=== PATIENT | female | born 1950 ===

== ENCOUNTER 2017-11-05 10:44 | Inpatient (IN) | payer MEDICARE, OTHER ==
[2017-11-05 10:57] VITALS: BMI 23.3
[2017-11-06 06:31] LABS: HEMOGLOBIN 8.9 g/dL (12.0-16.0); MEAN CELL VOLUME 91.9 fl (81.0-99.0); MEAN CORPUSCULAR HGB CONC 34.8 g/dL (33.0-37.0); RBC 2.79 Mil/uL (3.80-5.20); RED CELL DISTRIBUTION WIDTH 14.1 % (11.5-14.5); WHITE BLOOD COUNT 8.8 K/uL (4.8-10.8)
[2017-11-06 07:13] LABS: ALBUMIN 2.9 g/dL (3.5-5.0); CALCIUM 9.5 mg/dL (8.4-10.2)
[2017-11-06] MEDS: Lidocaine 5% Patch TD SCH (08:11)
--- NOTE | 2017-11-06 16:56 | PCM.OPOC ---
Physiatry Overall Plan of Care - Overall Plan of Care Estimated Length of Stay in Weeks: 4 Rehab Impairment: Mobility, Gait, Speech, Balance, Coordination Etiologic Diagnosis: Cerebrovascular Accident Rehab/Medical Prognosis: Guarded - Anticipated Interventions Physical Therapy:: Yes Occupational Therapy:: Yes Speech Therapy:: Yes Recreational Therapy:: Yes - Therapy Goals Bed Mobility: Moderate Assistance Ambulation: Moderate Assistance Functional Positional Changes:: Moderate Assistance - Discharge Plan Identification of Barriers to Discharge: Home Situation Discharge Destination: Subacute
--- NOTE | 2017-11-06 17:03 | CP.PCM.CON ---
History of Present Illness - History of Present Illness History of Present Illness: Dr Michelle PMR consultation on Marilyn Givens, born 1950, who has been admitted to [facility] for acute inpatient rehabilitation following a left CVA with dense right HP. There is some UE/LE ROM but 1-2/5 overall. Had been living alone [employer]. tPA had been given in the ER. New severe expressive aphasia Review of Systems - Review of Systems Systems not reviewed;Unavailable: Other (expressive aphasia) Past Patient History - Past Medical History & Family History Past Medical History?: Yes - Past Social History Smoking Status: Never Smoked Alcohol: None Drugs: Denies Home Situation {Lives}: Alone - CARDIAC Hx Hypercholesterolemia: Yes Hx Hypertension: Yes - PULMONARY Hx Respiratory Disorders: No - NEUROLOGICAL HX Cerebrovascular Accident: Yes - HEENT Hx HEENT Problems: No Hx Difficulty Chewing: Yes (loose dentures) - RENAL Hx Chronic Kidney Disease: No - ENDOCRINE/METABOLIC Hx Diabetes Mellitus Type 2: Yes - HEMATOLOGICAL/ONCOLOGICAL Hx AIDS: No Hx Human Immunodeficiency Virus (HIV): No - INTEGUMENTARY Hx Dermatological Problems: No - MUSCULOSKELETAL/RHEUMATOLOGICAL Hx Falls: Yes - GASTROINTESTINAL Hx Gastrointestinal Disorders: No - GENITOURINARY/GYNECOLOGICAL Hx Genitourinary Disorders: No - PSYCHIATRIC Hx Substance Use: No - SURGICAL HISTORY Hx Surgeries: No - ANESTHESIA Hx Anesthesia: No Meds Allergies/Adverse Reactions: Allergies Allergy/AdvReac Type Severity Reaction Status Date / Time No Known Allergies Allergy Verified 10/25/17 11:35 - Medications Medications: Current Medications Amlodipine Besylate (Norvasc) 5 mg PEG DAILY [facility] Aspirin (Aspirin Chewable) 81 mg PEG DAILY [facility] Last Admin: 11/06/17 08:11 Dose: 81 mg Atorvastatin Calcium (Lipitor) 20 mg PEG HS [facility] Last Admin: 11/05/17 21:25 Dose: 20 mg Clopidogrel Bisulfate (Plavix) 75 mg PEG DAILY [facility] Last Admin: 11/06/17 08:11 Dose: 75 mg Clotrimazole (Lotrimin 1% Cream) 1 applic TOP TID [facility] Last Admin: 11/05/17 17:16 Dose: Not Given Heparin Sodium (Porcine) (Heparin) 5,000 units SC Q12 [facility] PRN Reason: Protocol Last Admin: 11/06/17 08:11 Dose: 5,000 units Hydralazine HCl (Apresoline) 25 mg PEG Q8 [facility] Last Admin: 11/06/17 13:03 Dose: 25 mg Labetalol HCl (Trandate) 100 mg PEG Q8 [facility] Last Admin: 11/06/17 13:03 Dose: 100 mg Lidocaine (Lidoderm) 1 ea TD DAILY [facility] Last Admin: 11/06/17 08:11 Dose: 1 ea Lisinopril (Zestril) 20 mg PEG DAILY [facility] Last Admin: 11/06/17 08:11 Dose: 20 mg Metformin HCl (Glucophage) 500 mg PEG BIDWM [facility] Last Admin: 11/06/17 08:10 Dose: 500 mg Physical Exam - Constitutional Appears: Non-toxic - Head Exam Head Exam: ATRAUMATIC, NORMAL INSPECTION, NORMOCEPHALIC - Eye Exam Eye Exam: EOMI - ENT Exam ENT Exam: Mucous Membranes Moist - Respiratory Exam Respiratory Exam: NORMAL BREATHING PATTERN - Cardiovascular Exam Cardiovascular Exam: REGULAR RHYTHM - GI/Abdominal Exam GI & Abdominal Exam: Normal Bowel Sounds - Extremities Exam Extremities exam: Negative for: calf tenderness - Neurological Exam Neurological exam: Alert - Psychiatric Exam Psychiatric exam: Flat Affect - Skin Skin Exam: Warm Results - Vital Signs Recent Vital Signs: Last Vital Signs Temp 97.9 F 11/06/17 08:13 Pulse 60 11/06/17 13:03 Resp 18 11/06/17 10:28 BP 128/60 11/06/17 13:03 Pulse Ox 96 11/06/17 10:28 - Labs Result Diagrams: 11/06/17 05:15 11/06/17 05:15 Labs: Laboratory Results - last 24 hr 11/05/17 11/06/17 11/06/17 21:01 05:15 05:15 WBC 8.8 RBC 2.79 L Hgb 8.9 L Hct 25.6 L MCV 91.9 MCH 32.0 H MCHC 34.8 RDW 14.1 Plt Count 252 Sodium 134 Potassium 4.3 Chloride 101 Carbon Dioxide 27 Anion Gap 10 BUN 39 H Creatinine 1.2 Est GFR ( Amer) 54 Est GFR (Non-Af Amer) 45 POC Glucose (mg/dL) 148 H Random Glucose 176 H Calcium 9.5 Total Bilirubin 0.3 AST 26 ALT 23 Alkaline Phosphatase 66 Total Protein 5.8 L Albumin 2.9 L Globulin 2.9 Albumin/Globulin Ratio 1.0 TSH 3rd Generation 4.63 11/06/17 11/06/17 11/06/17 05:51 11:48 16:09 WBC RBC Hgb Hct MCV MCH MCHC RDW Plt Count Sodium Potassium Chloride Carbon Dioxide Anion Gap BUN Creatinine Est GFR ( Amer) Est GFR (Non-Af Amer) POC Glucose (mg/dL) 178 H 152 H 152 H Random Glucose Calcium Total Bilirubin AST ALT Alkaline Phosphatase Total Protein Albumin Globulin Albumin/Globulin Ratio TSH 3rd Generation Assessment & Plan - Assessment and Plan (Free Text) Assessment: Dense right HP 1-2/5 strength in UE/LE, dense expressive aphasia Will need HOLGER given the presentation + nicole cath now PT/OT to continue to help increase functional independence Team conference for d/c planning Pain: controlled Vascular: no evidence of DVT GI: No evidence of constipation or diarrhea : continue nicole but look to d/c shortly Patient is an excellent acute rehabilitation candidate and will have focused speech, PT, OT and recreational therapy to help facilitate a safe and appropriate d/c plan
[2017-11-06] MEDS ORDERED: Proshield Plus GEL TOP SCH (19:15)
[2017-11-06] MEDS: Proshield Plus GEL TOP SCH (23:31)
[2017-11-07 06:35] LABS: HEMOGLOBIN 9.1 g/dL (12.0-16.0); MEAN CELL VOLUME 92.3 fl (81.0-99.0); MEAN CORPUSCULAR HEMOGLOBIN 31.7 pg (27.0-31.0); MEAN CORPUSCULAR HGB CONC 34.3 g/dL (33.0-37.0); RBC 2.87 Mil/uL (3.80-5.20); RED CELL DISTRIBUTION WIDTH 13.6 % (11.5-14.5); WHITE BLOOD COUNT 10.3 K/uL (4.8-10.8)
[2017-11-07 07:13] LABS: IRON 26 ug/dL (37-170)
[2017-11-07 07:22] LABS: % IRON SATURATION 10 % (20-55); TOTAL IRON BINDING CAPACITY 251 ug/dL (250-450)
[2017-11-07] MEDS: Lidocaine 5% Patch TD SCH (08:50)
[2017-11-07] MEDS: Proshield Plus GEL TOP SCH ×2 (08:59→21:37)
[2017-11-07 09:10] LABS: FERRITIN 81.7 ng/Ml (11.1-264.0)
[2017-11-07] MEDS: Ferrous Sulfate 300 mg/5 mL Liq UD PEG SCH (16:42)
--- NOTE | 2017-11-07 17:34 | CP.PCM.HP ---
History of Present Illness - History of Present Illness History of Present Illness: This is a 66 y/o female admitted to rehab after an 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 She presented more than a week ago to ER with hx of fall and a new onset of rigth hemiparesis which progressed to right hemiplegia. She had previous CVA with mild left hemiparesis. She initially was able to speak and swallow well however noted worsening of speech and swallowing on the 5th day of hospitalization. A repeat Ct scan of the brain showed the infarct to be more conspicuous but not evolved to hemorrhagic state. Patient's neurological condition however worsened. She was apparently non compliant with her meds. She was noted to have elevated BP when she was in the medical floor. Present on Admission - Present on Admission Any Indicators Present on Admission: No History of DVT/PE: No History of Uncontrolled Diabetes: No Urinary Catheter: No Decubitus Ulcer Present: No Review of Systems - Neurological Neurological: Abnormal Gait, Abnormal Speech, Dizziness, Weakness Past Patient History - Past Medical History & Family History Past Medical History?: Yes - Past Social History Smoking Status: Never Smoked Alcohol: None Drugs: Denies Home Situation {Lives}: Alone - CARDIAC Hx Hypercholesterolemia: Yes Hx Hypertension: Yes - PULMONARY Hx Respiratory Disorders: No - NEUROLOGICAL HX Cerebrovascular Accident: Yes - HEENT Hx HEENT Problems: No Hx Difficulty Chewing: Yes (loose dentures) - RENAL Hx Chronic Kidney Disease: No - ENDOCRINE/METABOLIC Hx Diabetes Mellitus Type 2: Yes - HEMATOLOGICAL/ONCOLOGICAL Hx AIDS: No Hx Human Immunodeficiency Virus (HIV): No - INTEGUMENTARY Hx Dermatological Problems: No - MUSCULOSKELETAL/RHEUMATOLOGICAL Hx Falls: Yes - GASTROINTESTINAL Hx Gastrointestinal Disorders: No - GENITOURINARY/GYNECOLOGICAL Hx Genitourinary Disorders: No - PSYCHIATRIC Hx Substance Use: No - SURGICAL HISTORY Hx Surgeries: No - ANESTHESIA Hx Anesthesia: No Meds Allergies/Adverse Reactions: Allergies Allergy/AdvReac Type Severity Reaction Status Date / Time No Known Allergies Allergy Verified 10/25/17 11:35 Physical Exam - Head Exam Head Exam: NORMAL INSPECTION - Eye Exam Eye Exam: Normal appearance - ENT Exam ENT Exam: Mucous Membranes Moist - Respiratory Exam Respiratory Exam: NORMAL BREATHING PATTERN - Cardiovascular Exam Cardiovascular Exam: REGULAR RHYTHM - GI/Abdominal Exam GI & Abdominal Exam: Normal Bowel Sounds - Neurological Exam Neurological exam: Alert Additional comments: right facial palsy and right ext weakness ( hemiplegia) Results - Vital Signs Recent Vital Signs: Last Vital Signs Temp 97.5 F L 11/07/17 07:33 Pulse 62 11/07/17 15:00 Resp 20 11/07/17 15:00 BP 106/67 11/07/17 15:00 Pulse Ox 96 11/07/17 15:00 - Labs Result Diagrams: 11/07/17 05:15 11/06/17 05:15 Labs: Laboratory Results - last 24 hr 11/06/17 11/07/17 11/07/17 20:59 05:15 05:15 WBC 10.3 RBC 2.87 L Hgb 9.1 L Hct 26.5 L MCV 92.3 MCH 31.7 H MCHC 34.3 RDW 13.6 Plt Count 245 POC Glucose (mg/dL) 162 H Iron TIBC % Saturation Ferritin 81.7 Vitamin B12 351 11/07/17 11/07/17 11/07/17 05:46 06:29 11:55 WBC RBC Hgb Hct MCV MCH MCHC RDW Plt Count POC Glucose (mg/dL) 192 H 183 H Iron 26 L TIBC 251 % Saturation 10 L Ferritin Vitamin B12 11/07/17 16:23 WBC RBC Hgb Hct MCV MCH MCHC RDW Plt Count POC Glucose (mg/dL) 151 H Iron TIBC % Saturation Ferritin Vitamin B12 Assessment & Plan (1) Hemiplegia affecting dominant side Status: Acute (2) Dysphagia Status: Acute (3) CVA (cerebral vascular accident) Status: Acute Priority: High (4) Hyperglycemia Status: Acute (5) Hyperlipidemia Status: Acute (6) Hypertension Status: Acute - Assessment and Plan (Free Text) Plan: cont meds check a1c gi prophy check stool occult blood cont meds Plavix start PT. speech therapy
--- NOTE | 2017-11-07 17:47 | CP.PCM.PN ---
Subjective - Date & Time of Evaluation Date of Evaluation: 11/07/17 Time of Evaluation: 12:00 - Subjective Subjective: Noted very low Hgb Noted persistently elevated FBS Last a1c was 6.7 not currently on any hypoglycemics Has no headaches BP is much more stable Noted to be more conversant. Objective - Vital Signs/Intake and Output Vital Signs (last 24 hours): Temp Pulse Resp BP Pulse Ox 97.5 F L 62 20 106/67 96 11/07/17 07:33 11/07/17 15:00 11/07/17 15:00 11/07/17 15:00 11/07/17 15:00 Intake and Output: 11/07/17 11/07/17 06:59 18:59 Intake Total 1270 Output Total 500 Balance 770 - Medications Medications: Current Medications Amlodipine Besylate (Norvasc) 5 mg PEG DAILY [facility] Last Admin: 11/07/17 08:50 Dose: 5 mg Aspirin (Aspirin Chewable) 81 mg PEG DAILY [facility] Last Admin: 11/07/17 08:49 Dose: 81 mg Atorvastatin Calcium (Lipitor) 20 mg PEG HS [facility] Last Admin: 11/06/17 21:26 Dose: 20 mg Clopidogrel Bisulfate (Plavix) 75 mg PEG DAILY [facility] Last Admin: 11/07/17 08:49 Dose: 75 mg Dimethicone (Proshield Plus Skin Protectant) 1 applic TOP Q12@1000,2200 [facility] Last Admin: 11/07/17 08:59 Dose: 1 applic Diphenoxylate HCl/Atropine (Lomotil 0.025-2.5 Mg Tablet) 1 tab PO QID PRN PRN Reason: Diarrhea Famotidine (Pepcid) 40 mg PEG HS [facility] Last Admin: 11/06/17 21:27 Dose: 40 mg Ferrous Sulfate (Feosol Liq) 300 mg PEG BID [facility] Last Admin: 11/07/17 16:42 Dose: 300 mg Hydralazine HCl (Apresoline) 25 mg PEG Q8 [facility] Last Admin: 11/07/17 14:00 Dose: 25 mg Labetalol HCl (Trandate) 100 mg PEG Q8 [facility] Last Admin: 11/07/17 14:10 Dose: 100 mg Lidocaine (Lidoderm) 1 ea TD DAILY [facility] Last Admin: 11/07/17 08:50 Dose: 1 ea Lisinopril (Zestril) 20 mg PEG DAILY [facility] Last Admin: 11/07/17 08:50 Dose: 20 mg Metformin HCl (Glucophage) 500 mg PEG BIDWM [facility] Last Admin: 11/07/17 16:42 Dose: 500 mg - Labs Labs: 11/07/17 05:15 11/06/17 05:15 - Head Exam Head Exam: NORMAL INSPECTION - Eye Exam Eye Exam: Normal appearance - Respiratory Exam Respiratory Exam: NORMAL BREATHING PATTERN - Cardiovascular Exam Cardiovascular Exam: REGULAR RHYTHM - GI/Abdominal Exam GI & Abdominal Exam: Normal Bowel Sounds - Neurological Exam Neurological Exam: Awake, Oriented x3 - Psychiatric Exam Psychiatric exam: Normal Mood Assessment and Plan (1) Hemiplegia affecting dominant side Status: Acute (2) Dysphagia Status: Acute (3) CVA (cerebral vascular accident) Status: Acute (4) Hyperglycemia Status: Acute (5) Hyperlipidemia Status: Acute (6) Hypertension Status: Acute (7) Diabetes mellitus type 2 in nonobese Status: Acute - Assessment and Plan (Free Text) Plan: start Metformin thru peg cont meds Dc colace start januvia thru PEG cont accucheck
[2017-11-08] MEDS: Atropine-Diphenoxylate 0.025-2.5 mg Tab PO PRN ×2 (00:03→21:48)
[2017-11-08] MEDS: Ferrous Sulfate 300 mg/5 mL Liq UD PEG SCH ×2 (09:03→16:41)
[2017-11-08] MEDS: Lidocaine 5% Patch TD SCH (09:03)
[2017-11-08] MEDS: Proshield Plus GEL TOP SCH ×2 (09:05→21:41)
[2017-11-08] MEDS ORDERED: Albuterol 0.042% Inhal Sol (1.25 mg/3 mL) UD INH PRN (12:56)
--- NOTE | 2017-11-08 14:02 | RAD ---
Date of service: 11/08/2017 HISTORY: congestion COMPARISON: 10/25/2017. FINDINGS: LUNGS: No active pulmonary disease. PLEURA: No significant pleural effusion identified, no pneumothorax apparent. CARDIOVASCULAR: No radiographic findings to suggest acute or significant cardiovascular disease. OSSEOUS STRUCTURES: No significant abnormalities. VISUALIZED UPPER ABDOMEN: Normal. OTHER FINDINGS: None. IMPRESSION: No active disease. No significant interval change compared to the prior examination(s).
--- NOTE | 2017-11-08 17:55 | CP.PCM.PN ---
Subjective - Date & Time of Evaluation Date of Evaluation: 11/08/17 Time of Evaluation: 17:54 - Subjective Subjective: Patient seen in the room dense aphasia dense HP very limited function will need HOLGER and likely LTC if there is not significant support Objective - Vital Signs/Intake and Output Vital Signs (last 24 hours): Temp Pulse Resp BP Pulse Ox 98.8 F 80 20 130/70 100 11/07/17 21:32 11/08/17 14:00 11/07/17 21:32 11/08/17 14:00 11/08/17 09:00 Intake and Output: 11/08/17 11/08/17 06:59 18:59 Intake Total 1370 610 Output Total 900 500 Balance 470 110 - Medications Medications: Current Medications Albuterol Sulfate (Albuterol 0.042% Inhal Gabriella (1.25mg/3ml) Ud) 1.25 mg INH RQ6 PRN PRN Reason: Shortness of Breath Amlodipine Besylate (Norvasc) 5 mg PEG DAILY [facility] Last Admin: 11/08/17 09:04 Dose: 5 mg Aspirin (Aspirin Chewable) 81 mg PEG DAILY [facility] Last Admin: 11/08/17 09:03 Dose: 81 mg Atorvastatin Calcium (Lipitor) 20 mg PEG HS [facility] Last Admin: 11/07/17 21:38 Dose: 20 mg Clopidogrel Bisulfate (Plavix) 75 mg PEG DAILY [facility] Last Admin: 11/08/17 09:05 Dose: 75 mg Dimethicone (Proshield Plus Skin Protectant) 1 applic TOP Q12@1000,2200 [facility] Last Admin: 11/08/17 09:05 Dose: 1 applic Diphenoxylate HCl/Atropine (Lomotil 0.025-2.5 Mg Tablet) 1 tab PO QID PRN PRN Reason: Diarrhea Last Admin: 11/08/17 00:03 Dose: 1 tab Famotidine (Pepcid) 40 mg PEG HS [facility] Last Admin: 11/07/17 21:38 Dose: 40 mg Ferrous Sulfate (Feosol Liq) 300 mg PEG BID [facility] Last Admin: 11/08/17 16:41 Dose: 300 mg Hydralazine HCl (Apresoline) 25 mg PEG Q8 [facility] Last Admin: 11/08/17 14:00 Dose: 25 mg Labetalol HCl (Trandate) 100 mg PEG Q8 [facility] Last Admin: 11/08/17 15:00 Dose: 100 mg Lidocaine (Lidoderm) 1 ea TD DAILY [facility] Last Admin: 11/08/17 09:03 Dose: 1 ea Lisinopril (Zestril) 20 mg PEG DAILY [facility] Last Admin: 11/08/17 09:05 Dose: 20 mg Metformin HCl (Glucophage) 500 mg PEG BIDWM [facility] Last Admin: 11/08/17 16:40 Dose: 500 mg - Labs Labs: 11/07/17 05:15 11/06/17 05:15
[2017-11-09] MEDS: Lidocaine 5% Patch TD SCH (08:31)
[2017-11-09] MEDS: Ferrous Sulfate 300 mg/5 mL Liq UD PEG SCH ×2 (08:39→17:00)
[2017-11-09] MEDS: Proshield Plus GEL TOP SCH ×2 (13:33→21:04)
[2017-11-09] MEDS: Albuterol 0.083% Inhal Sol (2.5 mg/3 mL) UD INH SCH (19:23)
[2017-11-09] MEDS ORDERED: Albuterol 0.042% Inhal Sol (1.25 mg/3 mL) UD INH SCH (20:00)
[2017-11-10] MEDS: Albuterol 0.083% Inhal Sol (2.5 mg/3 mL) UD INH SCH ×4 (02:20→19:47)
[2017-11-10] MEDS: Lidocaine 5% Patch TD SCH (08:22)
[2017-11-10] MEDS: Ferrous Sulfate 300 mg/5 mL Liq UD PEG SCH ×2 (08:23→17:32)
[2017-11-10] MEDS: Proshield Plus GEL TOP SCH ×2 (10:18→21:01)
--- NOTE | 2017-11-10 16:54 | CP.PCM.CON ---
History of Present Illness - History of Present Illness History of Present Illness: Neurology Consultation Note: Mrs. Givens is a 66-year-old woman with a past medical history of ischemic stroke about 3 years ago, with some slight left sided residual weakness, who presented to the ED 1.5 hours after the acute onset of right side weakness resulting in a fall, and an NIHSS of 5. Non-contrast CT scan of the head showed chronic bilateral lacunar infarcts, but no acute bleed or evidence of new infarct. She was a good candidate for IV tPA, but her BP was elevated above 185 /105 mm Hg. She was given IV labetelol and it went down appropriately. The patient consented to IV tPA after the risks and benefits were explained. A CTA of the head/neck was ordered and did not show any large vessel occlusion. On 10/26, the patient had an MRI that should left basal ganglia infarct. She was managed in telemetry and started on Aspirin/Plavix and lipitor. She progressed to have more significant aphasia and right side weakness. She was transferred to inpatient acute rehab on 11/06/17 for further care, and neurology was consulted to follow up. Review of Systems - Review of Systems All systems: reviewed and no additional remarkable complaints except Past Patient History - Past Medical History & Family History Past Medical History?: Yes - Past Social History Smoking Status: Never Smoked Alcohol: None Drugs: Denies Home Situation {Lives}: Alone - CARDIAC Hx Hypercholesterolemia: Yes Hx Hypertension: Yes - PULMONARY Hx Respiratory Disorders: No - NEUROLOGICAL HX Cerebrovascular Accident: Yes - HEENT Hx HEENT Problems: No Hx Difficulty Chewing: Yes (loose dentures) - RENAL Hx Chronic Kidney Disease: No - ENDOCRINE/METABOLIC Hx Diabetes Mellitus Type 2: Yes - HEMATOLOGICAL/ONCOLOGICAL Hx AIDS: No Hx Human Immunodeficiency Virus (HIV): No - INTEGUMENTARY Hx Dermatological Problems: No - MUSCULOSKELETAL/RHEUMATOLOGICAL Hx Falls: Yes - GASTROINTESTINAL Hx Gastrointestinal Disorders: No - GENITOURINARY/GYNECOLOGICAL Hx Genitourinary Disorders: No - PSYCHIATRIC Hx Substance Use: No - SURGICAL HISTORY Hx Surgeries: No - ANESTHESIA Hx Anesthesia: No Meds Allergies/Adverse Reactions: Allergies Allergy/AdvReac Type Severity Reaction Status Date / Time No Known Allergies Allergy Verified 10/25/17 11:35 - Medications Medications: Current Medications Albuterol Sulfate (Albuterol 0.083% Inhal Gabriella (2.5 Mg/3 Ml) Ud) 2.5 mg INH RQ6 [facility] Last Admin: 11/10/17 13:40 Dose: 2.5 mg Amlodipine Besylate (Norvasc) 5 mg PEG DAILY [facility] Last Admin: 11/10/17 08:21 Dose: 5 mg Aspirin (Aspirin Chewable) 81 mg PEG DAILY [facility] Last Admin: 11/10/17 08:22 Dose: 81 mg Atorvastatin Calcium (Lipitor) 20 mg PEG HS [facility] Last Admin: 11/09/17 21:03 Dose: 20 mg Clopidogrel Bisulfate (Plavix) 75 mg PEG DAILY [facility] Last Admin: 11/10/17 08:20 Dose: 75 mg Dimethicone (Proshield Plus Skin Protectant) 1 applic TOP Q12@1000,2200 [facility] Last Admin: 11/10/17 10:18 Dose: 1 applic Diphenoxylate HCl/Atropine (Lomotil 0.025-2.5 Mg Tablet) 1 tab PO QID PRN PRN Reason: Diarrhea Last Admin: 11/08/17 21:48 Dose: 1 tab Famotidine (Pepcid) 40 mg PEG HS [facility] Last Admin: 11/09/17 21:03 Dose: 40 mg Ferrous Sulfate (Feosol Liq) 300 mg PEG BID [facility] Last Admin: 11/10/17 08:23 Dose: 300 mg Hydralazine HCl (Apresoline) 25 mg PEG Q8 [facility] Last Admin: 11/10/17 14:10 Dose: 25 mg Labetalol HCl (Trandate) 100 mg PEG Q8 [facility] Last Admin: 11/10/17 14:10 Dose: 100 mg Lidocaine (Lidoderm) 1 ea TD DAILY [facility] Last Admin: 11/10/17 08:22 Dose: 1 ea Lisinopril (Zestril) 20 mg PEG DAILY [facility] Last Admin: 11/10/17 08:20 Dose: 20 mg Metformin HCl (Glucophage) 500 mg PEG BIDWM [facility] Last Admin: 11/10/17 08:24 Dose: 500 mg Physical Exam - Neurological Exam Additional comments: NIHSS = 14 - Expanded Neurological Exam Expanded Neurological exam: Expressive Aphasia, Receptive Aphasia Patient oriented to: person, place Speech: Expressive Aphasia, Garbled Speech Cranial nerves: EOM's Intact: Normal, Facial Palsey w/Forehead Movement: Abnormal Right, Facial Sensation: Abnormal Right Ataxia: No Cerebellar Function: Finger to Nose: Abnormal Right, Heel to Hauser: Abnormal Right Upper motor neuron: Babinski Sign: Abnormal Right Sensory exam: Lower Extremity Light Touch: Abnormal Right, Lower Extremity Pin Prick: Abnormal Right, Upper Extremity Light Touch: Abnormal Right, Upper Extremity Pin Prick: Abnormal Right Neuro motor strength exam: Left Upper Extremity: 4, Right Upper Extremity: 0, Left Lower Extremity: 4, Right Lower Extremity: 2/1 DTR: Bicep Right: 3+, Patellar Right: 3+ - Psychiatric Exam Psychiatric exam: Anxious Results - Vital Signs Recent Vital Signs: Last Vital Signs Temp 97 F L 11/10/17 09:28 Pulse 78 11/10/17 14:10 Resp 21 11/10/17 09:28 BP 135/66 11/10/17 14:10 Pulse Ox 100 11/10/17 09:28 - Labs Result Diagrams: 11/07/17 05:15 11/06/17 05:15 Labs: Laboratory Results - last 24 hr 11/09/17 11/10/17 11/10/17 20:57 05:30 11:29 POC Glucose (mg/dL) 109 101 159 H 11/10/17 16:44 POC Glucose (mg/dL) 117 H Assessment & Plan (1) CVA (cerebral vascular accident) Assessment and Plan: The patient's symptoms are significant considering the MRI did not show a severe stroke. However, she has bilateral infarcts and chronic strokes that could be cumulative. Will continue dual antiplatelet therapy for secondary stroke prevention along with statin. I recommend starting SSRI per the FLAME trial to improve motor outcome. PT/OT per the rehab team. Will order repeat non-contrast CT head to follow stroke progression. Thank you. Status: Acute Priority: High
[2017-11-11] MEDS: Albuterol 0.083% Inhal Sol (2.5 mg/3 mL) UD INH SCH ×4 (01:05→19:07)
--- NOTE | 2017-11-11 08:04 | CT ---
EXAM: CT Head Without Intravenous Contrast CLINICAL HISTORY: 66 years old, female; Signs and symptoms; Other: Stroke follow up TECHNIQUE: Axial computed tomography images of the head/brain without intravenous contrast. All CT scans at this facility use at least one of these dose optimization techniques: automated exposure control; mA and/or kV adjustment per patient size (includes targeted exams where dose is matched to clinical indication); or iterative reconstruction. Coronal reformatted images were created and reviewed. COMPARISON: CT - HEAD W/O CONTRAST 10/29/2017 3:13 PM FINDINGS: Brain: No hemorrhage. Central atrophy with moderate periventricular microischemic changes. No edema. Old infarct bilateral basal end in the mid bilateral serna radiata. Ventricles: Prominent from central atrophy. Bones/joints: No acute fracture. Soft tissues: No radiopaque foreign body. Sinuses: No acute sinusitis. Mastoid air cells: No mastoid effusion. Vasculature: Intracranial arterial calcifications. IMPRESSION: No acute CT intracranial abnormalities. Atrophy.
[2017-11-11] MEDS: Lidocaine 5% Patch TD SCH (08:44)
[2017-11-11] MEDS: Venlafaxine 37.5 mg ER Cap PO SCH (08:44)
[2017-11-11] MEDS: Ferrous Sulfate 300 mg/5 mL Liq UD PEG SCH ×2 (08:44→17:45)
--- NOTE | 2017-11-11 08:44 | CP.PCM.PN ---
Subjective - Date & Time of Evaluation Date of Evaluation: 11/09/17 Time of Evaluation: 16:00 - Subjective Subjective: patient has occasional grunting as she felt pain Has no fever. Objective - Vital Signs/Intake and Output Vital Signs (last 24 hours): Temp Pulse Resp BP Pulse Ox 97.3 F L 76 19 131/76 100 11/10/17 22:00 11/11/17 06:40 11/10/17 22:00 11/11/17 06:40 11/10/17 22:00 Intake and Output: 11/11/17 11/11/17 06:59 18:59 Intake Total 1140 Balance 1140 - Medications Medications: Current Medications Acetaminophen (Tylenol 325mg Tab) 650 mg PEG Q6 PRN PRN Reason: Pain, moderate (4-7) Albuterol Sulfate (Albuterol 0.083% Inhal Gabriella (2.5 Mg/3 Ml) Ud) 2.5 mg INH RQ6 [facility] Last Admin: 11/11/17 08:20 Dose: 2.5 mg Amlodipine Besylate (Norvasc) 5 mg PEG DAILY [facility] Last Admin: 11/10/17 08:21 Dose: 5 mg Aspirin (Aspirin Chewable) 81 mg PEG DAILY [facility] Last Admin: 11/10/17 08:22 Dose: 81 mg Atorvastatin Calcium (Lipitor) 20 mg PEG HS [facility] Last Admin: 11/10/17 21:18 Dose: 20 mg Clopidogrel Bisulfate (Plavix) 75 mg PEG DAILY [facility] Last Admin: 11/10/17 08:20 Dose: 75 mg Dimethicone (Proshield Plus Skin Protectant) 1 applic TOP Q12@1000,2200 [facility] Last Admin: 11/10/17 21:01 Dose: 1 applic Diphenoxylate HCl/Atropine (Lomotil 0.025-2.5 Mg Tablet) 1 tab PO QID PRN PRN Reason: Diarrhea Last Admin: 11/08/17 21:48 Dose: 1 tab Famotidine (Pepcid) 40 mg PEG HS [facility] Last Admin: 11/10/17 21:18 Dose: 40 mg Ferrous Sulfate (Feosol Liq) 300 mg PEG BID [facility] Last Admin: 11/10/17 17:32 Dose: 300 mg Hydralazine HCl (Apresoline) 25 mg PEG Q8 [facility] Last Admin: 09/17/18 06:40 Dose: 25 mg Labetalol HCl (Trandate) 100 mg PEG Q8 [facility] Last Admin: 11/11/17 06:39 Dose: 100 mg Lidocaine (Lidoderm) 1 ea TD DAILY [facility] Last Admin: 11/10/17 08:22 Dose: 1 ea Lisinopril (Zestril) 20 mg PEG DAILY [facility] Last Admin: 11/10/17 08:20 Dose: 20 mg Metformin HCl (Glucophage) 500 mg PEG BIDWM [facility] Last Admin: 11/10/17 17:32 Dose: 500 mg Venlafaxine HCl (Effexor Xr) 37.5 mg PO DAILY [facility] - Labs Labs: 11/07/17 05:15 11/06/17 05:15 - Head Exam Head Exam: NORMAL INSPECTION - Eye Exam Eye Exam: Normal appearance - Respiratory Exam Respiratory Exam: Clear to Ausculation Bilateral - Cardiovascular Exam Cardiovascular Exam: REGULAR RHYTHM - GI/Abdominal Exam GI & Abdominal Exam: Normal Bowel Sounds Assessment and Plan (1) Hemiplegia affecting dominant side Status: Acute (2) Dysphagia Status: Acute (3) CVA (cerebral vascular accident) Status: Acute (4) Hyperglycemia Status: Acute (5) Hyperlipidemia Status: Acute (6) Hypertension Status: Acute (7) Diabetes mellitus type 2 in nonobese Status: Acute - Assessment and Plan (Free Text) Plan: Cont meds Cont PT Pain meds. CXR if sx worsen.
--- NOTE | 2017-11-11 08:47 | CP.PCM.PN ---
Subjective - Date & Time of Evaluation Date of Evaluation: 11/10/17 Time of Evaluation: 13:00 - Subjective Subjective: Patient remains stable Has no chest pain or SOB Has no cough. CXR on 11/08 was normal. afebrile Objective - Vital Signs/Intake and Output Vital Signs (last 24 hours): Temp Pulse Resp BP Pulse Ox 97.3 F L 76 19 131/76 100 11/10/17 22:00 11/11/17 06:40 11/10/17 22:00 11/11/17 06:40 11/10/17 22:00 Intake and Output: 11/11/17 11/11/17 06:59 18:59 Intake Total 1140 Balance 1140 - Medications Medications: Current Medications Acetaminophen (Tylenol 325mg Tab) 650 mg PEG Q6 PRN PRN Reason: Pain, moderate (4-7) Albuterol Sulfate (Albuterol 0.083% Inhal Gabriella (2.5 Mg/3 Ml) Ud) 2.5 mg INH RQ6 [facility] Last Admin: 11/11/17 08:20 Dose: 2.5 mg Amlodipine Besylate (Norvasc) 5 mg PEG DAILY [facility] Last Admin: 11/10/17 08:21 Dose: 5 mg Aspirin (Aspirin Chewable) 81 mg PEG DAILY [facility] Last Admin: 11/10/17 08:22 Dose: 81 mg Atorvastatin Calcium (Lipitor) 20 mg PEG HS [facility] Last Admin: 11/10/17 21:18 Dose: 20 mg Clopidogrel Bisulfate (Plavix) 75 mg PEG DAILY [facility] Last Admin: 11/10/17 08:20 Dose: 75 mg Dimethicone (Proshield Plus Skin Protectant) 1 applic TOP Q12@1000,2200 [facility] Last Admin: 11/10/17 21:01 Dose: 1 applic Diphenoxylate HCl/Atropine (Lomotil 0.025-2.5 Mg Tablet) 1 tab PO QID PRN PRN Reason: Diarrhea Last Admin: 11/08/17 21:48 Dose: 1 tab Famotidine (Pepcid) 40 mg PEG HS [facility] Last Admin: 11/10/17 21:18 Dose: 40 mg Ferrous Sulfate (Feosol Liq) 300 mg PEG BID [facility] Last Admin: 11/10/17 17:32 Dose: 300 mg Hydralazine HCl (Apresoline) 25 mg PEG Q8 [facility] Last Admin: 11/11/17 06:40 Dose: 25 mg Labetalol HCl (Trandate) 100 mg PEG Q8 [facility] Last Admin: 11/11/17 06:39 Dose: 100 mg Lidocaine (Lidoderm) 1 ea TD DAILY [facility] Last Admin: 11/10/17 08:22 Dose: 1 ea Lisinopril (Zestril) 20 mg PEG DAILY [facility] Last Admin: 11/10/17 08:20 Dose: 20 mg Metformin HCl (Glucophage) 500 mg PEG BIDWM [facility] Last Admin: 11/10/17 17:32 Dose: 500 mg Venlafaxine HCl (Effexor Xr) 37.5 mg PO DAILY [facility] - Labs Labs: 11/07/17 05:15 11/06/17 05:15 - Head Exam Head Exam: NORMAL INSPECTION - Eye Exam Eye Exam: Normal appearance - Respiratory Exam Respiratory Exam: NORMAL BREATHING PATTERN - Cardiovascular Exam Cardiovascular Exam: REGULAR RHYTHM - GI/Abdominal Exam GI & Abdominal Exam: Normal Bowel Sounds Assessment and Plan (1) Hemiplegia affecting dominant side Status: Acute (2) Dysphagia Status: Acute (3) CVA (cerebral vascular accident) Status: Acute (4) Hyperglycemia Status: Acute (5) Hyperlipidemia Status: Acute (6) Hypertension Status: Acute (7) Diabetes mellitus type 2 in nonobese Status: Acute - Assessment and Plan (Free Text) Plan: Cont meds Cont tx Cont PT
--- NOTE | 2017-11-11 08:49 | CP.PCM.PN ---
Subjective - Date & Time of Evaluation Date of Evaluation: 11/08/17 Time of Evaluation: 11:00 - Subjective Subjective: Patient remains stable She has some pain and expresses it by grunting Has no fever Has no chest pain or SOB. Objective - Vital Signs/Intake and Output Vital Signs (last 24 hours): Temp Pulse Resp BP Pulse Ox 97.3 F L 66 19 131/62 100 11/10/17 22:00 11/11/17 08:46 11/10/17 22:00 11/11/17 08:46 11/10/17 22:00 Intake and Output: 11/11/17 11/11/17 06:59 18:59 Intake Total 1140 Balance 1140 - Medications Medications: Current Medications Acetaminophen (Tylenol 325mg Tab) 650 mg PEG Q6 PRN PRN Reason: Pain, moderate (4-7) Albuterol Sulfate (Albuterol 0.083% Inhal Gabriella (2.5 Mg/3 Ml) Ud) 2.5 mg INH RQ6 [facility] Last Admin: 11/11/17 08:20 Dose: 2.5 mg Amlodipine Besylate (Norvasc) 5 mg PEG DAILY [facility] Last Admin: 11/11/17 08:45 Dose: 5 mg Aspirin (Aspirin Chewable) 81 mg PEG DAILY [facility] Last Admin: 11/11/17 08:43 Dose: 81 mg Atorvastatin Calcium (Lipitor) 20 mg PEG HS [facility] Last Admin: 11/10/17 21:18 Dose: 20 mg Clopidogrel Bisulfate (Plavix) 75 mg PEG DAILY [facility] Last Admin: 11/11/17 08:45 Dose: 75 mg Dimethicone (Proshield Plus Skin Protectant) 1 applic TOP Q12@1000,2200 [facility] Last Admin: 11/10/17 21:01 Dose: 1 applic Diphenoxylate HCl/Atropine (Lomotil 0.025-2.5 Mg Tablet) 1 tab PO QID PRN PRN Reason: Diarrhea Last Admin: 11/08/17 21:48 Dose: 1 tab Famotidine (Pepcid) 40 mg PEG HS [facility] Last Admin: 11/10/17 21:18 Dose: 40 mg Ferrous Sulfate (Feosol Liq) 300 mg PEG BID [facility] Last Admin: 11/11/17 08:44 Dose: 300 mg Hydralazine HCl (Apresoline) 25 mg PEG Q8 [facility] Last Admin: 11/11/17 06:40 Dose: 25 mg Labetalol HCl (Trandate) 100 mg PEG Q8 [facility] Last Admin: 11/11/17 06:39 Dose: 100 mg Lidocaine (Lidoderm) 1 ea TD DAILY [facility] Last Admin: 11/11/17 08:44 Dose: 1 ea Lisinopril (Zestril) 20 mg PEG DAILY [facility] Last Admin: 11/11/17 08:46 Dose: 20 mg Metformin HCl (Glucophage) 500 mg PEG BIDWM [facility] Last Admin: 11/11/17 08:44 Dose: 500 mg Venlafaxine HCl (Effexor Xr) 37.5 mg PO DAILY [facility] Last Admin: 11/11/17 08:44 Dose: 37.5 mg - Labs Labs: 11/07/17 05:15 11/06/17 05:15 - Head Exam Head Exam: NORMAL INSPECTION - Eye Exam Eye Exam: Normal appearance - ENT Exam ENT Exam: Mucous Membranes Moist - Respiratory Exam Respiratory Exam: Clear to Ausculation Bilateral - Cardiovascular Exam Cardiovascular Exam: REGULAR RHYTHM - GI/Abdominal Exam GI & Abdominal Exam: Normal Bowel Sounds Assessment and Plan (1) Hemiplegia affecting dominant side Status: Acute (2) Dysphagia Status: Acute (3) CVA (cerebral vascular accident) Status: Acute (4) Hyperglycemia Status: Acute (5) Hyperlipidemia Status: Acute (6) Hypertension Status: Acute (7) Diabetes mellitus type 2 in nonobese Status: Acute - Assessment and Plan (Free Text) Plan: Cont meds Cont tx Cont Pt tylenol for pain
[2017-11-11] MEDS: Proshield Plus GEL TOP SCH ×2 (12:15→22:16)
[2017-11-12] MEDS: Albuterol 0.083% Inhal Sol (2.5 mg/3 mL) UD INH SCH ×4 (00:59→19:09)
[2017-11-12] MEDS: Atropine-Diphenoxylate 0.025-2.5 mg Tab PO PRN (01:25)
[2017-11-12] MEDS: Ferrous Sulfate 300 mg/5 mL Liq UD PEG SCH ×2 (08:33→17:15)
[2017-11-12] MEDS: Lidocaine 5% Patch TD SCH (08:34)
[2017-11-12] MEDS: Venlafaxine 37.5 mg ER Cap PO SCH (08:34)
[2017-11-12] MEDS: Proshield Plus GEL TOP SCH ×2 (09:09→22:00)
--- NOTE | 2017-11-12 13:18 | PSY.TMCNF ---
Nursing - Vital Signs Vital Signs (Last 8 hours): Vital Signs 11/12/17 11/12/17 11/12/17 05:46 08:00 09:27 Temperature 97.7 F Pulse Rate 69 64 65 Respiratory 20 20 Rate Blood Pressure 134/62 119/57 L 131/65 O2 Sat by Pulse 100 Oximetry 11/12/17 11/12/17 09:29 12:36 Temperature 97.7 F Pulse Rate 65 64 Respiratory 20 Rate Blood Pressure 131/65 119/57 L O2 Sat by Pulse Oximetry Pain: 0 - Precautions: Precautions: Fall Prevention, Aspiration, Pressure Ulcer - Medications/Other Issues Comment: refused tylenol for peg site pain moisture associated redness getting better - Consults Comment: Dr Michelle,Dr Cage - Wound Upper Medial Thigh Wound Type: Moisture Associated Skin Damage Wound Stage: STAGE II Wound Shape: Irregular Wound Bed Greatest Portion: Red (Granulation) Wound Bed Lesser Portion: Red (Granulation) Periwound: Reddened Wound General Appearance: Open to air, Reddened Wound Dressing Status: Open to air - Toileting Toileting: Dependent - Bladder Management Bladder Pattern: Incontinent Voiding Method: Bedpan, Diaper Bladder Management: Dependent Frequency of Accidents: less than 5 - Bowel Management Bowel Pattern: Incontinent Bowel Management: Dependent Frequency of Accidents: less than 4 - Transfers Transfers: Dependent - ADL's ADL's: Dependent - Pain Management Comments: tylenol for pain in the peg site prn - Patient/Family Teaching Comments: aspiration precaution ,pressure ulcer prevention safety fall precaution post cva.oral care - Goals/Time Frame Comments: as per multitidiciplinary paln of care - Provider Provider: Rafaela Steiner Physical Therapy - Bed Mobility Bed Mobility: Maximum Assistance - Transfers Sit to Stand: Maximum Assistance - Ambulation Level of Assistance: Not Tested Assistive Devices: N/A - Stair Negotiation Stairs: Level of Assistance: Not Tested - Standing Balance Static Stand: Maximal Assistance Dynamic Stand: Unable to assess/perform - Pain Comment: pt points to PEG tube insertion site when asked if shes in pain, RN aware - Insight/Carryover Insight/Carryover: Good - Patient/Family Education Comment: CVA recovery, safety, positioning - Assessment/Plan Assessment: Pt is agreeable to participate in recreation therapy tasks during OT session and in recreation therapy sessions. Pt participates in card tasks and connect four tasks. Pt is oriented to modified rick card task, go-fish card task, and connect four task. Pt requires verbal cues and tactile cues for head control, postural control, and for visual scanning. Pt demonstrates improved color and number recognition throughout all leisure tasks. Pt requires hand over hand CGA when picking up cards 2' decrease fine motor control from prior CVA. Pt will continue to benefit from participating in recreation therapy sessions throughout stay on unit. - Goals Timeframe: 3 weeks Goals: SIt < > supine min A. Sit < > stand and bed< > chair transfers with min A. Maintain static sitting at edge of bed x 10 minutes with CGA - Provider Therapist: Jared License Number: [id number] Occupational Therapy - Arousal/Attention/Orientation Patient Orientation: Person, Place - ADL/IADL Self Feeding: Not Applicable Grooming: Verbal Cues, Set-up Help, Maximum Assistance Bathing-Upper Extremity: Dependent Bathing-Lower Extremity: Dependent Dressing-Upper Extremity: Maximum Assistance, Dependent Dressing-Lower Extremity: Dependent Comment: impaired head/trunk control, + impaired endurance - Sitting Balance Static Sitting: Maximal Assistance Dynamic Sitting: Unable to assess/perform Comment: seated unsupported - Transfers Wheelchair to Bed Transfers: Maximum Assistance, Dependent Toilet Transfers: Verbal Cues, Set-up Help, Maximum Assistance Comment: Commode transfers TBA - Wheelchair Management Level of Assistance: Dependent Distance (ft.): 0 - Upper Extremity Status Right Upper Extremity Comment: PROM is WFLS, but impaired overall strength/ motor control Left Upper Extremity Comment: AROM in LUE WFLS except L shoulder flex/abd--1/2 range - Pain Comment: pt points to PEG tube insertion site when asked if shes in pain, RN aware - Insight/Carryover Insight/Carryover: Good - Patient/Family Education Comment: CVA recovery, safety, positioning - Assessment/Plan Assessment: Pt is agreeable to participate in recreation therapy tasks during OT session and in recreation therapy sessions. Pt participates in card tasks and connect four tasks. Pt is oriented to modified rick card task, go-fish card task, and connect four task. Pt requires verbal cues and tactile cues for head control, postural control, and for visual scanning. Pt demonstrates improved color and number recognition throughout all leisure tasks. Pt requires hand over hand CGA when picking up cards 2' decrease fine motor control from prior CVA. Pt will continue to benefit from participating in recreation therapy sessions throughout stay on unit. - Goals Timeframe: 3 weeks Goals: SIt < > supine min A. Sit < > stand and bed< > chair transfers with min A. Maintain static sitting at edge of bed x 10 minutes with CGA - Provider Therapist: SHAUN Ball/[facility] Speech [facility] - Consult Information Patient on Program: Yes Medical Diagnosis: CVA Treatment Diagnosis: -severe dysphagia. -severe dysarthria/apraxia of speech - Assessment Speech/Articulation Impairment: Severe Dysphagia/Swallowing Impairment: Severe - Plan Assessment: Pt is agreeable to participate in recreation therapy tasks during OT session and in recreation therapy sessions. Pt participates in card tasks and connect four tasks. Pt is oriented to modified rick card task, go-fish card task, and connect four task. Pt requires verbal cues and tactile cues for head control, postural control, and for visual scanning. Pt demonstrates improved color and number recognition throughout all leisure tasks. Pt requires hand over hand CGA when picking up cards 2' decrease fine motor control from prior CVA. Pt will continue to benefit from participating in recreation therapy sessions throughout stay on unit. - Provider Therapist: Latha Medina License Number: [id number] Recreational Therapy - Participation Participation: Participates in Individual and/or Group Sessions - Attendance Attendance: 3-5 times per week - Activities Leisure Activities: Cards and Games - Socialization Level of Socialization: Requires 1:1 guidance to respond, Minimal initiation of interaction to request basic needs, Minimal or no response, Socialization severely limited - Diversional Time Diversional Time: listening to music - Assessment Assessment/Plan: Pt is agreeable to participate in recreation therapy tasks during OT session and in recreation therapy sessions. Pt participates in card tasks and connect four tasks. Pt is oriented to modified rick card task, go-fish card task, and connect four task. Pt requires verbal cues and tactile cues for head control, postural control, and for visual scanning. Pt demonstrates improved color and number recognition throughout all leisure tasks. Pt requires hand over hand CGA when picking up cards 2' decrease fine motor control from prior CVA. Pt will continue to benefit from participating in recreation therapy sessions throughout stay on unit. Problems Currently Limiting Participation: severe speech deficits, severe swallowing deficits, decrease leisure awareness level, limited social support, decrease activity tolerance level, R side weakness. Goals and Time Frame: Pt will be encouraged to participate in 1:1 and group recreation therapy sessions to improve attention to task, postural control in wheelchair, turn taking and initiation, arousal level, and command following level. - Provider Therapist: Brittany Griffith, [employer] #[id number] Nutrition - Current Diet Current Diet/ Supplement/ Feedings: NPO Glucerna 1.2 70 ml/hr continous via gastrostomy tube for 20 hours. 150 ml water flush every 8 hours. feeding off when in therapy - Appetite Percent Meal Consumed: None - Comments Comments: aspiration precaution ,pressure ulcer prevention safety fall precaution post cva.oral care - Assessment/Goals/Time Frame Assessment/Goals/Time Frame: refused tylenol for peg site pain moisture associated redness getting better - Provider Provider: Marilyn Casillas RD Case Management - Discharge Plan Discharge Plan: Subacute care Rehabilitation Plan - Treatment Plan Treatment Plan: Physical Therapy, Occupational Therapy, Speech, Dietary - Discharge Plan Estimated Date of Discharge: 11/29/17 Discharge to: Subacute
--- NOTE | 2017-11-12 13:34 | CP.PCM.PN ---
Subjective - Date & Time of Evaluation Date of Evaluation: 11/12/17 Time of Evaluation: 13:33 - Subjective Subjective: Patient seen in the room. NAD non-verbal working very hard though and in spite of lack of real FIM changes she is working hard hard in therapies and getting some return continue current care Objective - Vital Signs/Intake and Output Vital Signs (last 24 hours): Temp Pulse Resp BP Pulse Ox 97.7 F 64 20 119/57 L 100 11/12/17 12:36 11/12/17 12:36 11/12/17 12:36 11/12/17 12:36 11/12/17 08:00 Intake and Output: 11/12/17 11/12/17 06:59 18:59 Intake Total 1040 Balance 1040 - Medications Medications: Current Medications Acetaminophen (Tylenol 325mg Tab) 650 mg PEG Q6 PRN PRN Reason: Pain, moderate (4-7) Last Admin: 11/11/17 14:48 Dose: 650 mg Albuterol Sulfate (Albuterol 0.083% Inhal Gabriella (2.5 Mg/3 Ml) Ud) 2.5 mg INH RQ6 [facility] Last Admin: 11/12/17 07:54 Dose: 2.5 mg Amlodipine Besylate (Norvasc) 5 mg PEG DAILY [facility] Last Admin: 11/12/17 09:29 Dose: 5 mg Aspirin (Aspirin Chewable) 81 mg PEG DAILY [facility] Last Admin: 11/12/17 08:34 Dose: 81 mg Atorvastatin Calcium (Lipitor) 20 mg PEG HS [facility] Last Admin: 11/11/17 22:02 Dose: 20 mg Clopidogrel Bisulfate (Plavix) 75 mg PEG DAILY [facility] Last Admin: 11/12/17 08:36 Dose: 75 mg Dimethicone (Proshield Plus Skin Protectant) 1 applic TOP Q12@1000,2200 [facility] Last Admin: 11/12/17 09:09 Dose: 1 applic Diphenoxylate HCl/Atropine (Lomotil 0.025-2.5 Mg Tablet) 1 tab PO QID PRN PRN Reason: Diarrhea Last Admin: 11/12/17 01:25 Dose: 1 tab Famotidine (Pepcid) 40 mg PEG HS [facility] Last Admin: 11/11/17 22:03 Dose: 40 mg Ferrous Sulfate (Feosol Liq) 300 mg PEG BID [facility] Last Admin: 11/12/17 08:33 Dose: 300 mg Hydralazine HCl (Apresoline) 25 mg PEG Q8 [facility] Last Admin: 11/12/17 05:46 Dose: 25 mg Labetalol HCl (Trandate) 100 mg PEG Q8 [facility] Last Admin: 11/12/17 05:46 Dose: 100 mg Lidocaine (Lidoderm) 1 ea TD DAILY [facility] Last Admin: 11/12/17 08:34 Dose: 1 ea Lisinopril (Zestril) 20 mg PEG DAILY [facility] Last Admin: 11/12/17 09:29 Dose: 20 mg Metformin HCl (Glucophage) 500 mg PEG BIDWM [facility] Last Admin: 11/12/17 08:34 Dose: 500 mg Venlafaxine HCl (Effexor Xr) 37.5 mg PO DAILY [facility] Last Admin: 11/12/17 08:34 Dose: 37.5 mg - Labs Labs: 11/07/17 05:15 11/06/17 05:15
--- NOTE | 2017-11-12 20:43 | CP.PCM.PN ---
Subjective - Date & Time of Evaluation Date of Evaluation: 11/12/17 Time of Evaluation: 16:00 - Subjective Subjective: Mrs. Givens was seen and examined today at bedside in acute rehab. She did not have any complaints and there were no acute events overnight. I reviewed her most recent CT head. Objective - Vital Signs/Intake and Output Vital Signs (last 24 hours): Temp Pulse Resp BP Pulse Ox 97.7 F 68 20 139/80 100 11/12/17 12:36 11/12/17 14:00 11/12/17 12:36 11/12/17 14:00 11/12/17 08:00 Intake and Output: 11/12/17 11/13/17 18:59 06:59 Intake Total 740 Output Total 1 Balance 739 - Medications Medications: Current Medications Acetaminophen (Tylenol 325mg Tab) 650 mg PEG Q6 PRN PRN Reason: Pain, moderate (4-7) Last Admin: 11/11/17 14:48 Dose: 650 mg Albuterol Sulfate (Albuterol 0.083% Inhal Gabriella (2.5 Mg/3 Ml) Ud) 2.5 mg INH RQ6 [facility] Last Admin: 11/12/17 19:09 Dose: 2.5 mg Amlodipine Besylate (Norvasc) 5 mg PEG DAILY [facility] Last Admin: 11/12/17 09:29 Dose: 5 mg Aspirin (Aspirin Chewable) 81 mg PEG DAILY [facility] Last Admin: 11/12/17 08:34 Dose: 81 mg Atorvastatin Calcium (Lipitor) 20 mg PEG HS [facility] Last Admin: 11/11/17 22:02 Dose: 20 mg Clopidogrel Bisulfate (Plavix) 75 mg PEG DAILY [facility] Last Admin: 11/12/17 08:36 Dose: 75 mg Dimethicone (Proshield Plus Skin Protectant) 1 applic TOP Q12@1000,2200 [facility] Last Admin: 11/12/17 09:09 Dose: 1 applic Diphenoxylate HCl/Atropine (Lomotil 0.025-2.5 Mg Tablet) 1 tab PO QID PRN PRN Reason: Diarrhea Last Admin: 11/12/17 01:25 Dose: 1 tab Famotidine (Pepcid) 40 mg PEG HS [facility] Last Admin: 11/11/17 22:03 Dose: 40 mg Ferrous Sulfate (Feosol Liq) 300 mg PEG BID [facility] Last Admin: 11/12/17 17:15 Dose: 300 mg Hydralazine HCl (Apresoline) 25 mg PEG Q8 [facility] Last Admin: 11/12/17 14:00 Dose: 25 mg Labetalol HCl (Trandate) 100 mg PEG Q8 [facility] Last Admin: 11/12/17 14:00 Dose: 100 mg Lidocaine (Lidoderm) 1 ea TD DAILY [facility] Last Admin: 11/12/17 08:34 Dose: 1 ea Lisinopril (Zestril) 20 mg PEG DAILY [facility] Last Admin: 11/12/17 09:29 Dose: 20 mg Metformin HCl (Glucophage) 500 mg PEG BIDWM [facility] Last Admin: 11/12/17 17:15 Dose: 500 mg Venlafaxine HCl (Effexor Xr) 37.5 mg PO DAILY [facility] Last Admin: 11/12/17 08:34 Dose: 37.5 mg - Labs Labs: 11/07/17 05:15 11/06/17 05:15 - Neurological Exam Additional comments: Neurologically unchanged compared with previous exam. Assessment and Plan (1) CVA (cerebral vascular accident) Assessment & Plan: Continue current supportive care, secondary stroke prevention, and PT/OT. Neurology will follow. Status: Acute
[2017-11-13] MEDS: Albuterol 0.083% Inhal Sol (2.5 mg/3 mL) UD INH SCH ×4 (01:01→19:47)
[2017-11-13] MEDS: Atropine-Diphenoxylate 0.025-2.5 mg Tab PO PRN (02:08)
--- NOTE | 2017-11-13 07:32 | CP.PCM.PN ---
Subjective - Date & Time of Evaluation Date of Evaluation: 11/11/17 Time of Evaluation: 11:00 - Subjective Subjective: Patient is much more awake Able to communicate with staff Has no fever On continuous feeding. Objective - Vital Signs/Intake and Output Vital Signs (last 24 hours): Temp Pulse Resp BP Pulse Ox 97.2 F L 65 20 137/60 98 11/12/17 20:00 11/13/17 06:33 11/12/17 20:00 11/13/17 06:33 11/12/17 20:00 - Medications Medications: Current Medications Acetaminophen (Tylenol 325mg Tab) 650 mg PEG Q6 PRN PRN Reason: Pain, moderate (4-7) Last Admin: 11/11/17 14:48 Dose: 650 mg Albuterol Sulfate (Albuterol 0.083% Inhal Gabriella (2.5 Mg/3 Ml) Ud) 2.5 mg INH RQ6 [facility] Last Admin: 11/13/17 01:01 Dose: 2.5 mg Amlodipine Besylate (Norvasc) 5 mg PEG DAILY [facility] Last Admin: 11/12/17 09:29 Dose: 5 mg Aspirin (Aspirin Chewable) 81 mg PEG DAILY [facility] Last Admin: 11/12/17 08:34 Dose: 81 mg Atorvastatin Calcium (Lipitor) 20 mg PEG HS [facility] Last Admin: 11/12/17 22:00 Dose: 20 mg Clopidogrel Bisulfate (Plavix) 75 mg PEG DAILY [facility] Last Admin: 11/12/17 08:36 Dose: 75 mg Dimethicone (Proshield Plus Skin Protectant) 1 applic TOP Q12@1000,2200 [facility] Last Admin: 11/12/17 22:00 Dose: 1 applic Diphenoxylate HCl/Atropine (Lomotil 0.025-2.5 Mg Tablet) 1 tab PO QID PRN PRN Reason: Diarrhea Last Admin: 11/13/17 02:08 Dose: 1 tab Famotidine (Pepcid) 40 mg PEG HS [facility] Last Admin: 11/12/17 21:58 Dose: 40 mg Ferrous Sulfate (Feosol Liq) 300 mg PEG BID [facility] Last Admin: 11/12/17 17:15 Dose: 300 mg Hydralazine HCl (Apresoline) 25 mg PEG Q8 [facility] Last Admin: 11/13/17 06:33 Dose: 25 mg Labetalol HCl (Trandate) 100 mg PEG Q8 [facility] Last Admin: 11/13/17 06:34 Dose: 100 mg Lidocaine (Lidoderm) 1 ea TD DAILY [facility] Last Admin: 11/12/17 08:34 Dose: 1 ea Lisinopril (Zestril) 20 mg PEG DAILY [facility] Last Admin: 11/12/17 09:29 Dose: 20 mg Metformin HCl (Glucophage) 500 mg PEG BIDWM [facility] Last Admin: 11/12/17 17:15 Dose: 500 mg Venlafaxine HCl (Effexor Xr) 37.5 mg PO DAILY [facility] Last Admin: 11/12/17 08:34 Dose: 37.5 mg - Labs Labs: 11/07/17 05:15 11/06/17 05:15 - Head Exam Head Exam: NORMAL INSPECTION - Eye Exam Eye Exam: Normal appearance - Respiratory Exam Respiratory Exam: Clear to Ausculation Bilateral - Cardiovascular Exam Cardiovascular Exam: REGULAR RHYTHM - GI/Abdominal Exam GI & Abdominal Exam: Normal Bowel Sounds - Neurological Exam Neurological Exam: Alert, Awake Assessment and Plan (1) Hemiplegia affecting dominant side Status: Acute (2) Dysphagia Status: Acute (3) CVA (cerebral vascular accident) Status: Acute (4) Hyperglycemia Status: Acute (5) Hyperlipidemia Status: Acute (6) Hypertension Status: Acute (7) Diabetes mellitus type 2 in nonobese Status: Acute - Assessment and Plan (Free Text) Plan: Cont meds cont PT add januvia check labs
--- NOTE | 2017-11-13 07:37 | CP.PCM.PN ---
Subjective - Date & Time of Evaluation Date of Evaluation: 11/12/17 Time of Evaluation: 11:00 - Subjective Subjective: Patient remains stable Has no fever Has no chest pain Communicate with staff. Objective - Vital Signs/Intake and Output Vital Signs (last 24 hours): Temp Pulse Resp BP Pulse Ox 97.2 F L 65 20 137/60 98 11/12/17 20:00 11/13/17 06:33 11/12/17 20:00 11/13/17 06:33 11/12/17 20:00 - Medications Medications: Current Medications Acetaminophen (Tylenol 325mg Tab) 650 mg PEG Q6 PRN PRN Reason: Pain, moderate (4-7) Last Admin: 11/11/17 14:48 Dose: 650 mg Albuterol Sulfate (Albuterol 0.083% Inhal Gabriella (2.5 Mg/3 Ml) Ud) 2.5 mg INH RQ6 [facility] Last Admin: 11/13/17 01:01 Dose: 2.5 mg Amlodipine Besylate (Norvasc) 5 mg PEG DAILY [facility] Last Admin: 11/12/17 09:29 Dose: 5 mg Aspirin (Aspirin Chewable) 81 mg PEG DAILY [facility] Last Admin: 11/12/17 08:34 Dose: 81 mg Atorvastatin Calcium (Lipitor) 20 mg PEG HS [facility] Last Admin: 11/12/17 22:00 Dose: 20 mg Clopidogrel Bisulfate (Plavix) 75 mg PEG DAILY [facility] Last Admin: 11/12/17 08:36 Dose: 75 mg Dimethicone (Proshield Plus Skin Protectant) 1 applic TOP Q12@1000,2200 [facility] Last Admin: 11/12/17 22:00 Dose: 1 applic Diphenoxylate HCl/Atropine (Lomotil 0.025-2.5 Mg Tablet) 1 tab PO QID PRN PRN Reason: Diarrhea Last Admin: 11/13/17 02:08 Dose: 1 tab Famotidine (Pepcid) 40 mg PEG HS [facility] Last Admin: 11/12/17 21:58 Dose: 40 mg Ferrous Sulfate (Feosol Liq) 300 mg PEG BID [facility] Last Admin: 11/12/17 17:15 Dose: 300 mg Hydralazine HCl (Apresoline) 25 mg PEG Q8 [facility] Last Admin: 11/13/17 06:33 Dose: 25 mg Labetalol HCl (Trandate) 100 mg PEG Q8 [facility] Last Admin: 11/13/17 06:34 Dose: 100 mg Lidocaine (Lidoderm) 1 ea TD DAILY [facility] Last Admin: 11/12/17 08:34 Dose: 1 ea Lisinopril (Zestril) 20 mg PEG DAILY [facility] Last Admin: 11/12/17 09:29 Dose: 20 mg Metformin HCl (Glucophage) 500 mg PEG BIDWM [facility] Last Admin: 11/12/17 17:15 Dose: 500 mg Venlafaxine HCl (Effexor Xr) 37.5 mg PO DAILY [facility] Last Admin: 11/12/17 08:34 Dose: 37.5 mg - Labs Labs: 11/07/17 05:15 11/06/17 05:15 - Head Exam Head Exam: NORMAL INSPECTION - Eye Exam Eye Exam: Normal appearance - ENT Exam ENT Exam: Mucous Membranes Moist - Respiratory Exam Respiratory Exam: Clear to Ausculation Bilateral - Cardiovascular Exam Cardiovascular Exam: REGULAR RHYTHM Assessment and Plan (1) Hemiplegia affecting dominant side Status: Acute (2) Dysphagia Status: Acute (3) CVA (cerebral vascular accident) Status: Acute (4) Hyperglycemia Status: Acute (5) Hyperlipidemia Status: Acute (6) Hypertension Status: Acute (7) Diabetes mellitus type 2 in nonobese Status: Acute - Assessment and Plan (Free Text) Plan: Cont meds Cont PT add januvia in am. check labs
[2017-11-13] MEDS: Venlafaxine 37.5 mg ER Cap PO SCH (08:26)
[2017-11-13] MEDS: Ferrous Sulfate 300 mg/5 mL Liq UD PEG SCH ×2 (08:26→17:01)
[2017-11-13] MEDS: Lidocaine 5% Patch TD SCH (08:27)
[2017-11-13] MEDS: Proshield Plus GEL TOP SCH ×2 (09:32→21:16)
--- NOTE | 2017-11-13 14:36 | CP.PCM.PN ---
Subjective - Date & Time of Evaluation Date of Evaluation: 11/13/17 Time of Evaluation: 09:35 - Subjective Subjective: no acute complaints Objective - Vital Signs/Intake and Output Vital Signs (last 24 hours): Temp Pulse Resp BP Pulse Ox 97.1 F L 60 19 107/63 98 11/13/17 08:33 11/13/17 13:08 11/13/17 08:33 11/13/17 13:08 11/13/17 08:33 Intake and Output: 11/13/17 11/13/17 06:59 18:59 Intake Total 1040 Balance 1040 - Medications Medications: Current Medications Acetaminophen (Tylenol 325mg Tab) 650 mg PEG Q6 PRN PRN Reason: Pain, moderate (4-7) Last Admin: 11/11/17 14:48 Dose: 650 mg Albuterol Sulfate (Albuterol 0.083% Inhal Gabriella (2.5 Mg/3 Ml) Ud) 2.5 mg INH RQ6 [facility] Last Admin: 11/13/17 13:11 Dose: 2.5 mg Amlodipine Besylate (Norvasc) 5 mg PEG DAILY [facility] Last Admin: 11/13/17 08:26 Dose: 5 mg Aspirin (Aspirin Chewable) 81 mg PEG DAILY [facility] Last Admin: 11/13/17 08:26 Dose: 81 mg Atorvastatin Calcium (Lipitor) 20 mg PEG HS [facility] Last Admin: 11/12/17 22:00 Dose: 20 mg Clopidogrel Bisulfate (Plavix) 75 mg PEG DAILY [facility] Last Admin: 11/13/17 08:25 Dose: 75 mg Dimethicone (Proshield Plus Skin Protectant) 1 applic TOP Q12@1000,2200 [facility] Last Admin: 11/13/17 09:32 Dose: 1 applic Diphenoxylate HCl/Atropine (Lomotil 0.025-2.5 Mg Tablet) 1 tab PO QID PRN PRN Reason: Diarrhea Last Admin: 11/13/17 02:08 Dose: 1 tab Famotidine (Pepcid) 40 mg PEG HS [facility] Last Admin: 11/12/17 21:58 Dose: 40 mg Ferrous Sulfate (Feosol Liq) 300 mg PEG BID [facility] Last Admin: 11/13/17 08:26 Dose: 300 mg Hydralazine HCl (Apresoline) 25 mg PEG Q8 [facility] Last Admin: 11/13/17 13:08 Dose: Not Given Labetalol HCl (Trandate) 100 mg PEG Q8 [facility] Last Admin: 11/13/17 13:08 Dose: Not Given Lidocaine (Lidoderm) 1 ea TD DAILY [facility] Last Admin: 11/13/17 08:27 Dose: 1 ea Lisinopril (Zestril) 20 mg PEG DAILY [facility] Last Admin: 11/13/17 08:25 Dose: 20 mg Metformin HCl (Glucophage) 500 mg PEG BIDWM [facility] Last Admin: 11/13/17 08:26 Dose: 500 mg Sitagliptin Phosphate (Januvia) 50 mg PO DAILY [facility] Last Admin: 11/13/17 09:32 Dose: 50 mg Venlafaxine HCl (Effexor Xr) 37.5 mg PO DAILY [facility] Last Admin: 11/13/17 08:26 Dose: 37.5 mg - Labs Labs: 11/07/17 05:15 11/06/17 05:15 - Head Exam Head Exam: ATRAUMATIC, NORMAL INSPECTION, NORMOCEPHALIC - Eye Exam Eye Exam: EOMI, Normal appearance, PERRL Pupil Exam: NORMAL ACCOMODATION - ENT Exam ENT Exam: Mucous Membranes Moist, Normal Exam - Neck Exam Neck Exam: Full ROM, Normal Inspection - Respiratory Exam Respiratory Exam: NORMAL BREATHING PATTERN - Cardiovascular Exam Cardiovascular Exam: REGULAR RHYTHM - GI/Abdominal Exam GI & Abdominal Exam: Soft, Normal Bowel Sounds - Rectal Exam Rectal Exam: NORMAL INSPECTION - Exam External exam: NORMAL EXTERNAL EXAM - Extremities Exam Extremities Exam: Full ROM, Normal Capillary Refill, Normal Inspection - Back Exam Back Exam: NORMAL INSPECTION - Neurological Exam Neurological Exam: Alert, Awake Neuro motor strength exam: Left Upper Extremity: 3, Right Upper Extremity: 2/1, Left Lower Extremity: 3, Right Lower Extremity: 2/1 - Psychiatric Exam Psychiatric exam: Normal Affect, Normal Mood - Skin Skin Exam: Dry, Intact Assessment and Plan (1) Diabetes mellitus type 2 in nonobese Status: Acute (2) Dysphagia Status: Acute (3) Hemiplegia affecting dominant side Status: Acute (4) CVA (cerebral vascular accident) Assessment & Plan: covering for Dr Michelle continue with pt, ot therapy and speech Status: Acute (5) Hyperglycemia Status: Acute (6) Hyperlipidemia Status: Acute (7) Hypertension Status: Acute
[2017-11-13 15:43] LABS: BASO % 0.4 % (0.0-2.0); EOS # 0.3 K/uL (0.0-0.7); EOS % 2.3 % (0.0-4.0); HEMOGLOBIN 9.2 g/dL (12.0-16.0); LYMPH # 0.8 K/uL (1.0-4.3); LYMPH % 6.7 % (20.0-40.0); MEAN CELL VOLUME 91.7 fl (81.0-99.0); MEAN CORPUSCULAR HEMOGLOBIN 31.5 pg (27.0-31.0); MEAN CORPUSCULAR HGB CONC 34.4 g/dL (33.0-37.0); MEAN PLATELET VOLUME 8.8 fl (7.2-11.7); MONO # 0.8 K/uL (0.0-0.8); MONO % 6.3 % (0.0-10.0); NEUT # 10.3 K/uL (1.8-7.0); NEUT % 84.3 % (50.0-75.0); PLATELET COUNT 405 K/uL (130-400); RBC 2.92 Mil/uL (3.80-5.20); RED CELL DISTRIBUTION WIDTH 13.9 % (11.5-14.5); WHITE BLOOD COUNT 12.2 K/uL (4.8-10.8)
[2017-11-13 17:04] LABS: ANISOCYTOSIS SLIGHT; BANDS 1 % (0-2); BASOPHIL 1 % (0-2); EOSINOPHIL 3 % (0-7); HYPOCHROMIC SLIGHT; LYMPHOCYTE 9 % (20-50); MONOCYTE 7 % (0-10); NEUTROPHIL 79 % (42-75); OVALOCYTES SLIGHT; PLATELET ESTIMATE NORMAL (NORMAL); POIKILOCYTOSIS SLIGHT; TOTAL CELLS COUNTED 100
[2017-11-13 17:45] LABS: ALB/GLOB RATIO 0.9 (1.0-2.1); ALBUMIN 3.5 g/dL (3.5-5.0); CALCIUM 9.9 mg/dL (8.4-10.2)
[2017-11-13] MEDS: Sodium Chloride 0.9% 1,000 ML IV SCH (20:30)
[2017-11-13] MEDS: Sod Polystyrene Sulf 15 gm/60 ml Susp PO SCH (21:04)
[2017-11-14] MEDS: Albuterol 0.083% Inhal Sol (2.5 mg/3 mL) UD INH SCH ×4 (01:15→19:19)
[2017-11-14] MEDS: Sod Polystyrene Sulf 15 gm/60 ml Susp PO SCH ×3 (02:00→09:02)
[2017-11-14 07:09] LABS: ALB/GLOB RATIO 0.9 (1.0-2.1); ALBUMIN 3.2 g/dL (3.5-5.0); CALCIUM 9.5 mg/dL (8.4-10.2)
[2017-11-14] MEDS: Venlafaxine 37.5 mg ER Cap PO SCH (09:01)
[2017-11-14] MEDS: Ferrous Sulfate 300 mg/5 mL Liq UD PEG SCH ×2 (09:01→16:52)
[2017-11-14] MEDS: Lidocaine 5% Patch TD SCH (09:03)
[2017-11-14] MEDS: Proshield Plus GEL TOP SCH ×2 (09:05→21:43)
[2017-11-14] MEDS ORDERED: Barium Sulfate Susp 0.1% w/v, 0.1% w/w 450 mL Bottle PO ONE (13:07)
--- NOTE | 2017-11-14 13:59 | RAD ---
Date of service: 11/14/2017 PROCEDURE: Modified barium video swallow HISTORY: dysphagia COMPARISON: Not available TECHNIQUE: Swallowing of barium mixtures of varying viscosity was monitored fluoroscopically. Examination was performed by a member of the speech therapy department. Total time of fluoroscopy was 109.6 sec. Cumulative dose was 5.54 mGy FINDINGS: There was no aspiration or laryngeal penetration identified during any portion of the examination. Please see the full report from speech therapy. IMPRESSION: No evidence of aspiration. Please see full report from speech therapy.
[2017-11-14] MEDS: Sodium Chloride 0.9% 1,000 ML IV SCH (16:53)
--- NOTE | 2017-11-14 17:24 | CP.PCM.PN ---
Subjective - Date & Time of Evaluation Date of Evaluation: 11/14/17 Time of Evaluation: 11:00 - Subjective Subjective: no acute complaints Objective - Vital Signs/Intake and Output Vital Signs (last 24 hours): Temp Pulse Resp BP Pulse Ox 97.2 F L 72 21 159/69 H 98 11/14/17 08:40 11/14/17 16:54 11/14/17 08:40 11/14/17 16:54 11/14/17 08:45 Intake and Output: 11/14/17 11/14/17 06:59 18:59 Intake Total 1760 360 Balance 1760 360 - Medications Medications: Current Medications Acetaminophen (Tylenol 325mg Tab) 650 mg PEG Q6 PRN PRN Reason: Pain, moderate (4-7) Last Admin: 11/11/17 14:48 Dose: 650 mg Albuterol Sulfate (Albuterol 0.083% Inhal Gabriella (2.5 Mg/3 Ml) Ud) 2.5 mg INH RQ6 [facility] Last Admin: 11/14/17 14:11 Dose: 2.5 mg Amlodipine Besylate (Norvasc) 5 mg PEG DAILY [facility] Last Admin: 11/14/17 09:04 Dose: 5 mg Aspirin (Aspirin Chewable) 81 mg PEG DAILY [facility] Last Admin: 11/14/17 09:01 Dose: 81 mg Atorvastatin Calcium (Lipitor) 20 mg PEG HS [facility] Last Admin: 11/13/17 21:04 Dose: 20 mg Clopidogrel Bisulfate (Plavix) 75 mg PEG DAILY [facility] Last Admin: 11/14/17 09:05 Dose: 75 mg Dimethicone (Proshield Plus Skin Protectant) 1 applic TOP Q12@1000,2200 [facility] Last Admin: 11/14/17 09:05 Dose: 1 applic Diphenoxylate HCl/Atropine (Lomotil 0.025-2.5 Mg Tablet) 1 tab PO QID PRN PRN Reason: Diarrhea Last Admin: 11/13/17 02:08 Dose: 1 tab Famotidine (Pepcid) 40 mg PEG HS [facility] Last Admin: 11/13/17 21:05 Dose: 40 mg Ferrous Sulfate (Feosol Liq) 300 mg PEG BID [facility] Last Admin: 11/14/17 16:52 Dose: 300 mg Hydralazine HCl (Apresoline) 25 mg PEG Q8 [facility] Last Admin: 11/14/17 16:52 Dose: 25 mg Sodium Chloride (Sodium Chloride 0.9%) 1,000 mls @ 60 mls/hr IV .[id number] [facility] Stop: 11/14/17 19:33 Last Admin: 11/14/17 16:53 Dose: 60 mls/hr Labetalol HCl (Trandate) 100 mg PEG Q8 [facility] Last Admin: 11/14/17 16:54 Dose: 100 mg Lidocaine (Lidoderm) 1 ea TD DAILY [facility] Last Admin: 11/14/17 09:03 Dose: 1 ea Lisinopril (Zestril) 20 mg PEG DAILY [facility] Last Admin: 11/14/17 16:54 Dose: 20 mg Metformin HCl (Glucophage) 500 mg PEG BIDWM [facility] Last Admin: 11/14/17 16:53 Dose: 500 mg Sitagliptin Phosphate (Januvia) 50 mg PO DAILY [facility] Last Admin: 11/14/17 09:02 Dose: 50 mg Venlafaxine HCl (Effexor Xr) 37.5 mg PO DAILY [facility] Last Admin: 11/14/17 09:01 Dose: 37.5 mg - Labs Labs: 11/13/17 14:39 11/14/17 05:40 - Head Exam Head Exam: ATRAUMATIC, NORMAL INSPECTION, NORMOCEPHALIC - Eye Exam Eye Exam: EOMI, Normal appearance Pupil Exam: NORMAL ACCOMODATION, PERRL - ENT Exam ENT Exam: Mucous Membranes Moist, Normal Exam - Neck Exam Neck Exam: Full ROM, Normal Inspection - Respiratory Exam Respiratory Exam: Clear to Ausculation Bilateral, NORMAL BREATHING PATTERN - Cardiovascular Exam Cardiovascular Exam: REGULAR RHYTHM - GI/Abdominal Exam GI & Abdominal Exam: Soft, Normal Bowel Sounds - Rectal Exam Rectal Exam: NORMAL INSPECTION - Exam External exam: NORMAL EXTERNAL EXAM - Extremities Exam Extremities Exam: Normal Capillary Refill, Normal Inspection - Neurological Exam Neurological Exam: Alert, Awake - Psychiatric Exam Psychiatric exam: Normal Mood - Skin Skin Exam: Normal Color, Warm Assessment and Plan (1) Diabetes mellitus type 2 in nonobese Status: Acute (2) Dysphagia Status: Acute (3) Hemiplegia affecting dominant side Assessment & Plan: plan for physical, occupational therapy covering for Dr Michelle , status post neurology follow up Status: Acute (4) CVA (cerebral vascular accident) Status: Acute (5) Hyperglycemia Status: Acute (6) Hyperlipidemia Status: Acute (7) Hypertension Status: Acute
[2017-11-15] MEDS: Albuterol 0.083% Inhal Sol (2.5 mg/3 mL) UD INH SCH ×4 (01:43→19:41)
[2017-11-15 06:42] LABS: ALB/GLOB RATIO 0.9 (1.0-2.1); ALBUMIN 3.1 g/dL (3.5-5.0); CALCIUM 9.2 mg/dL (8.4-10.2)
[2017-11-15] MEDS: Venlafaxine 37.5 mg ER Cap PO SCH (09:00)
[2017-11-15] MEDS: Ferrous Sulfate 300 mg/5 mL Liq UD PEG SCH ×2 (09:03→18:07)
[2017-11-15] MEDS: Proshield Plus GEL TOP SCH ×2 (09:05→22:01)
--- NOTE | 2017-11-15 09:54 | CP.PCM.PN ---
Subjective - Date & Time of Evaluation Date of Evaluation: 11/14/17 Time of Evaluation: 10:00 - Subjective Subjective: patient seen and examined at bedside. no acute events overnight. discussed with nursing staff. non-verbal though able to communicate pain/good/bad. participating in PT. Objective - Vital Signs/Intake and Output Vital Signs (last 24 hours): Temp Pulse Resp BP Pulse Ox 97.0 F L 70 18 120/61 100 11/15/17 08:09 11/15/17 09:05 11/15/17 08:09 11/15/17 09:05 11/15/17 08:09 Intake and Output: 11/15/17 11/15/17 06:59 18:59 Intake Total 1140 Balance 1140 - Medications Medications: Current Medications Acetaminophen (Tylenol 325mg Tab) 650 mg PEG Q6 PRN PRN Reason: Pain, moderate (4-7) Last Admin: 11/11/17 14:48 Dose: 650 mg Albuterol Sulfate (Albuterol 0.083% Inhal Gabriella (2.5 Mg/3 Ml) Ud) 2.5 mg INH RQ6 [facility] Last Admin: 11/15/17 07:37 Dose: 2.5 mg Amlodipine Besylate (Norvasc) 5 mg PEG DAILY [facility] Last Admin: 11/15/17 09:04 Dose: 5 mg Aspirin (Aspirin Chewable) 81 mg PEG DAILY [facility] Last Admin: 11/14/17 09:01 Dose: 81 mg Atorvastatin Calcium (Lipitor) 20 mg PEG HS [facility] Last Admin: 11/14/17 21:42 Dose: 20 mg Clopidogrel Bisulfate (Plavix) 75 mg PEG DAILY [facility] Last Admin: 11/15/17 09:04 Dose: 75 mg Dimethicone (Proshield Plus Skin Protectant) 1 applic TOP Q12@1000,2200 [facility] Last Admin: 11/15/17 09:05 Dose: 1 applic Diphenoxylate HCl/Atropine (Lomotil 0.025-2.5 Mg Tablet) 1 tab PO QID PRN PRN Reason: Diarrhea Last Admin: 11/13/17 02:08 Dose: 1 tab Diphenoxylate HCl/Atropine (Lomotil 0.025-2.5 Mg Tablet) 1 tab PEG QID PRN PRN Reason: Diarrhea Famotidine (Pepcid) 40 mg PEG HS [facility] Last Admin: 11/14/17 21:42 Dose: 40 mg Ferrous Sulfate (Feosol Liq) 300 mg PEG BID [facility] Last Admin: 11/15/17 09:03 Dose: 300 mg Hydralazine HCl (Apresoline) 25 mg PEG Q8 [facility] Last Admin: 11/15/17 05:39 Dose: 25 mg Labetalol HCl (Trandate) 100 mg PEG Q8 [facility] Last Admin: 11/15/17 05:39 Dose: 100 mg Lidocaine (Lidoderm) 1 ea TD DAILY [facility] Last Admin: 11/14/17 09:03 Dose: 1 ea Lisinopril (Zestril) 20 mg PEG DAILY [facility] Last Admin: 11/15/17 09:05 Dose: 20 mg Metformin HCl (Glucophage) 500 mg PEG BIDWM [facility] Last Admin: 11/15/17 08:00 Dose: 500 mg Sitagliptin Phosphate (Januvia) 50 mg PO DAILY [facility] Last Admin: 11/15/17 09:03 Dose: 50 mg Venlafaxine HCl (Effexor Xr) 37.5 mg PO DAILY [facility] Last Admin: 11/14/17 09:01 Dose: 37.5 mg - Labs Labs: 11/13/17 14:39 11/15/17 05:25 - Constitutional Appears: Non-toxic, No Acute Distress - Head Exam Head Exam: NORMAL INSPECTION - Eye Exam Eye Exam: Normal appearance - Neck Exam Neck Exam: Normal Inspection - Respiratory Exam Respiratory Exam: Clear to Ausculation Bilateral, NORMAL BREATHING PATTERN - Cardiovascular Exam Cardiovascular Exam: RRR, +S1, +S2 - Neurological Exam Neurological Exam: Alert, Awake - Skin Skin Exam: Normal Color, Warm Assessment and Plan - Assessment and Plan (Free Text) Assessment: 66 y/o female admitted to rehab after an 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 Progressing well in rehab plan c/w meds as ordered continue with PT/OT
--- NOTE | 2017-11-15 09:55 | CP.PCM.PN ---
Subjective - Date & Time of Evaluation Date of Evaluation: 11/15/17 Time of Evaluation: 10:00 - Subjective Subjective: patient seen and examined at bedside. no acute events overnight. discussed with nursing staff. participating in PT. Objective - Vital Signs/Intake and Output Vital Signs (last 24 hours): Temp Pulse Resp BP Pulse Ox 97.0 F L 70 18 120/61 100 11/15/17 08:09 11/15/17 09:05 11/15/17 08:09 11/15/17 09:05 11/15/17 08:09 Intake and Output: 11/15/17 11/15/17 06:59 18:59 Intake Total 1140 Balance 1140 - Medications Medications: Current Medications Acetaminophen (Tylenol 325mg Tab) 650 mg PEG Q6 PRN PRN Reason: Pain, moderate (4-7) Last Admin: 11/11/17 14:48 Dose: 650 mg Albuterol Sulfate (Albuterol 0.083% Inhal Gabriella (2.5 Mg/3 Ml) Ud) 2.5 mg INH RQ6 [facility] Last Admin: 11/15/17 07:37 Dose: 2.5 mg Amlodipine Besylate (Norvasc) 5 mg PEG DAILY [facility] Last Admin: 11/15/17 09:04 Dose: 5 mg Aspirin (Aspirin Chewable) 81 mg PEG DAILY [facility] Last Admin: 11/14/17 09:01 Dose: 81 mg Atorvastatin Calcium (Lipitor) 20 mg PEG HS [facility] Last Admin: 11/14/17 21:42 Dose: 20 mg Clopidogrel Bisulfate (Plavix) 75 mg PEG DAILY [facility] Last Admin: 11/15/17 09:04 Dose: 75 mg Dimethicone (Proshield Plus Skin Protectant) 1 applic TOP Q12@1000,2200 [facility] Last Admin: 11/15/17 09:05 Dose: 1 applic Diphenoxylate HCl/Atropine (Lomotil 0.025-2.5 Mg Tablet) 1 tab PO QID PRN PRN Reason: Diarrhea Last Admin: 11/13/17 02:08 Dose: 1 tab Diphenoxylate HCl/Atropine (Lomotil 0.025-2.5 Mg Tablet) 1 tab PEG QID PRN PRN Reason: Diarrhea Famotidine (Pepcid) 40 mg PEG HS [facility] Last Admin: 11/14/17 21:42 Dose: 40 mg Ferrous Sulfate (Feosol Liq) 300 mg PEG BID [facility] Last Admin: 11/15/17 09:03 Dose: 300 mg Hydralazine HCl (Apresoline) 25 mg PEG Q8 [facility] Last Admin: 11/15/17 05:39 Dose: 25 mg Labetalol HCl (Trandate) 100 mg PEG Q8 [facility] Last Admin: 11/15/17 05:39 Dose: 100 mg Lidocaine (Lidoderm) 1 ea TD DAILY [facility] Last Admin: 11/14/17 09:03 Dose: 1 ea Lisinopril (Zestril) 20 mg PEG DAILY [facility] Last Admin: 11/15/17 09:05 Dose: 20 mg Metformin HCl (Glucophage) 500 mg PEG BIDWM [facility] Last Admin: 11/15/17 08:00 Dose: 500 mg Sitagliptin Phosphate (Januvia) 50 mg PO DAILY [facility] Last Admin: 11/15/17 09:03 Dose: 50 mg Venlafaxine HCl (Effexor Xr) 37.5 mg PO DAILY [facility] Last Admin: 11/14/17 09:01 Dose: 37.5 mg - Labs Labs: 11/13/17 14:39 11/15/17 05:25 - Additional Findings Additional findings: - Constitutional Appears: Non-toxic, No Acute Distress - Head Exam Head Exam: NORMAL INSPECTION - Eye Exam Eye Exam: Normal appearance - Neck Exam Neck Exam: Normal Inspection - Respiratory Exam Respiratory Exam: Clear to Ausculation Bilateral, NORMAL BREATHING PATTERN - Cardiovascular Exam Cardiovascular Exam: RRR, +S1, +S2 - Neurological Exam Neurological Exam: Alert, Awake - Skin Skin Exam: Normal Color, Warm Assessment and Plan - Assessment and Plan (Free Text) Assessment: 66 y/o female admitted to rehab after an 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 Progressing well in rehab plan c/w meds as ordered continue with PT/OT neuro following risk reduction
[2017-11-15] MEDS: Lidocaine 5% Patch TD SCH (10:00)
--- NOTE | 2017-11-15 17:31 | CP.PCM.PN ---
Subjective - Date & Time of Evaluation Date of Evaluation: 11/15/17 Time of Evaluation: 17:30 - Subjective Subjective: Patient seen in room stable no getting PO intake that is better tolerated limited function but making gains and working hard. continue current care Objective - Vital Signs/Intake and Output Vital Signs (last 24 hours): Temp Pulse Resp BP Pulse Ox 97.0 F L 70 18 120/60 99 11/15/17 08:09 11/15/17 13:13 11/15/17 08:09 11/15/17 13:13 11/15/17 08:40 Intake and Output: 11/15/17 11/15/17 06:59 18:59 Intake Total 1140 Balance 1140 - Medications Medications: Current Medications Acetaminophen (Tylenol 325mg Tab) 650 mg PEG Q6 PRN PRN Reason: Pain, moderate (4-7) Last Admin: 11/11/17 14:48 Dose: 650 mg Albuterol Sulfate (Albuterol 0.083% Inhal Gabriella (2.5 Mg/3 Ml) Ud) 2.5 mg INH RQ6 [facility] Last Admin: 11/15/17 13:26 Dose: 2.5 mg Amlodipine Besylate (Norvasc) 5 mg PEG DAILY [facility] Last Admin: 11/15/17 09:04 Dose: 5 mg Aspirin (Aspirin Chewable) 81 mg PEG DAILY [facility] Last Admin: 11/15/17 09:00 Dose: 81 mg Atorvastatin Calcium (Lipitor) 20 mg PEG HS [facility] Last Admin: 11/14/17 21:42 Dose: 20 mg Clopidogrel Bisulfate (Plavix) 75 mg PEG DAILY [facility] Last Admin: 11/15/17 09:04 Dose: 75 mg Dimethicone (Proshield Plus Skin Protectant) 1 applic TOP Q12@1000,2200 [facility] Last Admin: 11/15/17 09:05 Dose: 1 applic Diphenoxylate HCl/Atropine (Lomotil 0.025-2.5 Mg Tablet) 1 tab PO QID PRN PRN Reason: Diarrhea Last Admin: 11/13/17 02:08 Dose: 1 tab Diphenoxylate HCl/Atropine (Lomotil 0.025-2.5 Mg Tablet) 1 tab PEG QID PRN PRN Reason: Diarrhea Famotidine (Pepcid) 40 mg PEG HS [facility] Last Admin: 11/14/17 21:42 Dose: 40 mg Ferrous Sulfate (Feosol Liq) 300 mg PEG BID [facility] Last Admin: 11/15/17 09:03 Dose: 300 mg Hydralazine HCl (Apresoline) 25 mg PEG Q8 [facility] Last Admin: 11/15/17 13:13 Dose: 25 mg Labetalol HCl (Trandate) 100 mg PEG Q8 [facility] Last Admin: 11/15/17 13:14 Dose: 100 mg Lidocaine (Lidoderm) 1 ea TD DAILY [facility] Last Admin: 11/15/17 10:00 Dose: 1 ea Lisinopril (Zestril) 20 mg PEG DAILY [facility] Last Admin: 11/15/17 09:05 Dose: 20 mg Metformin HCl (Glucophage) 500 mg PEG BIDWM [facility] Last Admin: 11/15/17 08:00 Dose: 500 mg Sitagliptin Phosphate (Januvia) 50 mg PO DAILY [facility] Last Admin: 11/15/17 09:03 Dose: 50 mg Venlafaxine HCl (Effexor Xr) 37.5 mg PO DAILY [facility] Last Admin: 11/15/17 09:00 Dose: 37.5 mg - Labs Labs: 11/13/17 14:39 11/15/17 05:25
[2017-11-16] MEDS: Albuterol 0.083% Inhal Sol (2.5 mg/3 mL) UD INH SCH ×4 (01:06→19:23)
[2017-11-16] MEDS: Venlafaxine 37.5 mg ER Cap PO SCH (08:59)
[2017-11-16] MEDS: Proshield Plus GEL TOP SCH ×2 (08:59→22:15)
[2017-11-16] MEDS: Ferrous Sulfate 300 mg/5 mL Liq UD PEG SCH ×2 (09:00→17:54)
[2017-11-16] MEDS: Lidocaine 5% Patch TD SCH (09:00)
--- NOTE | 2017-11-16 15:53 | CP.PCM.PN ---
Subjective - Date & Time of Evaluation Date of Evaluation: 11/16/17 Time of Evaluation: 10:00 - Subjective Subjective: patient seen and examined at bedside. no acute events overnight. discussed with nursing staff. participating in PT. Objective - Vital Signs/Intake and Output Vital Signs (last 24 hours): Temp Pulse Resp BP Pulse Ox 97.3 F L 68 18 140/80 98 11/16/17 09:01 11/16/17 14:36 11/16/17 09:01 11/16/17 14:36 11/16/17 09:01 Intake and Output: 11/16/17 11/16/17 06:59 18:59 Intake Total 1040 Balance 1040 - Medications Medications: Current Medications Acetaminophen (Tylenol 325mg Tab) 650 mg PO Q6 PRN PRN Reason: pain Albuterol Sulfate (Albuterol 0.083% Inhal Gabriella (2.5 Mg/3 Ml) Ud) 2.5 mg INH RQ6 [facility] Last Admin: 11/16/17 13:57 Dose: 2.5 mg Amlodipine Besylate (Norvasc) 5 mg PEG DAILY [facility] Last Admin: 11/16/17 09:00 Dose: 5 mg Aspirin (Aspirin Chewable) 81 mg PEG DAILY [facility] Last Admin: 11/16/17 08:59 Dose: 81 mg Atorvastatin Calcium (Lipitor) 20 mg PEG HS [facility] Last Admin: 11/15/17 21:59 Dose: 20 mg Clopidogrel Bisulfate (Plavix) 75 mg PEG DAILY [facility] Last Admin: 11/16/17 08:59 Dose: 75 mg Dimethicone (Proshield Plus Skin Protectant) 1 applic TOP Q12@1000,2200 [facility] Last Admin: 11/16/17 08:59 Dose: 1 applic Diphenoxylate HCl/Atropine (Lomotil 0.025-2.5 Mg Tablet) 1 tab PO QID PRN PRN Reason: Diarrhea Last Admin: 11/13/17 02:08 Dose: 1 tab Diphenoxylate HCl/Atropine (Lomotil 0.025-2.5 Mg Tablet) 1 tab PEG QID PRN PRN Reason: Diarrhea Famotidine (Pepcid) 40 mg PEG HS [facility] Last Admin: 11/15/17 21:58 Dose: 40 mg Ferrous Sulfate (Feosol Liq) 300 mg PEG BID [facility] Last Admin: 11/16/17 09:00 Dose: 300 mg Hydralazine HCl (Apresoline) 25 mg PEG Q8 [facility] Last Admin: 11/16/17 14:36 Dose: 25 mg Labetalol HCl (Trandate) 100 mg PEG Q8 [facility] Last Admin: 11/16/17 14:35 Dose: 100 mg Lidocaine (Lidoderm) 1 ea TD DAILY [facility] Last Admin: 11/16/17 09:00 Dose: 1 ea Lisinopril (Zestril) 20 mg PEG DAILY [facility] Last Admin: 11/16/17 09:01 Dose: 20 mg Metformin HCl (Glucophage) 500 mg PEG BIDWM [facility] Last Admin: 11/16/17 08:59 Dose: 500 mg Sitagliptin Phosphate (Januvia) 50 mg PO DAILY [facility] Last Admin: 11/16/17 09:00 Dose: 50 mg Venlafaxine HCl (Effexor Xr) 37.5 mg PO DAILY [facility] Last Admin: 11/16/17 08:59 Dose: 37.5 mg - Labs Labs: 11/13/17 14:39 11/15/17 05:25 - Additional Findings Additional findings: - Constitutional Appears: Non-toxic, No Acute Distress - Head Exam Head Exam: NORMAL INSPECTION - Eye Exam Eye Exam: Normal appearance - Neck Exam Neck Exam: Normal Inspection - Respiratory Exam Respiratory Exam: Clear to Ausculation Bilateral, NORMAL BREATHING PATTERN - Cardiovascular Exam Cardiovascular Exam: RRR, +S1, +S2 - Neurological Exam Neurological Exam: Alert, Awake - Skin Skin Exam: Normal Color, Warm Assessment and Plan - Assessment and Plan (Free Text) Assessment: 66 y/o female admitted to rehab after an 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 Progressing well in rehab plan c/w meds as ordered continue with PT/OT neuro following risk reduction
[2017-11-17] MEDS: Atropine-Diphenoxylate 0.025-2.5 mg Tab PEG PRN ×2 (01:08→17:20)
[2017-11-17] MEDS: Albuterol 0.083% Inhal Sol (2.5 mg/3 mL) UD INH SCH ×4 (02:18→19:34)
[2017-11-17] MEDS: Proshield Plus GEL TOP SCH ×2 (09:19→21:03)
[2017-11-17] MEDS: Ferrous Sulfate 300 mg/5 mL Liq UD PEG SCH ×2 (09:21→17:20)
[2017-11-17] MEDS: Venlafaxine 37.5 mg ER Cap PO SCH (09:22)
[2017-11-17] MEDS: Lidocaine 5% Patch TD SCH (09:23)
[2017-11-17] MEDS: Atropine-Diphenoxylate 0.025-2.5 mg Tab PO PRN (10:26)
--- NOTE | 2017-11-17 16:09 | CP.PCM.PN ---
Subjective - Date & Time of Evaluation Date of Evaluation: 11/17/17 Time of Evaluation: 10:00 - Subjective Subjective: patient seen and examined at bedside. no acute events overnight. discussed with nursing staff. participating in PT. Objective - Vital Signs/Intake and Output Vital Signs (last 24 hours): Temp Pulse Resp BP Pulse Ox 97.7 F 68 20 131/61 98 11/17/17 10:00 11/17/17 13:16 11/17/17 10:00 11/17/17 13:16 11/17/17 10:00 Intake and Output: 11/17/17 11/17/17 06:59 18:59 Intake Total 1120 Balance 1120 - Medications Medications: Current Medications Acetaminophen (Tylenol 325mg Tab) 650 mg PO Q6 PRN PRN Reason: pain Albuterol Sulfate (Albuterol 0.083% Inhal Gabriella (2.5 Mg/3 Ml) Ud) 2.5 mg INH RQ6 [facility] Last Admin: 11/17/17 13:18 Dose: 2.5 mg Amlodipine Besylate (Norvasc) 5 mg PEG DAILY [facility] Last Admin: 11/17/17 09:22 Dose: 5 mg Aspirin (Aspirin Chewable) 81 mg PEG DAILY [facility] Last Admin: 11/17/17 09:22 Dose: 81 mg Atorvastatin Calcium (Lipitor) 20 mg PEG HS [facility] Last Admin: 11/16/17 22:15 Dose: 20 mg Clopidogrel Bisulfate (Plavix) 75 mg PEG DAILY [facility] Last Admin: 11/17/17 09:22 Dose: 75 mg Dimethicone (Proshield Plus Skin Protectant) 1 applic TOP Q12@1000,2200 [facility] Last Admin: 11/17/17 09:19 Dose: 1 applic Diphenoxylate HCl/Atropine (Lomotil 0.025-2.5 Mg Tablet) 1 tab PO QID PRN PRN Reason: Diarrhea Last Admin: 11/17/17 10:26 Dose: 1 tab Diphenoxylate HCl/Atropine (Lomotil 0.025-2.5 Mg Tablet) 1 tab PEG QID PRN PRN Reason: Diarrhea Last Admin: 11/17/17 01:08 Dose: 1 tab Famotidine (Pepcid) 40 mg PEG HS [facility] Last Admin: 11/16/17 22:15 Dose: 40 mg Ferrous Sulfate (Feosol Liq) 300 mg PEG BID [facility] Last Admin: 11/17/17 09:21 Dose: 300 mg Hydralazine HCl (Apresoline) 25 mg PEG Q8 [facility] Last Admin: 11/17/17 13:16 Dose: 25 mg Labetalol HCl (Trandate) 100 mg PEG Q8 [facility] Last Admin: 11/17/17 13:16 Dose: 100 mg Lidocaine (Lidoderm) 1 ea TD DAILY [facility] Last Admin: 11/17/17 09:23 Dose: 1 ea Lisinopril (Zestril) 20 mg PEG DAILY [facility] Last Admin: 11/17/17 09:21 Dose: 20 mg Metformin HCl (Glucophage) 500 mg PEG BIDWM [facility] Last Admin: 11/17/17 09:00 Dose: 500 mg Sitagliptin Phosphate (Januvia) 50 mg PO DAILY [facility] Last Admin: 11/17/17 09:21 Dose: 50 mg Venlafaxine HCl (Effexor Xr) 37.5 mg PO DAILY [facility] Last Admin: 11/17/17 09:22 Dose: 37.5 mg - Labs Labs: 11/13/17 14:39 18 05:25 - Additional Findings Additional findings: - Constitutional Appears: Non-toxic, No Acute Distress - Head Exam Head Exam: NORMAL INSPECTION - Eye Exam Eye Exam: Normal appearance - Neck Exam Neck Exam: Normal Inspection - Respiratory Exam Respiratory Exam: Clear to Ausculation Bilateral, NORMAL BREATHING PATTERN - Cardiovascular Exam Cardiovascular Exam: RRR, +S1, +S2 - Neurological Exam Neurological Exam: Alert, Awake - Skin Skin Exam: Normal Color, Warm Assessment and Plan - Assessment and Plan (Free Text) Assessment: 66 y/o female admitted to rehab after an 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 Progressing well in rehab plan c/w meds as ordered continue with PT/OT neuro following risk reduction strell following
--- NOTE | 2017-11-17 17:17 | CP.PCM.PN ---
Subjective - Date & Time of Evaluation Date of Evaluation: 11/17/17 Time of Evaluation: 17:16 - Subjective Subjective: Mrs. Givens was seen and examined today at bedside. There were no acute events overnight. She had no complaints. Objective - Vital Signs/Intake and Output Vital Signs (last 24 hours): Temp Pulse Resp BP Pulse Ox 97.7 F 68 20 131/61 98 11/17/17 10:00 11/17/17 13:16 11/17/17 10:00 11/17/17 13:16 11/17/17 10:00 Intake and Output: 11/17/17 11/17/17 06:59 18:59 Intake Total 1120 Balance 1120 - Medications Medications: Current Medications Acetaminophen (Tylenol 325mg Tab) 650 mg PO Q6 PRN PRN Reason: pain Albuterol Sulfate (Albuterol 0.083% Inhal Gabriella (2.5 Mg/3 Ml) Ud) 2.5 mg INH RQ6 [facility] Last Admin: 11/17/17 13:18 Dose: 2.5 mg Amlodipine Besylate (Norvasc) 5 mg PEG DAILY [facility] Last Admin: 11/17/17 09:22 Dose: 5 mg Aspirin (Aspirin Chewable) 81 mg PEG DAILY [facility] Last Admin: 11/17/17 09:22 Dose: 81 mg Atorvastatin Calcium (Lipitor) 20 mg PEG HS [facility] Last Admin: 11/16/17 22:15 Dose: 20 mg Clopidogrel Bisulfate (Plavix) 75 mg PEG DAILY [facility] Last Admin: 11/17/17 09:22 Dose: 75 mg Dimethicone (Proshield Plus Skin Protectant) 1 applic TOP Q12@1000,2200 [facility] Last Admin: 11/17/17 09:19 Dose: 1 applic Diphenoxylate HCl/Atropine (Lomotil 0.025-2.5 Mg Tablet) 1 tab PO QID PRN PRN Reason: Diarrhea Last Admin: 11/17/17 10:26 Dose: 1 tab Diphenoxylate HCl/Atropine (Lomotil 0.025-2.5 Mg Tablet) 1 tab PEG QID PRN PRN Reason: Diarrhea Last Admin: 11/17/17 01:08 Dose: 1 tab Famotidine (Pepcid) 40 mg PEG HS [facility] Last Admin: 11/16/17 22:15 Dose: 40 mg Ferrous Sulfate (Feosol Liq) 300 mg PEG BID [facility] Last Admin: 11/17/17 09:21 Dose: 300 mg Hydralazine HCl (Apresoline) 25 mg PEG Q8 [facility] Last Admin: 11/17/17 13:16 Dose: 25 mg Labetalol HCl (Trandate) 100 mg PEG Q8 [facility] Last Admin: 11/17/17 13:16 Dose: 100 mg Lidocaine (Lidoderm) 1 ea TD DAILY [facility] Last Admin: 11/17/17 09:23 Dose: 1 ea Lisinopril (Zestril) 20 mg PEG DAILY [facility] Last Admin: 11/17/17 09:21 Dose: 20 mg Metformin HCl (Glucophage) 500 mg PEG BIDWM [facility] Last Admin: 11/17/17 09:00 Dose: 500 mg Sitagliptin Phosphate (Januvia) 50 mg PO DAILY [facility] Last Admin: 11/17/17 09:21 Dose: 50 mg Venlafaxine HCl (Effexor Xr) 37.5 mg PO DAILY [facility] Last Admin: 11/17/17 09:22 Dose: 37.5 mg - Labs Labs: 11/13/17 14:39 11/15/17 05:25 - Neurological Exam Additional comments: Neurologically unchanged Assessment and Plan (1) CVA (cerebral vascular accident) Assessment & Plan: Continue current therapy and PT/OT per care plan. Continue current medications. Neurology will follow. Status: Acute
[2017-11-18] MEDS: Atropine-Diphenoxylate 0.025-2.5 mg Tab PEG PRN ×2 (00:30→04:39)
[2017-11-18] MEDS: Albuterol 0.083% Inhal Sol (2.5 mg/3 mL) UD INH SCH ×4 (01:24→19:25)
[2017-11-18] MEDS: Venlafaxine 37.5 mg ER Cap PO SCH (08:53)
[2017-11-18] MEDS: Ferrous Sulfate 300 mg/5 mL Liq UD PEG SCH ×2 (08:53→17:06)
[2017-11-18] MEDS: Lidocaine 5% Patch TD SCH (08:54)
[2017-11-18] MEDS: Proshield Plus GEL TOP SCH ×2 (09:18→21:50)
--- NOTE | 2017-11-18 11:30 | CP.PCM.PN ---
Subjective - Date & Time of Evaluation Date of Evaluation: 11/18/17 Time of Evaluation: 11:29 - Subjective Subjective: patient seen and examined at bedside. no acute events overnight. discussed with nursing staff. participating in PT. having loose bowel. Objective - Vital Signs/Intake and Output Vital Signs (last 24 hours): Temp Pulse Resp BP Pulse Ox 97.8 F 65 20 117/58 L 98 11/18/17 10:00 11/18/17 10:00 11/18/17 10:00 11/18/17 10:00 11/17/17 21:00 Intake and Output: 11/18/17 11/18/17 06:59 18:59 Intake Total 700 Balance 700 - Medications Medications: Current Medications Acetaminophen (Tylenol 325mg Tab) 650 mg PO Q6 PRN PRN Reason: pain Albuterol Sulfate (Albuterol 0.083% Inhal Gabriella (2.5 Mg/3 Ml) Ud) 2.5 mg INH RQ6 [facility] Last Admin: 11/18/17 07:20 Dose: 2.5 mg Amlodipine Besylate (Norvasc) 5 mg PEG DAILY [facility] Last Admin: 11/18/17 08:55 Dose: 5 mg Aspirin (Aspirin Chewable) 81 mg PEG DAILY [facility] Last Admin: 11/18/17 08:54 Dose: 81 mg Atorvastatin Calcium (Lipitor) 20 mg PEG HS [facility] Last Admin: 11/17/17 21:03 Dose: 20 mg Clopidogrel Bisulfate (Plavix) 75 mg PEG DAILY [facility] Last Admin: 11/18/17 08:51 Dose: 75 mg Dimethicone (Proshield Plus Skin Protectant) 1 applic TOP Q12@1000,2200 [facility] Last Admin: 11/18/17 09:18 Dose: 1 applic Diphenoxylate HCl/Atropine (Lomotil 0.025-2.5 Mg Tablet) 1 tab PEG QID PRN PRN Reason: Diarrhea Last Admin: 11/18/17 04:39 Dose: 1 tab Famotidine (Pepcid) 40 mg PEG HS [facility] Last Admin: 11/17/17 21:03 Dose: 40 mg Ferrous Sulfate (Feosol Liq) 300 mg PEG BID [facility] Last Admin: 11/18/17 08:53 Dose: 300 mg Hydralazine HCl (Apresoline) 25 mg PEG Q8 [facility] Last Admin: 11/18/17 06:43 Dose: 25 mg Labetalol HCl (Trandate) 100 mg PEG Q8 [facility] Last Admin: 11/18/17 06:43 Dose: 100 mg Lidocaine (Lidoderm) 1 ea TD DAILY [facility] Last Admin: 11/18/17 08:54 Dose: 1 ea Lisinopril (Zestril) 20 mg PEG DAILY [facility] Last Admin: 11/18/17 08:52 Dose: 20 mg Metformin HCl (Glucophage) 500 mg PEG BIDWM [facility] Last Admin: 11/18/17 08:54 Dose: 500 mg Sitagliptin Phosphate (Januvia) 50 mg PO DAILY [facility] Last Admin: 11/18/17 08:54 Dose: 50 mg Venlafaxine HCl (Effexor Xr) 37.5 mg PO DAILY [facility] Last Admin: 11/18/17 08:53 Dose: 37.5 mg - Labs Labs: 11/13/17 14:39 11/15/17 05:25 - Additional Findings Additional findings: - Constitutional Appears: Non-toxic, No Acute Distress - Head Exam Head Exam: NORMAL INSPECTION - Eye Exam Eye Exam: Normal appearance - Neck Exam Neck Exam: Normal Inspection - Respiratory Exam Respiratory Exam: Clear to Ausculation Bilateral, NORMAL BREATHING PATTERN - Cardiovascular Exam Cardiovascular Exam: RRR, +S1, +S2 - Neurological Exam Neurological Exam: Alert, Awake - Skin Skin Exam: Normal Color, Warm Assessment and Plan - Assessment and Plan (Free Text) Assessment: 66 y/o female admitted to rehab after an 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 Progressing well in rehab plan c/w meds as ordered continue with PT/OT neuro following risk reduction adjust feedings
[2017-11-19] MEDS: Albuterol 0.083% Inhal Sol (2.5 mg/3 mL) UD INH SCH ×4 (01:15→19:35)
[2017-11-19] MEDS: Lidocaine 5% Patch TD SCH (08:42)
[2017-11-19] MEDS: Ferrous Sulfate 300 mg/5 mL Liq UD PEG SCH ×2 (08:49→17:08)
[2017-11-19] MEDS: Venlafaxine 37.5 mg ER Cap PO SCH (08:49)
[2017-11-19] MEDS: Proshield Plus GEL TOP SCH ×2 (09:24→21:39)
--- NOTE | 2017-11-19 12:02 | CP.PCM.PN ---
Subjective - Date & Time of Evaluation Date of Evaluation: 11/19/17 Time of Evaluation: 10:00 - Subjective Subjective: patient seen and examined at bedside. no acute events overnight. discussed with nursing staff. participating in PT. able to stand with full assist. Objective - Vital Signs/Intake and Output Vital Signs (last 24 hours): Temp Pulse Resp BP Pulse Ox 97.9 F 71 20 134/96 H 98 11/18/17 20:00 11/19/17 06:57 11/18/17 20:00 11/19/17 08:45 11/18/17 20:00 Intake and Output: 11/19/17 11/19/17 06:59 18:59 Intake Total 1140 Balance 1140 - Medications Medications: Current Medications Acetaminophen (Tylenol 325mg Tab) 650 mg PO Q6 PRN PRN Reason: pain Albuterol Sulfate (Albuterol 0.083% Inhal Gabriella (2.5 Mg/3 Ml) Ud) 2.5 mg INH RQ6 [facility] Last Admin: 11/19/17 08:26 Dose: 2.5 mg Amlodipine Besylate (Norvasc) 5 mg PEG DAILY [facility] Last Admin: 11/19/17 08:45 Dose: 5 mg Aspirin (Aspirin Chewable) 81 mg PEG DAILY [facility] Last Admin: 11/19/17 08:46 Dose: 81 mg Atorvastatin Calcium (Lipitor) 20 mg PEG HS [facility] Last Admin: 11/18/17 21:44 Dose: 20 mg Clopidogrel Bisulfate (Plavix) 75 mg PEG DAILY [facility] Last Admin: 11/19/17 08:44 Dose: 75 mg Dimethicone (Proshield Plus Skin Protectant) 1 applic TOP Q12@1000,2200 [facility] Last Admin: 11/19/17 09:24 Dose: 1 applic Diphenoxylate HCl/Atropine (Lomotil 0.025-2.5 Mg Tablet) 1 tab PEG QID PRN PRN Reason: Diarrhea Last Admin: 11/18/17 04:39 Dose: 1 tab Famotidine (Pepcid) 40 mg PEG HS [facility] Last Admin: 11/18/17 21:44 Dose: 40 mg Ferrous Sulfate (Feosol Liq) 300 mg PEG BID [facility] Last Admin: 11/19/17 08:49 Dose: 300 mg Hydralazine HCl (Apresoline) 25 mg PEG Q8 [facility] Last Admin: 11/19/17 06:57 Dose: 25 mg Labetalol HCl (Trandate) 100 mg PEG Q8 [facility] Last Admin: 11/19/17 06:56 Dose: 100 mg Lidocaine (Lidoderm) 1 ea TD DAILY [facility] Last Admin: 11/19/17 08:42 Dose: 1 ea Lisinopril (Zestril) 20 mg PEG DAILY [facility] Last Admin: 11/19/17 08:45 Dose: 20 mg Metformin HCl (Glucophage) 500 mg PEG BIDWM [facility] Last Admin: 11/19/17 08:43 Dose: 500 mg Sitagliptin Phosphate (Januvia) 50 mg PO DAILY [facility] Last Admin: 11/19/17 08:42 Dose: 50 mg Venlafaxine HCl (Effexor Xr) 37.5 mg PO DAILY [facility] Last Admin: 11/19/17 08:49 Dose: 37.5 mg - Labs Labs: 11/13/17 14:39 11/15/17 05:25 - Additional Findings Additional findings: - Constitutional Appears: Non-toxic, No Acute Distress - Head Exam Head Exam: NORMAL INSPECTION - Eye Exam Eye Exam: Normal appearance - Neck Exam Neck Exam: Normal Inspection - Respiratory Exam Respiratory Exam: Clear to Ausculation Bilateral, NORMAL BREATHING PATTERN - Cardiovascular Exam Cardiovascular Exam: RRR, +S1, +S2 - Neurological Exam Neurological Exam: Alert, Awake - Skin Skin Exam: Normal Color, Warm Assessment and Plan - Assessment and Plan (Free Text) Assessment: 66 y/o female admitted to rehab after an 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 Progressing well in rehab. plan c/w meds as ordered continue with PT/OT neuro following risk reduction
--- NOTE | 2017-11-19 18:25 | PSY.TMCNF ---
Nursing - Vital Signs Vital Signs (Last 8 hours): Vital Signs 11/19/17 14:00 Blood Pressure 151/64 H Pain: 0 - Precautions: Precautions: Fall Prevention, Aspiration, Pressure Ulcer - Medications/Other Issues Comment: FEEDING CHANGED TO JEVITY 1.2, FREQUENT LBM'S STOPPED. ON PLEASURE FEEDING, ONLY TAKES ABOUT 5-8 TSP OF FOOD AND 5-7 TSP OF LIQUID. - Consults Comment: Dr Michelle,Dr Cage - Skin Incision Line Treatment: (+) MASD ON PERINEAL AREA, LEFT BUTTOCK EXCORIATED. - Wound Upper Medial Thigh Wound Type: Moisture Associated Skin Damage Wound Stage: STAGE II Wound Shape: Irregular Wound Bed Greatest Portion: Red (Granulation) Wound Bed Lesser Portion: Red (Granulation) Periwound: Reddened Wound General Appearance: Open to air, Reddened Wound Dressing Status: Open to air Left Buttock Wound Type: Moisture Associated Skin Damage Wound Stage: STAGE II Wound Shape: Irregular Tunneling: No Undermining: No Wound Bed Greatest Portion: Red (Granulation) Wound Bed Lesser Portion: Pale Astor Periwound: Reddened Wound Drainage Amount: None Wound General Appearance: Open to air Wound Dressing Status: Open to air Dressing Changed: No - Toileting Toileting: Dependent - Bladder Management Bladder Pattern: Incontinent Voiding Method: Diaper Bladder Management: Dependent Frequency of Accidents: >5 - Bowel Management Bowel Pattern: Incontinent Bowel Management: Dependent Frequency of Accidents: >5 - Transfers Transfers: Dependent - ADL's ADL's: Dependent - Pain Management Comments: tylenol for pain in the peg site prn - Patient/Family Teaching Comments: aspiration precaution ,pressure ulcer prevention safety fall precaution post cva.oral care - Goals/Time Frame Comments: as per multitidiciplinary paln of care - Provider Provider: PATRICIA LYN RN CRRN Physical Therapy - Bed Mobility Bed Mobility: Maximum Assistance - Transfers Wheelchair to Mat: Maximum Assistance Sit to Stand: Moderate Assistance - Ambulation Level of Assistance: Not Tested - Stair Negotiation Stairs: Level of Assistance: Not Tested - Standing Balance Static Stand: Moderate Assistance Dynamic Stand: Maximal Assistance - Pain Comment: PEG insertion site - Insight/Carryover Insight/Carryover: Fair - Patient/Family Education Comment: CVA recovery, safety, POC - Assessment/Plan Assessment: Pt continues to be agreeable to participate in recreation therapy sessions throughout her stay on unit. Pt participates in modified card tasks such as go-fish, rick, and participates in dominoes. Pt does well with dominoes task and requires min A-CGA for setup. Pt demonstrates improved carryover of task rules, direction following, and command following. Visual deficits and fatigue are barriers to participation although has demonstrated improved postural and head control from prior team conference. Will continue to encourage pt to participate in recreation therapy sessions. - Goals Timeframe: 3 weeks Goals: Grooming: S. UE dressing: Min A. Toileting: mod a - Provider License Number: [id number] Occupational Therapy - Arousal/Attention/Orientation Patient Orientation: Person, Place, Time, Appropriate to Age, Appropriate to Situation - ADL/IADL Grooming: Moderate Assistance Bathing-Upper Extremity: Maximum Assistance Bathing-Lower Extremity: Maximum Assistance Dressing-Upper Extremity: Maximum Assistance Dressing-Lower Extremity: Maximum Assistance - Sitting Balance Static Sitting: Moderate Assistance Dynamic Sitting: Moderate Assistance - Transfers Wheelchair to Bed Transfers: Maximum Assistance Toilet Transfers: Maximum Assistance - Wheelchair Management Level of Assistance: Maximum Assistance - Upper Extremity Status Right Upper Extremity Comment: 03/01 Left Upper Extremity Comment: WFL - Pain Comment: PEG insertion site - Insight/Carryover Insight/Carryover: Fair - Patient/Family Education Comment: CVA recovery, safety, POC - Assessment/Plan Assessment: Pt continues to be agreeable to participate in recreation therapy sessions throughout her stay on unit. Pt participates in modified card tasks such as go-fish, rick, and participates in dominoes. Pt does well with dominoes task and requires min A-CGA for setup. Pt demonstrates improved carryover of task rules, direction following, and command following. Visual deficits and fatigue are barriers to participation although has demonstrated improved postural and head control from prior team conference. Will continue to encourage pt to participate in recreation therapy sessions. - Goals Timeframe: 3 weeks Goals: Grooming: S. UE dressing: Min A. Toileting: mod a - Provider Therapist: Johanna Lazo MS, OTR/L Speech Therapy - Consult Information Patient on Program: Yes Medical Diagnosis: CVA Treatment Diagnosis: -mod-severe oral dysphagia, mild pharyngeal dysphagia. - severe dysarthria/apraxia of speech - Assessment Speech/Articulation Impairment: Severe Dysphagia/Swallowing Impairment: Severe Comment: mod-severe; pleasure feeds of puree/honey have been initiated - Plan Assessment: Pt continues to be agreeable to participate in recreation therapy sessions throughout her stay on unit. Pt participates in modified card tasks such as go-fish, rick, and participates in dominoes. Pt does well with dominoes task and requires min A-CGA for setup. Pt demonstrates improved carryover of task rules, direction following, and command following. Visual deficits and fatigue are barriers to participation although has demonstrated improved postural and head control from prior team conference. Will continue to encourage pt to participate in recreation therapy sessions. Plan: Continue Dysphagia Therapy, Continue Speech/Language Therapy - Provider Therapist: Latha Medina License Number: [id number] Recreational Therapy - Participation Participation: Participates in Individual and/or Group Sessions - Attendance Attendance: 3-5 times per week - Activities Leisure Activities: Cards and Games - Socialization Level of Socialization: Requires 1:1 guidance to respond, Minimal initiation of interaction to request basic needs, Minimal or no response, Socialization severely limited - Diversional Time Diversional Time: listening to music, television, dominoes, cards - Assessment Assessment/Plan: Pt continues to be agreeable to participate in recreation therapy sessions throughout her stay on unit. Pt participates in modified card tasks such as go-fish, rick, and participates in dominoes. Pt does well with dominoes task and requires min A-CGA for setup. Pt demonstrates improved carryover of task rules, direction following, and command following. Visual deficits and fatigue are barriers to participation although has demonstrated improved postural and head control from prior team conference. Will continue to encourage pt to participate in recreation therapy sessions. Problems Currently Limiting Participation: severe speech deficits, swallowing deficits, decrease leisure awareness level, limited social support, decrease activity tolerance level, R side weakness. Goals and Time Frame: Pt will be encouraged to participate in 1:1 and group recreation therapy sessions to improve attention to task, postural control in wheelchair, turn taking and initiation, arousal level, and command following level. - Provider Therapist: Brittany Griffith, TANK OFFICER #[id number] Nutrition - Current Diet Current Diet/ Supplement/ Feedings: pureed honey thick liquids moderate consist ent CHO pleasure feed by teaspoon Glucerna 1.2 @ 70 mL/hr x20 hours with 150 mL free water every 8 hours- - Appetite Percent Meal Consumed: 25-49% - Comments Comments: aspiration precaution ,pressure ulcer prevention safety fall precaution post cva.oral care - Assessment/Goals/Time Frame Assessment/Goals/Time Frame: FEEDING CHANGED TO JEVITY 1.2, FREQUENT LBM'S STOPPED. ON PLEASURE FEEDING, ONLY TAKES ABOUT 5-8 TSP OF FOOD AND 5-7 TSP OF LIQUID. - Provider Provider: Marilyn Casillas RD Case Management - Psychosocial Assessment Support Systems: Supportive friends : Ghazala/Luis (friends)- [phone]. Christiano Juarez (aunt)- [phone] who lives in [place] Psychological Interventions/Needs: Patient is alert with expressive aphasia, patient is able to nod "yes" and "no" appropriately.Prior to admission Patient was living alone in an apartment building with elevator access [employer]. Per patient's friend Ghazala, patient was completely independent [employer] although she had some premorbid L sided weakness from previous CVA. Patient was using [facility] occasionally for community negotiation. Discharge Concerns: Limited Support at home, +PEG feeding, max A for all functional mobility Patient/Family Meeting: CM and Rehab team met with patient at [facility] and discusssed progress,goal attainment and discharge plan/authoriztion from [employer]. Gate Clerk called and spoke to friend Ghazala and updated in regadrs to staus and plan. Ghazala stated she would try to come to visit over the next few days. Intervention/Goal/Outcome:: Goal: Minimal assist overall. Tentative Discharge Date: 11/29/2017. LAD 11/22/17 updates to be faxed at that time. CM to initiate [facility] referrals - Discharge Plan Discharge Plan: Subacute care - Provider Provider: ULYSSES Manriquez, CHIEF CLIENT OFFICER License Number: [id number] Rehabilitation Plan - Treatment Plan Treatment Plan: Physical Therapy, Occupational Therapy, Speech, Dietary, Patient/Family Education - Discharge Plan Estimated Date of Discharge: 11/29/17 Discharge to: Subacute
--- NOTE | 2017-11-19 18:31 | CP.PCM.PN ---
Subjective - Date & Time of Evaluation Date of Evaluation: 11/19/17 Time of Evaluation: 18:30 - Subjective Subjective: Patient seen in the room and has a visitor continues to improve and has even stood up to attempt ambulation. Not large FIM changes but clear and obvious improvements that will be setting an important foundation for a longer course of therapies that will hopefully bear fruit for Marilyn and allow for continued important progress Objective - Vital Signs/Intake and Output Vital Signs (last 24 hours): Temp Pulse Resp BP Pulse Ox 97.4 F L 65 18 151/64 H 96 11/19/17 10:00 11/19/17 10:00 11/19/17 10:00 11/19/17 14:00 11/19/17 10:00 Intake and Output: 11/19/17 11/19/17 06:59 18:59 Intake Total 1140 986 Balance 1140 986 - Medications Medications: Current Medications Acetaminophen (Tylenol 325mg Tab) 650 mg PO Q6 PRN PRN Reason: pain Albuterol Sulfate (Albuterol 0.083% Inhal Gabriella (2.5 Mg/3 Ml) Ud) 2.5 mg INH RQ6 [facility] Last Admin: 11/19/17 08:26 Dose: 2.5 mg Amlodipine Besylate (Norvasc) 5 mg PEG DAILY [facility] Last Admin: 11/19/17 08:45 Dose: 5 mg Aspirin (Aspirin Chewable) 81 mg PEG DAILY [facility] Last Admin: 11/19/17 08:46 Dose: 81 mg Atorvastatin Calcium (Lipitor) 20 mg PEG HS [facility] Last Admin: 11/18/17 21:44 Dose: 20 mg Clopidogrel Bisulfate (Plavix) 75 mg PEG DAILY [facility] Last Admin: 11/19/17 08:44 Dose: 75 mg Dimethicone (Proshield Plus Skin Protectant) 1 applic TOP Q12@1000,2200 [facility] Last Admin: 11/19/17 09:24 Dose: 1 applic Diphenoxylate HCl/Atropine (Lomotil 0.025-2.5 Mg Tablet) 1 tab PEG QID PRN PRN Reason: Diarrhea Last Admin: 11/18/17 04:39 Dose: 1 tab Famotidine (Pepcid) 40 mg PEG HS [facility] Last Admin: 11/18/17 21:44 Dose: 40 mg Ferrous Sulfate (Feosol Liq) 300 mg PEG BID [facility] Last Admin: 11/19/17 17:08 Dose: 300 mg Hydralazine HCl (Apresoline) 25 mg PEG Q8 [facility] Last Admin: 11/19/17 14:00 Dose: 25 mg Labetalol HCl (Trandate) 100 mg PEG Q8 [facility] Last Admin: 11/19/17 14:00 Dose: 100 mg Lidocaine (Lidoderm) 1 ea TD DAILY [facility] Last Admin: 11/19/17 08:42 Dose: 1 ea Lisinopril (Zestril) 20 mg PEG DAILY [facility] Last Admin: 11/19/17 08:45 Dose: 20 mg Metformin HCl (Glucophage) 500 mg PEG BIDWM [facility] Last Admin: 11/19/17 17:08 Dose: 500 mg Sitagliptin Phosphate (Januvia) 50 mg PO DAILY [facility] Last Admin: 11/19/17 08:42 Dose: 50 mg Venlafaxine HCl (Effexor Xr) 37.5 mg PO DAILY [facility] Last Admin: 11/19/17 08:49 Dose: 37.5 mg - Labs Labs: 11/13/17 14:39 11/15/17 05:25
[2017-11-20] MEDS: Albuterol 0.083% Inhal Sol (2.5 mg/3 mL) UD INH SCH ×4 (02:30→19:09)
[2017-11-20] MEDS: Atropine-Diphenoxylate 0.025-2.5 mg Tab PEG PRN (02:32)
--- NOTE | 2017-11-20 07:19 | CP.PCM.CON ---
History of Present Illness - History of Present Illness History of Present Illness: Podiatry consult note for Dr. Win 66 y/o female patient with PMHx of CVA was seen and evaluated at bedside for elongated toenails. Patient was sitting in wheelchair at bedside. Unable to obtain history from patient. No acute events as per nursing. Review of Systems - Review of Systems All systems: reviewed and no additional remarkable complaints except Review of Systems: As per HPI Past Patient History - Past Medical History & Family History Past Medical History?: Yes - Past Social History Smoking Status: Never Smoked Alcohol: None Drugs: Denies Home Situation {Lives}: Alone - CARDIAC Hx Hypercholesterolemia: Yes Hx Hypertension: Yes - PULMONARY Hx Respiratory Disorders: No - NEUROLOGICAL HX Cerebrovascular Accident: Yes - HEENT Hx HEENT Problems: No Hx Difficulty Chewing: Yes (loose dentures) - RENAL Hx Chronic Kidney Disease: No - ENDOCRINE/METABOLIC Hx Diabetes Mellitus Type 2: Yes - HEMATOLOGICAL/ONCOLOGICAL Hx AIDS: No Hx Human Immunodeficiency Virus (HIV): No - INTEGUMENTARY Hx Dermatological Problems: No - MUSCULOSKELETAL/RHEUMATOLOGICAL Hx Falls: Yes - GASTROINTESTINAL Hx Gastrointestinal Disorders: No - GENITOURINARY/GYNECOLOGICAL Hx Genitourinary Disorders: No - PSYCHIATRIC Hx Substance Use: No - SURGICAL HISTORY Hx Surgeries: No - ANESTHESIA Hx Anesthesia: No Meds Allergies/Adverse Reactions: Allergies Allergy/AdvReac Type Severity Reaction Status Date / Time No Known Allergies Allergy Verified 10/25/17 11:35 - Medications Medications: Current Medications Acetaminophen (Tylenol 325mg Tab) 650 mg PO Q6 PRN PRN Reason: pain Albuterol Sulfate (Albuterol 0.083% Inhal Gabriella (2.5 Mg/3 Ml) Ud) 2.5 mg INH RQ6 [facility] Last Admin: 11/20/17 02:30 Dose: 2.5 mg Amlodipine Besylate (Norvasc) 5 mg PEG DAILY [facility] Last Admin: 11/19/17 08:45 Dose: 5 mg Aspirin (Aspirin Chewable) 81 mg PEG DAILY [facility] Last Admin: 11/19/17 08:46 Dose: 81 mg Atorvastatin Calcium (Lipitor) 20 mg PEG HS [facility] Last Admin: 11/19/17 21:43 Dose: 20 mg Clopidogrel Bisulfate (Plavix) 75 mg PEG DAILY [facility] Last Admin: 11/19/17 08:44 Dose: 75 mg Dimethicone (Proshield Plus Skin Protectant) 1 applic TOP Q12@1000,2200 [facility] Last Admin: 11/19/17 21:39 Dose: 1 applic Diphenoxylate HCl/Atropine (Lomotil 0.025-2.5 Mg Tablet) 1 tab PEG QID PRN PRN Reason: Diarrhea Last Admin: 11/20/17 02:32 Dose: 1 tab Famotidine (Pepcid) 40 mg PEG HS [facility] Last Admin: 11/19/17 21:42 Dose: 40 mg Ferrous Sulfate (Feosol Liq) 300 mg PEG BID [facility] Last Admin: 11/19/17 17:08 Dose: 300 mg Hydralazine HCl (Apresoline) 25 mg PEG Q8 [facility] Last Admin: 11/20/17 06:40 Dose: 25 mg Labetalol HCl (Trandate) 100 mg PEG Q8 [facility] Last Admin: 11/20/17 06:41 Dose: 100 mg Lidocaine (Lidoderm) 1 ea TD DAILY [facility] Last Admin: 11/19/17 08:42 Dose: 1 ea Lisinopril (Zestril) 20 mg PEG DAILY [facility] Last Admin: 11/19/17 08:45 Dose: 20 mg Metformin HCl (Glucophage) 500 mg PEG BIDWM [facility] Last Admin: 11/19/17 17:08 Dose: 500 mg Sitagliptin Phosphate (Januvia) 50 mg PO DAILY [facility] Last Admin: 11/19/17 08:42 Dose: 50 mg Venlafaxine HCl (Effexor Xr) 37.5 mg PO DAILY [facility] Last Admin: 11/19/17 08:49 Dose: 37.5 mg Physical Exam - Constitutional Appears: Well, Non-toxic, No Acute Distress - Head Exam Head Exam: ATRAUMATIC, NORMOCEPHALIC - Extremities Exam Additional comments: VASC: DP and PT 2/4 bilaterally, CFT less than 3 seconds X 10, TG warm to cool NEURO: unable to assess DERM: elongated toenails X 10, no dystrophy, no IDM, no open lesions ORTHO: unable to assess - Psychiatric Exam Psychiatric exam: Normal Affect Results - Vital Signs Recent Vital Signs: Last Vital Signs Temp 97.9 F 11/19/17 21:00 Pulse 70 11/20/17 06:40 Resp 20 11/19/17 21:00 BP 147/74 11/20/17 06:40 Pulse Ox 96 11/19/17 21:00 - Labs Result Diagrams: 11/13/17 14:39 11/15/17 05:25 Labs: Laboratory Results - last 24 hr 11/19/17 11/20/17 15:50 05:47 POC Glucose (mg/dL) 140 H 196 H Assessment & Plan - Assessment and Plan (Free Text) Assessment: 66 y/o female patient with PMHx of CVA was seen and evaluated at bedside for elongated toenails Plan: Patient seen and evaluated at bedside Plan discussed with Dr. Win Chart, Labs and vitals reviewed- afebrile, absent leukocytosis Aseptic debridement of toenails X 10 Patient tolerated well Thank you for the podiatry consult - Date & Time Date: 11/20/17 Time: 07:20
[2017-11-20] MEDS: Ferrous Sulfate 300 mg/5 mL Liq UD PEG SCH ×2 (08:34→17:08)
[2017-11-20] MEDS: Venlafaxine 37.5 mg ER Cap PO SCH (08:37)
[2017-11-20] MEDS: Lidocaine 5% Patch TD SCH (08:38)
[2017-11-20] MEDS: Proshield Plus GEL TOP SCH ×2 (10:00→21:40)
--- NOTE | 2017-11-20 19:48 | CP.PCM.PN ---
Subjective - Date & Time of Evaluation Date of Evaluation: 11/20/17 Time of Evaluation: 19:47 - Subjective Subjective: Patient seen in the room denies sob/cp getting PEG feeds continues to benefit from therapies. Has some return in the right arm as well continue current care Objective - Vital Signs/Intake and Output Vital Signs (last 24 hours): Temp Pulse Resp BP Pulse Ox 97.0 F L 65 19 133/59 L 99 11/20/17 08:23 11/20/17 13:01 11/20/17 08:23 11/20/17 13:01 11/20/17 08:38 Intake and Output: 11/20/17 11/21/17 18:59 06:59 Intake Total 628 Balance 628 - Medications Medications: Current Medications Acetaminophen (Tylenol 325mg Tab) 650 mg PO Q6 PRN PRN Reason: pain Albuterol Sulfate (Albuterol 0.083% Inhal Gabriella (2.5 Mg/3 Ml) Ud) 2.5 mg INH RQ6 [facility] Last Admin: 11/20/17 19:09 Dose: 2.5 mg Amlodipine Besylate (Norvasc) 5 mg PEG DAILY [facility] Last Admin: 11/20/17 08:37 Dose: 5 mg Aspirin (Aspirin Chewable) 81 mg PEG DAILY [facility] Last Admin: 11/20/17 08:38 Dose: 81 mg Atorvastatin Calcium (Lipitor) 20 mg PEG HS [facility] Last Admin: 11/19/17 21:43 Dose: 20 mg Clopidogrel Bisulfate (Plavix) 75 mg PEG DAILY [facility] Last Admin: 11/20/17 08:37 Dose: 75 mg Dimethicone (Proshield Plus Skin Protectant) 1 applic TOP Q12@1000,2200 [facility] Last Admin: 11/20/17 10:00 Dose: 1 applic Diphenoxylate HCl/Atropine (Lomotil 0.025-2.5 Mg Tablet) 1 tab PEG QID PRN PRN Reason: Diarrhea Last Admin: 11/20/17 02:32 Dose: 1 tab Famotidine (Pepcid) 40 mg PEG HS [facility] Last Admin: 11/19/17 21:42 Dose: 40 mg Ferrous Sulfate (Feosol Liq) 300 mg PEG BID [facility] Last Admin: 11/20/17 17:08 Dose: 300 mg Hydralazine HCl (Apresoline) 25 mg PEG Q8 [facility] Last Admin: 11/20/17 13:01 Dose: 25 mg Labetalol HCl (Trandate) 100 mg PEG Q8 [facility] Last Admin: 11/20/17 13:01 Dose: 100 mg Lidocaine (Lidoderm) 1 ea TD DAILY [facility] Last Admin: 11/20/17 08:38 Dose: 1 ea Lisinopril (Zestril) 20 mg PEG DAILY [facility] Last Admin: 11/20/17 08:38 Dose: 20 mg Metformin HCl (Glucophage) 500 mg PEG BIDWM [facility] Last Admin: 11/20/17 17:08 Dose: 500 mg Sitagliptin Phosphate (Januvia) 50 mg PO DAILY [facility] Last Admin: 11/20/17 08:37 Dose: 50 mg Venlafaxine HCl (Effexor Xr) 37.5 mg PO DAILY [facility] Last Admin: 11/20/17 08:37 Dose: 37.5 mg - Labs Labs: 11/13/17 14:39 11/15/17 05:25
[2017-11-21] MEDS: Albuterol 0.083% Inhal Sol (2.5 mg/3 mL) UD INH SCH ×4 (02:28→19:15)
[2017-11-21] MEDS: Ferrous Sulfate 300 mg/5 mL Liq UD PEG SCH ×2 (08:36→16:58)
[2017-11-21] MEDS: Lidocaine 5% Patch TD SCH (08:39)
[2017-11-21] MEDS: Venlafaxine 37.5 mg ER Cap PO SCH (08:40)
[2017-11-21] MEDS: Proshield Plus GEL TOP SCH ×2 (09:08→21:59)
[2017-11-22] MEDS: Albuterol 0.083% Inhal Sol (2.5 mg/3 mL) UD INH SCH ×4 (01:27→19:12)
[2017-11-22] MEDS: Atropine-Diphenoxylate 0.025-2.5 mg Tab PEG PRN ×2 (02:02→09:41)
[2017-11-22] MEDS: Venlafaxine 37.5 mg ER Cap PO SCH (08:50)
[2017-11-22] MEDS: Ferrous Sulfate 300 mg/5 mL Liq UD PEG SCH ×2 (08:50→17:40)
[2017-11-22] MEDS: Lidocaine 5% Patch TD SCH (09:00)
[2017-11-22] MEDS: Proshield Plus GEL TOP SCH ×2 (13:09→21:55)
--- NOTE | 2017-11-22 16:20 | CP.PCM.PN ---
Addendum entered and electronically signed by Cecilia Alvarado MD 11/22/17 16:22: Discussed case with Dr. Ran Alvarado, PGY2 Original Note: Subjective - Date & Time of Evaluation Date of Evaluation: 11/22/17 Time of Evaluation: 08:00 - Subjective Subjective: Seen and evaluated in the am with Dr. Tong. No complaints. Participating with Physical Therapy. Objective - Vital Signs/Intake and Output Vital Signs (last 24 hours): Temp Pulse Resp BP Pulse Ox 98 F 74 20 130/80 98 11/22/17 08:43 11/22/17 08:52 11/22/17 08:43 11/22/17 08:51 11/22/17 08:43 Intake and Output: 11/22/17 11/22/17 06:59 18:59 Intake Total 1268 Balance 1268 - Medications Medications: Current Medications Acetaminophen (Tylenol 325mg Tab) 650 mg PO Q6 PRN PRN Reason: pain Albuterol Sulfate (Albuterol 0.083% Inhal Gabriella (2.5 Mg/3 Ml) Ud) 2.5 mg INH RQ6 [facility] Last Admin: 11/22/17 13:19 Dose: Not Given Amlodipine Besylate (Norvasc) 5 mg PEG DAILY [facility] Last Admin: 11/22/17 08:51 Dose: 5 mg Aspirin (Aspirin Chewable) 81 mg PEG DAILY [facility] Last Admin: 11/22/17 08:50 Dose: 81 mg Atorvastatin Calcium (Lipitor) 20 mg PEG HS [facility] Last Admin: 11/21/17 21:57 Dose: 20 mg Clopidogrel Bisulfate (Plavix) 75 mg PEG DAILY [facility] Last Admin: 11/22/17 08:51 Dose: 75 mg Dimethicone (Proshield Plus Skin Protectant) 1 applic TOP Q12@1000,2200 [facility] Last Admin: 11/22/17 13:09 Dose: 1 applic Diphenoxylate HCl/Atropine (Lomotil 0.025-2.5 Mg Tablet) 1 tab PEG QID PRN PRN Reason: Diarrhea Last Admin: 11/22/17 09:41 Dose: 1 tab Famotidine (Pepcid) 40 mg PEG HS [facility] Last Admin: 11/21/17 21:57 Dose: 40 mg Ferrous Sulfate (Feosol Liq) 300 mg PEG BID [facility] Last Admin: 11/22/17 08:50 Dose: 300 mg Hydralazine HCl (Apresoline) 25 mg PEG Q8 [facility] Last Admin: 11/22/17 05:43 Dose: 25 mg Labetalol HCl (Trandate) 100 mg PEG Q8 [facility] Last Admin: 11/22/17 13:10 Dose: 100 mg Lidocaine (Lidoderm) 1 ea TD DAILY [facility] Last Admin: 11/21/17 08:39 Dose: 1 ea Lisinopril (Zestril) 20 mg PEG DAILY [facility] Last Admin: 11/22/17 08:50 Dose: 20 mg Metformin HCl (Glucophage) 500 mg PEG BIDWM [facility] Last Admin: 11/22/17 08:50 Dose: 500 mg Sitagliptin Phosphate (Januvia) 50 mg PO DAILY [facility] Last Admin: 11/22/17 08:50 Dose: 50 mg Venlafaxine HCl (Effexor Xr) 37.5 mg PO DAILY [facility] Last Admin: 11/22/17 08:50 Dose: 37.5 mg - Labs Labs: 11/13/17 14:39 11/15/17 05:25 - Constitutional Appears: No Acute Distress - Head Exam Head Exam: NORMAL INSPECTION - Eye Exam Eye Exam: Normal appearance - ENT Exam ENT Exam: Mucous Membranes Moist - Neck Exam Neck Exam: Full ROM - Respiratory Exam Respiratory Exam: Clear to Ausculation Bilateral - Cardiovascular Exam Cardiovascular Exam: REGULAR RHYTHM - GI/Abdominal Exam GI & Abdominal Exam: Soft, Normal Bowel Sounds. absent: Tenderness - Extremities Exam Extremities Exam: absent: Pedal Edema - Neurological Exam Neurological Exam: Alert, Oriented x3 - Psychiatric Exam Psychiatric exam: Normal Affect - Skin Skin Exam: Normal Color Assessment and Plan - Assessment and Plan (Free Text) Assessment: 66 y/o female admitted to rehab after an 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 Progressing well in rehab. plan c/w meds as ordered continue with PT/OT neuro following risk reduction
[2017-11-23] MEDS: Albuterol 0.083% Inhal Sol (2.5 mg/3 mL) UD INH SCH ×4 (01:46→19:53)
[2017-11-23] MEDS: Ferrous Sulfate 300 mg/5 mL Liq UD PEG SCH ×2 (08:38→17:03)
[2017-11-23] MEDS: Venlafaxine 37.5 mg ER Cap PO SCH (08:38)
[2017-11-23] MEDS: Lidocaine 5% Patch TD SCH (08:39)
[2017-11-23] MEDS: Proshield Plus GEL TOP SCH ×2 (09:23→21:15)
--- NOTE | 2017-11-23 15:29 | PN ---
DATE: 11/23/2017 SUBJECTIVE: The patient seen and examined. The patient seen for Dr. Tong while he is away. The patient remains in acute rehab unit. The patient feels okay. Denies any specific complaint. No chest pain. No shortness of breath. PHYSICAL EXAMINATION: GENERAL: The patient is in no acute distress. VITAL SIGNS: Stable. HEART: S1 and S2, normal and regular. LUNGS: Good bilateral air exchange. ABDOMEN: Soft and nontender. EXTREMITIES: No edema. No calf swelling. No tenderness. No acute ischemia. CULINARY ART TEACHER: Exam is essentially unchanged. DIAGNOSTIC DATA: Available diagnostic data reviewed. ASSESSMENT AND PLAN: Overall, the patient's general medical condition is stable, receiving acute rehab, hence will improve. Plan as ordered. Kobi Laura MD
[2017-11-24] MEDS: Albuterol 0.083% Inhal Sol (2.5 mg/3 mL) UD INH SCH ×4 (01:47→19:14)
[2017-11-24 07:32] LABS: HEMOGLOBIN 7.5 g/dL (12.0-16.0); MEAN CELL VOLUME 92.2 fl (81.0-99.0); MEAN CORPUSCULAR HEMOGLOBIN 31.6 pg (27.0-31.0); MEAN CORPUSCULAR HGB CONC 34.3 g/dL (33.0-37.0); RBC 2.37 Mil/uL (3.80-5.20); RED CELL DISTRIBUTION WIDTH 13.5 % (11.5-14.5); WHITE BLOOD COUNT 7.6 K/uL (4.8-10.8)
[2017-11-24 07:42] LABS: ALB/GLOB RATIO 0.9 (1.0-2.1); ALBUMIN 3.3 g/dL (3.5-5.0); CALCIUM 8.7 mg/dL (8.4-10.2)
[2017-11-24] MEDS: Venlafaxine 37.5 mg ER Cap PO SCH (08:41)
[2017-11-24] MEDS: Ferrous Sulfate 300 mg/5 mL Liq UD PEG SCH ×2 (08:41→16:11)
[2017-11-24] MEDS: Lidocaine 5% Patch TD SCH (08:55)
[2017-11-24] MEDS: Proshield Plus GEL TOP SCH ×2 (09:01→21:18)
[2017-11-24] MEDS ORDERED: Epoetin Alfa 40000 UNIT/ml Inj SC ONE (11:15)
--- NOTE | 2017-11-24 16:36 | PN ---
DATE: 11/24/2017 SUBJECTIVE: The patient is seen and examined. Interm events noted. The patient remains in acute rehab unit. Sleeping, arousable. No new complaint. No new issue reported by Nursing staff. PHYSICAL EXAMINATION: GENERAL: The patient is in no acute distress. VITAL SIGNS: Stable. HEART: S1 and S2, normal and regular. LUNGS: Good bilateral air exchange. ABDOMEN: Soft, and nontender. EXTREMITIES: No edema. No calf swelling. No tenderness. No acute ischemia. ELEMENTARY SCHOOL SCIENCE TEACHER: Exam is essentially unchanged. LABORATORY DATA: Available diagnostic data reviewed. ASSESSMENT AND PLAN: Overall, the patient's general medical condition is stable. Plan as ordered. Kobi Laura MD
[2017-11-25] MEDS: Albuterol 0.083% Inhal Sol (2.5 mg/3 mL) UD INH SCH ×4 (02:58→19:47)
[2017-11-25 06:11] LABS: BASO # 0.1 K/uL (0.0-0.2); EOS # 0.5 K/uL (0.0-0.7); EOS % 6.2 % (0.0-4.0); HEMOGLOBIN 7.6 g/dL (12.0-16.0); LYMPH # 0.9 K/uL (1.0-4.3); LYMPH % 11.5 % (20.0-40.0); MEAN CELL VOLUME 92.7 fl (81.0-99.0); MEAN CORPUSCULAR HEMOGLOBIN 32.4 pg (27.0-31.0); MEAN CORPUSCULAR HGB CONC 34.9 g/dL (33.0-37.0); MEAN PLATELET VOLUME 7.6 fl (7.2-11.7); MONO # 0.7 K/uL (0.0-0.8); MONO % 9.6 % (0.0-10.0); NEUT # 5.3 K/uL (1.8-7.0); NEUT % 71.7 % (50.0-75.0); RBC 2.33 Mil/uL (3.80-5.20); RED CELL DISTRIBUTION WIDTH 13.4 % (11.5-14.5); WHITE BLOOD COUNT 7.4 K/uL (4.8-10.8)
[2017-11-25 06:27] LABS: ALB/GLOB RATIO 0.9 (1.0-2.1); ALBUMIN 3.3 g/dL (3.5-5.0); CALCIUM 9.3 mg/dL (8.4-10.2)
[2017-11-25] MEDS: Venlafaxine 37.5 mg ER Cap PO SCH (08:22)
[2017-11-25] MEDS: Lidocaine 5% Patch TD SCH (08:23)
[2017-11-25] MEDS: Ferrous Sulfate 300 mg/5 mL Liq UD PEG SCH ×2 (08:23→17:04)
[2017-11-25] MEDS: Proshield Plus GEL TOP SCH ×2 (10:00→22:09)
--- NOTE | 2017-11-25 13:49 | PN ---
DATE: 11/25/2017 SUBJECTIVE: The patient seen and examined. Interim events noted. Consults noted and appreciated. The patient remains in acute rehab unit. The patient is sleepy, arousable. Not too much of conversation, but no complaint offered. No specific issue reported by nursing staff. PHYSICAL EXAMINATION: GENERAL: The patient is in no acute distress. VITAL SIGNS: Stable. Physical exam is essentially unchanged. DIAGNOSTIC DATA: Available diagnostic data reviewed. ASSESSMENT AND PLAN: Overall, the patient's general medical condition is stable. Plan as ordered. Kobi Laura MD
--- NOTE | 2017-11-25 18:45 | CP.PCM.PN ---
Subjective - Date & Time of Evaluation Date of Evaluation: 11/25/17 Time of Evaluation: 18:44 - Subjective Subjective: Patient seen in the room NAD non-verbal still but follows commands right arm with minimal recovery. Not close to anti-gravity yet but triceps is the best at around 2/5 continue current care team conf. tomorrow Objective - Vital Signs/Intake and Output Vital Signs (last 24 hours): Temp Pulse Resp BP Pulse Ox 97.9 F 72 20 134/65 100 11/25/17 09:16 11/25/17 13:22 11/25/17 09:16 11/25/17 13:02 11/25/17 09:16 Intake and Output: 11/25/17 11/25/17 06:59 18:59 Intake Total 1080 1030 Balance 1080 1030 - Medications Medications: Current Medications Acetaminophen (Tylenol 325mg Tab) 650 mg PO Q6 PRN PRN Reason: Pain scale 1-10. Last Admin: 11/24/17 16:07 Dose: 650 mg Albuterol Sulfate (Albuterol 0.083% Inhal Gabriella (2.5 Mg/3 Ml) Ud) 2.5 mg INH RQ6 [facility] Last Admin: 11/25/17 13:40 Dose: Not Given Amlodipine Besylate (Norvasc) 5 mg PEG DAILY [facility] Last Admin: 11/25/17 08:23 Dose: 5 mg Aspirin (Aspirin Chewable) 81 mg PEG DAILY [facility] Last Admin: 11/25/17 08:22 Dose: 81 mg Atorvastatin Calcium (Lipitor) 20 mg PEG HS [facility] Last Admin: 11/24/17 21:16 Dose: 20 mg Clopidogrel Bisulfate (Plavix) 75 mg PEG DAILY [facility] Last Admin: 11/25/17 08:22 Dose: 75 mg Dimethicone (Proshield Plus Skin Protectant) 1 applic TOP Q12@1000,2200 [facility] Last Admin: 11/25/17 10:00 Dose: 1 applic Diphenoxylate HCl/Atropine (Lomotil 0.025-2.5 Mg Tablet) 1 tab PEG QID PRN PRN Reason: Diarrhea Last Admin: 11/22/17 09:41 Dose: 1 tab Famotidine (Pepcid) 40 mg PEG HS [facility] Last Admin: 11/24/17 21:16 Dose: 40 mg Ferrous Sulfate (Feosol Liq) 300 mg PEG BID [facility] Last Admin: 11/25/17 17:04 Dose: 300 mg Hydralazine HCl (Apresoline) 25 mg PEG Q8 [facility] Last Admin: 11/25/17 13:02 Dose: 25 mg Labetalol HCl (Trandate) 100 mg PEG Q8 [facility] Last Admin: 11/25/17 13:02 Dose: 100 mg Lidocaine (Lidoderm) 1 ea TD DAILY [facility] Last Admin: 11/25/17 08:23 Dose: 1 ea Lisinopril (Zestril) 20 mg PEG DAILY [facility] Last Admin: 11/25/17 08:21 Dose: 20 mg Metformin HCl (Glucophage) 500 mg PEG BIDWM [facility] Last Admin: 11/25/17 17:04 Dose: 500 mg Sitagliptin Phosphate (Januvia) 50 mg PO DAILY [facility] Last Admin: 11/25/17 08:21 Dose: 50 mg Venlafaxine HCl (Effexor Xr) 37.5 mg PO DAILY [facility] Last Admin: 11/25/17 08:22 Dose: 37.5 mg - Labs Labs: 11/25/17 05:40 11/25/17 05:40
[2017-11-26] MEDS: Atropine-Diphenoxylate 0.025-2.5 mg Tab PEG PRN ×2 (00:33→23:31)
[2017-11-26] MEDS: Albuterol 0.083% Inhal Sol (2.5 mg/3 mL) UD INH SCH ×4 (01:29→19:34)
[2017-11-26] MEDS: Ferrous Sulfate 300 mg/5 mL Liq UD PEG SCH ×2 (08:27→17:17)
[2017-11-26] MEDS: Lidocaine 5% Patch TD SCH (08:28)
[2017-11-26] MEDS: Venlafaxine 37.5 mg ER Cap PO SCH (09:00)
[2017-11-26] MEDS ORDERED: Epoetin Alfa 20000 UNIT/ML Inj SC ONE (10:45)
--- NOTE | 2017-11-26 12:09 | CP.PCM.PN ---
Subjective - Date & Time of Evaluation Date of Evaluation: 11/26/17 Time of Evaluation: 10:45 - Subjective Subjective: Patient seen and examined during rounds with Dr. Tong this morning. Participating in daily PT and recovering well. Denies any acute complaints. Objective - Vital Signs/Intake and Output Vital Signs (last 24 hours): Temp Pulse Resp BP Pulse Ox 97.5 F L 63 18 145/59 L 99 11/26/17 09:42 11/26/17 09:42 11/26/17 09:42 11/26/17 09:42 11/26/17 09:42 Intake and Output: 11/26/17 11/26/17 06:59 18:59 Intake Total 1070 Balance 1070 - Medications Medications: Current Medications Acetaminophen (Tylenol 325mg Tab) 650 mg PO Q6 PRN PRN Reason: Pain scale 1-10. Last Admin: 11/24/17 16:07 Dose: 650 mg Albuterol Sulfate (Albuterol 0.083% Inhal Gabriella (2.5 Mg/3 Ml) Ud) 2.5 mg INH RQ6 [facility] Last Admin: 11/26/17 07:42 Dose: 2.5 mg Amlodipine Besylate (Norvasc) 5 mg PEG DAILY [facility] Last Admin: 11/26/17 08:29 Dose: 5 mg Aspirin (Aspirin Chewable) 81 mg PEG DAILY [facility] Last Admin: 11/26/17 08:29 Dose: 81 mg Atorvastatin Calcium (Lipitor) 20 mg PEG HS [facility] Last Admin: 11/25/17 22:08 Dose: 20 mg Clopidogrel Bisulfate (Plavix) 75 mg PEG DAILY [facility] Last Admin: 11/26/17 08:27 Dose: 75 mg Dimethicone (Proshield Plus Skin Protectant) 1 applic TOP 0600,1800 [facility] Diphenoxylate HCl/Atropine (Lomotil 0.025-2.5 Mg Tablet) 1 tab PEG QID PRN PRN Reason: Diarrhea Last Admin: 11/26/17 00:33 Dose: 1 tab Famotidine (Pepcid) 40 mg PEG HS [facility] Last Admin: 11/25/17 22:08 Dose: 40 mg Ferrous Sulfate (Feosol Liq) 300 mg PEG BID [facility] Last Admin: 11/26/17 08:27 Dose: 300 mg Hydralazine HCl (Apresoline) 25 mg PEG Q8 [facility] Last Admin: 11/26/17 05:46 Dose: 25 mg Labetalol HCl (Trandate) 100 mg PEG Q8 [facility] Last Admin: 11/26/17 05:50 Dose: 100 mg Lidocaine (Lidoderm) 1 ea TD DAILY [facility] Last Admin: 11/26/17 08:28 Dose: 1 ea Lisinopril (Zestril) 20 mg PEG DAILY [facility] Last Admin: 11/26/17 08:28 Dose: 20 mg Metformin HCl (Glucophage) 500 mg PEG BIDWM [facility] Last Admin: 11/26/17 08:28 Dose: 500 mg Sitagliptin Phosphate (Januvia) 50 mg PO DAILY [facility] Last Admin: 11/26/17 08:28 Dose: 50 mg Venlafaxine HCl (Effexor Xr) 37.5 mg PO DAILY [facility] Last Admin: 11/25/17 08:22 Dose: 37.5 mg - Labs Labs: 11/25/17 05:40 11/25/17 05:40 - Constitutional Appears: No Acute Distress - Head Exam Head Exam: NORMAL INSPECTION - Eye Exam Eye Exam: Normal appearance - ENT Exam ENT Exam: Mucous Membranes Moist - Neck Exam Neck Exam: Full ROM - Respiratory Exam Respiratory Exam: Clear to Ausculation Bilateral, NORMAL BREATHING PATTERN. absent: Rhonchi, Wheezes - Cardiovascular Exam Cardiovascular Exam: REGULAR RHYTHM, +S1, +S2 - GI/Abdominal Exam GI & Abdominal Exam: Soft. 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 Recovering well in rehab. plan continue with PT/OT c/w meds as ordered neuro following risk reduction
--- NOTE | 2017-11-26 13:06 | PSY.TMCNF ---
Nursing - Vital Signs Vital Signs (Last 8 hours): Vital Signs 11/26/17 11/26/17 11/26/17 05:46 08:28 08:29 Temperature Pulse Rate 71 Respiratory Rate Blood Pressure 146/70 145/59 L 144/65 O2 Sat by Pulse Oximetry 11/26/17 11/26/17 11/26/17 09:00 09:42 13:01 Temperature 98.2 F 97.5 F L Pulse Rate 71 63 Respiratory 20 18 Rate Blood Pressure 144/65 145/59 L 125/59 L O2 Sat by Pulse 99 Oximetry Pain: 0 - Precautions: Precautions: Fall Prevention, Aspiration, Pressure Ulcer - Medications/Other Issues Comment: -Tolerating 25-50% of meals with total assistance. -On PEG Feeding 70 ml/hr from 6pm to 6am. Rate decreased this week from 88ml/hr due to diarrhea when feeding is on . On Lomotil PRN diarrhrea. - Excoriation on perineal area healed. Proshield ongoing. - Consults Comment: Dr Michelle,Dr Cage, Podiatry consult. - Skin Incision Line Treatment: (+) MASD ON PERINEAL AREA, LEFT BUTTOCK EXCORIATED. - Wound Upper Medial Thigh Wound Type: Moisture Associated Skin Damage Wound Stage: STAGE II Wound Shape: Irregular Wound Bed Greatest Portion: Red (Granulation) Wound Bed Lesser Portion: Red (Granulation) Periwound: Reddened Wound General Appearance: Open to air, Reddened Wound Dressing Status: Open to air Left Buttock Wound Type: Moisture Associated Skin Damage Wound Stage: STAGE II Wound Shape: Irregular Tunneling: No Undermining: No Wound Bed Greatest Portion: Red (Granulation) Wound Bed Lesser Portion: Pale [place] Periwound: Excoriated Wound Drainage Amount: None Wound General Appearance: Open to air, Clean/Dry Wound Dressing Status: Open to air Dressing Changed: No Wound Primary Dressing Type: Open to air - Toileting Toileting: Dependent - Bladder Management Bladder Pattern: Incontinent Voiding Method: Diaper Bladder Management: Dependent Frequency of Accidents: >5 - Bowel Management Bowel Pattern: Incontinent Bowel Management: Dependent Frequency of Accidents: >5 - Transfers Transfers: Dependent - ADL's ADL's: Maximal Assistance - Pain Management Comments: On Lidoderm patch to left flank area daily. Tylenol PRN for pain. - Patient/Family Teaching Comments: Care post CVA , Safety and Aspiration Precautions, Skin Care. - Goals/Time Frame Comments: Per multidisciplinary care plan and goals - Provider Provider: Rosalind DIXON RN CRRN Physical Therapy - Bed Mobility Bed Mobility: Maximum Assistance - Transfers Wheelchair to Mat: Maximum Assistance Sit to Stand: Moderate Assistance - Ambulation Level of Assistance: Maximum Assistance Distance (ft.): 6 Orthoses: RLE dorsiflexor assist MEDINA wrap Comment: parallel bars - Stair Negotiation Stairs: Level of Assistance: Not Tested - Standing Balance Static Stand: Moderate Assistance Dynamic Stand: Maximal Assistance, Dependent - Pain Pain (assessed during therapy session): 3 Management Techniques: Massage, Position Change Comment: c/o pain cervical neck region - Insight/Carryover Insight/Carryover: Good - Patient/Family Education Comment: CVA recovery, safety, POC - Assessment/Plan Assessment: Marilyn Givens presents with 1.) severe dysarthria/apraxia of speech secondary to impaired oral motor strength/ROM resulting in significantly impaired articulatory precision and ability to vocalize at the word/phoneme level significantly impacting pt's communicative effectiveness; and 2.) moderate-severe oral dysphagia and mild pharyngeal dysphagia characterized by weak labial seal with impaired oral containment resulting in mild anterior spillage with puree/honey via teaspoon and mild-moderate with honey thick liquids via cup, impaired A-P bolus transit, and intermittent premature spillage of bolus into pharynx with delayed swallow initiation. Pt has been tolerating puree and honey thick liquids with improved oral containment and bolus manipulation, though does intermittently present with cough with PO when she begins to fatigue and requires continued PEG feeds to maintain adequate nutrition/hydration; pt remains an aspiration risk secondary to oral deficits and fatigue. She has also begun to initiate improved verbal production/approximations of social greetings and automatic speech tasks, though inconsistently and requiring max cueing. Pt presents with excellent motivation in all tx tasks and has been demonstrating some gains in motor speech and swallow function; she would benefit from continued speech tx and dysphagia tx with VitalStim (NMES) modality for improved verbal expression, swallow function, and safety to resume PO intake. - Goals Timeframe: 1 week Goals: Grooming: S. UE dressing: Min A. Toileting: mod a. [ End ] - Provider License Number: [id number] Occupational Therapy - Arousal/Attention/Orientation Level of Consciousness: Awake, Alert Patient Orientation: Person, Place, Time, Appropriate to Age, Appropriate to Situation - ADL/IADL Self Feeding: Maximum Assistance Grooming: Moderate Assistance Bathing-Upper Extremity: Maximum Assistance Bathing-Lower Extremity: Maximum Assistance Dressing-Upper Extremity: Maximum Assistance Dressing-Lower Extremity: Maximum Assistance - Sitting Balance Static Sitting: Minimal Assistance Dynamic Sitting: Minimal Assistance, Moderate Assistance - Transfers Wheelchair to Bed Transfers: Maximum Assistance Toilet Transfers: Maximum Assistance - Wheelchair Management Level of Assistance: Maximum Assistance Distance (ft.): 25 - Upper Extremity Status Right Upper Extremity Comment: Flaccidity. no AROM at this time. PROM WFLs Left Upper Extremity Comment: 3+/5 - Pain Pain (assessed during therapy session): 3 Alleviating Techniques: Massage, Position Change Comment: c/o pain cervical neck region - Insight/Carryover Insight/Carryover: Good - Patient/Family Education Comment: CVA recovery, safety, POC - Assessment/Plan Assessment: Marilyn Givens presents with 1.) severe dysarthria/apraxia of speech secondary to impaired oral motor strength/ROM resulting in significantly impaire d articulatory precision and ability to vocalize at the word/phoneme level significantly impacting pt's communicative effectiveness; and 2.) moderate- severe oral dysphagia and mild pharyngeal dysphagia characterized by weak labial seal with impaired oral containment resulting in mild anterior spillage with puree/honey via teaspoon and mild-moderate with honey thick liquids via cup, impaired A-P bolus transit, and intermittent premature spillage of bolus into pharynx with delayed swallow initiation. Pt has been tolerating puree and honey thick liquids with improved oral containment and bolus manipulation, though does intermittently present with cough with PO when she begins to fatigue and requires continued PEG feeds to maintain adequate nutrition/hydration; pt remains an aspiration risk secondary to oral deficits and fatigue. She has also begun to initiate improved verbal production/approximations of social greetings and automatic speech tasks, though inconsistently and requiring max cueing. Pt presents with excellent motivation in all tx tasks and has been demonstrating some gains in motor speech and swallow function; she would benefit from continued speech tx and dysphagia tx with VitalStim (NMES) modality for improved verbal expression, swallow function, and safety to resume PO intake. - Goals Timeframe: 1 week Goals: Grooming: S. UE dressing: Min A. Toileting: mod a. [ End ] - Provider Therapist: CHAI Hernandez License Number: [id number] Speech Therapy - Consult Information Patient on Program: Yes Medical Diagnosis: CVA Treatment Diagnosis: -mod-severe oral dysphagia, mild pharyngeal dysphagia. - severe dysarthria/apraxia of speech - Assessment Speech/Articulation Impairment: Severe Dysphagia/Swallowing Impairment: Severe - Plan Assessment: Marilyn Givens presents with 1.) severe dysarthria/apraxia of speech secondary to impaired oral motor strength/ROM resulting in significantly impaired articulatory precision and ability to vocalize at the word/phoneme level significantly impacting pt's communicative effectiveness; and 2.) moderate-severe oral dysphagia and mild pharyngeal dysphagia characterized by weak labial seal with impaired oral containment resulting in mild anterior spillage with puree/honey via teaspoon and mild-moderate with honey thick liquids via cup, impaired A-P bolus transit, and intermittent premature spillage of bolus into pharynx with delayed swallow initiation. Pt has been tolerating puree and honey thick liquids with improved oral containment and bolus manipulation, though does intermittently present with cough with PO when she begins to fatigue and requires continued PEG feeds to maintain adequate nutrition/hydration; pt remains an aspiration risk secondary to oral deficits and fatigue. She has also begun to initiate improved verbal production/approximations of social greetings and automatic speech tasks, though inconsistently and requiring max cueing. Pt presents with excellent motivation in all tx tasks and has been demonstrating some gains in motor speech and swallow function; she would benefit from continued speech tx and dysphagia tx with VitalStim (NMES) modality for improved verbal expression, swallow function, and safety to resume PO intake. Plan: Continue Dysphagia Therapy, Continue Speech/Language Therapy Frequency: 3-5 times per week Duration: 1 week Goals/Timeframe: See progress note dated 11/26/17 for updated goals/POC Recommendations: -Continue speech and dysphagia tx with NMES 3-5x/week. - Pleasure feeds of puree/honey by teaspoon - Provider Therapist: Latha Medina License Number: [id number] Recreational Therapy - Participation Participation: Participates in Individual and/or Group Sessions - Attendance Attendance: 3-5 times per week - Activities Leisure Activities: Cards and Games - Socialization Level of Socialization: Requires 1:1 guidance to respond, Minimal initiation of interaction to request basic needs, Minimal or no response, Socialization severely limited - Diversional Time Diversional Time: television, cards, Itaconixes - Assessment Assessment/Plan: Marilyn Givens presents with 1.) severe dysarthria/apraxia of speech secondary to impaired oral motor strength/ROM resulting in significantly impaired articulatory precision and ability to vocalize at the word/phoneme level significantly impacting pt's communicative effectiveness; and 2.) moderate-severe oral dysphagia and mild pharyngeal dysphagia characterized by weak labial seal with impaired oral containment resulting in mild anterior spillage with puree/honey via teaspoon and mild-moderate with honey thick liquids via cup, impaired A-P bolus transit, and intermittent premature spillage of bolus into pharynx with delayed swallow initiation. Pt has been tolerating puree and honey thick liquids with improved oral containment and bolus manipulation, though does intermittently present with cough with PO when she begins to fatigue and requires continued PEG feeds to maintain adequate nutrition/hydration; pt remains an aspiration risk secondary to oral deficits and fatigue. She has also begun to initiate improved verbal production/approximations of social greetings and automatic speech tasks, though inconsistently and requiring max cueing. Pt presents with excellent motivation in all tx tasks and has been demonstrating some gains in motor speech and swallow function; she would benefit from continued speech tx and dysphagia tx with VitalStim (NMES) modality for improved verbal expression, swallow function, and safety to resume PO intake. - Provider Therapist: Brittany Griffith, SEGMENT PRODUCER #[id number] Nutrition - Current Diet Current Diet/ Supplement/ Feedings: pureed honey thick liquids moderate consist ent CHO pleasure feed by teaspoon. Jevity 1.2 @ 70 mL/hr [id number] with 150 mL free water every 8 hours- provides 1008 kcal, 47 gm protein, 1128 mL free water with flushes, 840 mL total volume of TF. - Appetite Percent Meal Consumed: 50-74% - Comments Comments: Care post CVA , Safety and Aspiration Precautions, Skin Care. - Assessment/Goals/Time Frame Assessment/Goals/Time Frame: -Tolerating 25-50% of meals with total assistance. -On PEG Feeding 70 ml/hr from 6pm to 6am. Rate decreased this week from 88ml/hr due to diarrhea when feeding is on . On Lomotil PRN diarrhrea. - Excoriation on perineal area healed. Proshield ongoing. - Provider Provider: Marilyn Casillas RD Case Management - Psychosocial Assessment Support Systems: Supportive friends : Ghazala/Luis (friends)- [phone]. 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 Per patient's friend Ghazala, patient was completely independent SIGN DESIGNER although she had some premorbid L sided weakness from previous CVA. Patient was using [facility] occasionally for community negotiation. Discharge Concerns: Limited Support at home, +PEG feeding, max A for all functional mobility Patient/Family Meeting: CM and Rehab team met with patient at bediside and discusssed progress,goal attainment and discharge plan/authoriztion from [facility] [employer]. [employer] called and spoke to friend Ghazala and updated in regadrs to staus and plan. Ghazala stated she would try to come to visit over the next few days. Intervention/Goal/Outcome:: Goal: Minimal assist overall. Tentative Discharge Date: 11/29/2017. LAD 11/22/17 updates to be faxed at that time. CM to initiate [facility] referrals - Discharge Plan Discharge Plan: Subacute care - Provider Provider: ULYSSES Manriquez, CONSTRUCTION COORDINATOR License Number: [id number] Rehabilitation Plan - Treatment Plan Treatment Plan: Physical Therapy, Occupational Therapy, Speech, Dietary, Patient/Family Education - Discharge Plan Estimated Date of Discharge: 11/29/17 Discharge to: Subacute
--- NOTE | 2017-11-26 13:20 | CP.PCM.PN ---
Subjective - Date & Time of Evaluation Date of Evaluation: 11/26/17 Time of Evaluation: 13:19 - Subjective Subjective: Patient seen in the room, doing well no SOB/CP was up in the parallel bars, albeit with max A better trunk control will d/c to [facility] on 11/29/17 has worked very hard and is extremely well motivated in spite of her limitations continue current care Objective - Vital Signs/Intake and Output Vital Signs (last 24 hours): Temp Pulse Resp BP Pulse Ox 97.5 F L 63 18 125/59 L 99 11/26/17 09:42 11/26/17 09:42 11/26/17 09:42 11/26/17 13:01 11/26/17 09:42 Intake and Output: 11/26/17 11/26/17 06:59 18:59 Intake Total 1070 Balance 1070 - Medications Medications: Current Medications Acetaminophen (Tylenol 325mg Tab) 650 mg PO Q6 PRN PRN Reason: Pain scale 1-10. Last Admin: 11/24/17 16:07 Dose: 650 mg Albuterol Sulfate (Albuterol 0.083% Inhal Gabriella (2.5 Mg/3 Ml) Ud) 2.5 mg INH RQ6 [facility] Last Admin: 11/26/17 07:42 Dose: 2.5 mg Amlodipine Besylate (Norvasc) 5 mg PEG DAILY [facility] Last Admin: 11/26/17 08:29 Dose: 5 mg Aspirin (Aspirin Chewable) 81 mg PEG DAILY [facility] Last Admin: 11/26/17 08:29 Dose: 81 mg Atorvastatin Calcium (Lipitor) 20 mg PEG HS [facility] Last Admin: 11/25/17 22:08 Dose: 20 mg Clopidogrel Bisulfate (Plavix) 75 mg PEG DAILY [facility] Last Admin: 11/26/17 08:27 Dose: 75 mg Dimethicone (Proshield Plus Skin Protectant) 1 applic TOP 0600,1800 [facility] Diphenoxylate HCl/Atropine (Lomotil 0.025-2.5 Mg Tablet) 1 tab PEG QID PRN PRN Reason: Diarrhea Last Admin: 11/26/17 00:33 Dose: 1 tab Famotidine (Pepcid) 40 mg PEG HS [facility] Last Admin: 11/25/17 22:08 Dose: 40 mg Ferrous Sulfate (Feosol Liq) 300 mg PEG BID [facility] Last Admin: 11/26/17 08:27 Dose: 300 mg Hydralazine HCl (Apresoline) 25 mg PEG Q8 [facility] Last Admin: 11/26/17 13:01 Dose: 25 mg Labetalol HCl (Trandate) 100 mg PEG Q8 [facility] Last Admin: 11/26/17 13:01 Dose: 100 mg Lidocaine (Lidoderm) 1 ea TD DAILY [facility] Last Admin: 11/26/17 08:28 Dose: 1 ea Lisinopril (Zestril) 20 mg PEG DAILY [facility] Last Admin: 11/26/17 08:28 Dose: 20 mg Metformin HCl (Glucophage) 500 mg PEG BIDWM [facility] Last Admin: 11/26/17 08:28 Dose: 500 mg Sitagliptin Phosphate (Januvia) 50 mg PO DAILY [facility] Last Admin: 11/26/17 08:28 Dose: 50 mg Venlafaxine HCl (Effexor Xr) 37.5 mg PO DAILY [facility] Last Admin: 11/25/17 08:22 Dose: 37.5 mg - Labs Labs: 11/25/17 05:40 11/25/17 05:40
[2017-11-26] MEDS: Proshield Plus GEL TOP SCH (17:18)
[2017-11-27] MEDS: Albuterol 0.083% Inhal Sol (2.5 mg/3 mL) UD INH SCH ×4 (01:16→19:19)
[2017-11-27] MEDS: Proshield Plus GEL TOP SCH ×2 (05:59→17:46)
[2017-11-27 06:48] LABS: HEMOGLOBIN 7.1 g/dL (12.0-16.0); MEAN CELL VOLUME 92.3 fl (81.0-99.0); MEAN CORPUSCULAR HEMOGLOBIN 32.3 pg (27.0-31.0); RBC 2.19 Mil/uL (3.80-5.20); RED CELL DISTRIBUTION WIDTH 13.9 % (11.5-14.5); WHITE BLOOD COUNT 9.2 K/uL (4.8-10.8)
[2017-11-27 07:25] LABS: ALB/GLOB RATIO 0.9 (1.0-2.1); ALBUMIN 3.2 g/dL (3.5-5.0); CALCIUM 9.2 mg/dL (8.4-10.2)
[2017-11-27] MEDS: Ferrous Sulfate 300 mg/5 mL Liq UD PEG SCH ×2 (08:37→17:46)
[2017-11-27] MEDS: Venlafaxine 37.5 mg ER Cap PO SCH (08:37)
[2017-11-27] MEDS: Lidocaine 5% Patch TD SCH (08:39)
[2017-11-27] MEDS ORDERED: Pantoprazole 40 mg EC Tab PO SCH (10:30)
--- NOTE | 2017-11-27 10:49 | CP.PCM.PN ---
Subjective - Date & Time of Evaluation Date of Evaluation: 11/27/17 Time of Evaluation: 10:30 - Subjective Subjective: Patient seen and examined this morning. No acute overnight events. Pt's H&H 7.1/20.2 this morning. Patient is non verbal but understand the conversation and nods to questions. Nurses denies seeing any melena, hemotochezia or bloody stoo l. Patient denies any dizziness. Objective - Vital Signs/Intake and Output Vital Signs (last 24 hours): Temp Pulse Resp BP Pulse Ox 97.7 F 63 18 122/63 98 11/27/17 09:16 11/27/17 09:16 11/27/17 09:16 11/27/17 09:16 11/27/17 09:16 Intake and Output: 11/27/17 11/27/17 06:59 18:59 Intake Total 1070 Balance 1070 - Medications Medications: Current Medications Acetaminophen (Tylenol 325mg Tab) 650 mg PO Q6 PRN PRN Reason: Pain scale 1-10. Last Admin: 11/24/17 16:07 Dose: 650 mg Albuterol Sulfate (Albuterol 0.083% Inhal Gabriella (2.5 Mg/3 Ml) Ud) 2.5 mg INH RQ6 [facility] Last Admin: 11/27/17 07:35 Dose: 2.5 mg Amlodipine Besylate (Norvasc) 5 mg PEG DAILY [facility] Last Admin: 11/27/17 08:37 Dose: 5 mg Aspirin (Aspirin Chewable) 81 mg PEG DAILY [facility] Last Admin: 11/27/17 08:41 Dose: 81 mg Atorvastatin Calcium (Lipitor) 20 mg PEG HS [facility] Last Admin: 11/26/17 21:25 Dose: 20 mg Clopidogrel Bisulfate (Plavix) 75 mg PEG DAILY [facility] Last Admin: 11/27/17 08:39 Dose: 75 mg Dimethicone (Proshield Plus Skin Protectant) 1 applic TOP 0600,1800 [facility] Last Admin: 11/27/17 05:59 Dose: 1 applic Diphenoxylate HCl/Atropine (Lomotil 0.025-2.5 Mg Tablet) 1 tab PEG QID PRN PRN Reason: Diarrhea Last Admin: 11/26/17 23:31 Dose: 1 tab Famotidine (Pepcid) 40 mg PEG HS [facility] Last Admin: 11/26/17 21:25 Dose: 40 mg Ferrous Sulfate (Feosol Liq) 300 mg PEG BID [facility] Last Admin: 11/27/17 08:37 Dose: 300 mg Hydralazine HCl (Apresoline) 25 mg PEG Q8 [facility] Last Admin: 11/27/17 05:58 Dose: 25 mg Labetalol HCl (Trandate) 100 mg PEG Q8 [facility] Last Admin: 11/27/17 05:58 Dose: 100 mg Lidocaine (Lidoderm) 1 ea TD DAILY [facility] Last Admin: 11/27/17 08:39 Dose: 1 ea Lisinopril (Zestril) 20 mg PEG DAILY [facility] Last Admin: 11/27/17 08:38 Dose: 20 mg Metformin HCl (Glucophage) 500 mg PEG BIDWM [facility] Last Admin: 11/27/17 08:38 Dose: 500 mg Sitagliptin Phosphate (Januvia) 50 mg PO DAILY [facility] Last Admin: 11/27/17 08:38 Dose: 50 mg Venlafaxine HCl (Effexor Xr) 37.5 mg PO DAILY [facility] Last Admin: 11/27/17 08:37 Dose: 37.5 mg - Labs Labs: 11/27/17 05:15 11/27/17 05:15 - Constitutional Appears: Non-toxic, No Acute Distress - Head Exam Head Exam: ATRAUMATIC - Eye Exam Eye Exam: Normal appearance - ENT Exam ENT Exam: Mucous Membranes Moist - Respiratory Exam Respiratory Exam: Clear to Ausculation Bilateral, NORMAL BREATHING PATTERN. absent: Rhonchi, Wheezes - Cardiovascular Exam Cardiovascular Exam: REGULAR RHYTHM, +S1, +S2 - GI/Abdominal Exam GI & Abdominal Exam: Soft, Normal Bowel Sounds. 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 Recovering well in rehab. Has anemia of unknown origin. Will transfuse 2 units of prbc. plan Hematology/oncology consult Transfuse 2 units of PRBC Hold PT/OT due to decreased H&H c/w meds as ordered neuro following H&H 7.1/20.2, stable vitals f/u anemia work up c/w aspirin and plavix as per neuro Patient seen and examined with Dr. Ran Flores, pgy-2
[2017-11-27 12:01] LABS: IRON 33 ug/dL (37-170)
[2017-11-27 12:10] LABS: % IRON SATURATION 10 % (20-55); TOTAL IRON BINDING CAPACITY 340 ug/dL (250-450)
[2017-11-27 12:36] LABS: FERRITIN 50.1 ng/Ml (11.1-264.0)
[2017-11-27] MEDS ORDERED: Epoetin Alfa 20000 UNIT/ML Inj SC SCH ×2 (15:58→16:40)
[2017-11-27 21:53] LABS: FOLATE 17.4 ng/mL
[2017-11-28] MEDS ORDERED: Epoetin Alfa 20000 UNIT/ML Inj SC SCH (00:15)
[2017-11-28] MEDS: Albuterol 0.083% Inhal Sol (2.5 mg/3 mL) UD INH SCH ×4 (02:22→19:11)
[2017-11-28 06:28] LABS: BASO # 0.1 K/uL (0.0-0.2); BASO % 0.9 % (0.0-2.0); EOS # 0.5 K/uL (0.0-0.7); EOS % 5.3 % (0.0-4.0); HEMOGLOBIN 8.9 g/dL (12.0-16.0); LYMPH # 0.9 K/uL (1.0-4.3); LYMPH % 9.1 % (20.0-40.0); MEAN CELL VOLUME 93.6 fl (81.0-99.0); MEAN CORPUSCULAR HEMOGLOBIN 32.6 pg (27.0-31.0); MEAN CORPUSCULAR HGB CONC 34.8 g/dL (33.0-37.0); MEAN PLATELET VOLUME 7.6 fl (7.2-11.7); MONO # 0.9 K/uL (0.0-0.8); MONO % 9.5 % (0.0-10.0); NEUT # 7.2 K/uL (1.8-7.0); NEUT % 75.2 % (50.0-75.0); NRBC % 0.1 % (0.0-0.0); PLATELET COUNT 356 K/uL (130-400); RBC 2.72 Mil/uL (3.80-5.20); RED CELL DISTRIBUTION WIDTH 13.9 % (11.5-14.5); WHITE BLOOD COUNT 9.6 K/uL (4.8-10.8)
[2017-11-28] MEDS: Proshield Plus GEL TOP SCH ×2 (07:06→17:15)
[2017-11-28 08:12] LABS: MCH 30.8 pg (27.0-33.0); MCV 93.7 fL (80.0-100.0)
[2017-11-28] MEDS: Venlafaxine 37.5 mg ER Cap PO SCH (08:29)
[2017-11-28] MEDS: Lidocaine 5% Patch TD SCH (08:30)
[2017-11-28] MEDS: Ferrous Sulfate 300 mg/5 mL Liq UD PEG SCH ×2 (08:30→17:15)
--- NOTE | 2017-11-28 10:59 | CP.PCM.CON ---
History of Present Illness - History of Present Illness History of Present Illness: This is a 66 yrs old female who was admitted after a fall and CT scan showed a right sided CVA, . In the hospital after 5 days she started getting aphasic and there was more weakness in the left side.She was transferred to acute rehab for physical therapy.. On admission her Hgb was 8.9gmd with a MCV of 91. The WBC and Platelets were normal. Her Hgb further dropped to 7.1. there was no evidence of bleeding. 1 stool for OB was negative, but I have ordered 3 more. She is on po iron and was started on procrit 20,000u MWF. Her serum iron and iron sat is normal. but ferritin is fair at 40ngm. Her B12 is 373, and retic 2.6.. She had no previous h/o DM,OR HTN she does not smoke or drink Past Patient History - Past Medical History & Family History Past Medical History?: Yes - Past Social History Smoking Status: Never Smoked Alcohol: None Drugs: Denies Home Situation {Lives}: Alone - CARDIAC Hx Hypercholesterolemia: Yes Hx Hypertension: Yes - PULMONARY Hx Respiratory Disorders: No - NEUROLOGICAL HX Cerebrovascular Accident: Yes - HEENT Hx HEENT Problems: No Hx Difficulty Chewing: Yes (loose dentures) - RENAL Hx Chronic Kidney Disease: No - ENDOCRINE/METABOLIC Hx Diabetes Mellitus Type 2: Yes - HEMATOLOGICAL/ONCOLOGICAL Hx AIDS: No Hx Human Immunodeficiency Virus (HIV): No - INTEGUMENTARY Hx Dermatological Problems: No - MUSCULOSKELETAL/RHEUMATOLOGICAL Hx Falls: Yes - GASTROINTESTINAL Hx Gastrointestinal Disorders: No - GENITOURINARY/GYNECOLOGICAL Hx Genitourinary Disorders: No - PSYCHIATRIC Hx Substance Use: No - SURGICAL HISTORY Hx Surgeries: No - ANESTHESIA Hx Anesthesia: No Meds Allergies/Adverse Reactions: Allergies Allergy/AdvReac Type Severity Reaction Status Date / Time No Known Allergies Allergy Verified 10/25/17 11:35 - Medications Medications: Current Medications Acetaminophen (Tylenol 325mg Tab) 650 mg PO Q6 PRN PRN Reason: Pain scale 1-10. Last Admin: 11/24/17 16:07 Dose: 650 mg Albuterol Sulfate (Albuterol 0.083% Inhal Gabriella (2.5 Mg/3 Ml) Ud) 2.5 mg INH RQ6 [facility] Last Admin: 11/28/17 08:14 Dose: 2.5 mg Amlodipine Besylate (Norvasc) 5 mg PEG DAILY [facility] Last Admin: 11/28/17 08:35 Dose: 5 mg Aspirin (Aspirin Chewable) 81 mg PEG DAILY [facility] Last Admin: 11/28/17 08:30 Dose: 81 mg Atorvastatin Calcium (Lipitor) 20 mg PEG HS [facility] Last Admin: 11/27/17 21:06 Dose: 20 mg Clopidogrel Bisulfate (Plavix) 75 mg PEG DAILY [facility] Last Admin: 11/28/17 08:30 Dose: 75 mg Dimethicone (Proshield Plus Skin Protectant) 1 applic TOP 0600,1800 [facility] Last Admin: 11/28/17 07:06 Dose: 1 applic Diphenoxylate HCl/Atropine (Lomotil 0.025-2.5 Mg Tablet) 1 tab PEG QID PRN PRN Reason: Diarrhea Last Admin: 11/26/17 23:31 Dose: 1 tab Epoetin Peterson (Procrit) 20,000 unit SC MWF [facility] Last Admin: 11/28/17 00:58 Dose: 20,000 unit Famotidine (Pepcid) 40 mg PEG HS [facility] Last Admin: 11/27/17 21:07 Dose: 40 mg Ferrous Sulfate (Feosol Liq) 300 mg PEG BID [facility] Last Admin: 11/28/17 08:30 Dose: 300 mg Hydralazine HCl (Apresoline) 25 mg PEG Q8 [facility] Last Admin: 11/28/17 07:07 Dose: 25 mg Labetalol HCl (Trandate) 100 mg PEG Q8 [facility] Last Admin: 11/28/17 07:07 Dose: 100 mg Lidocaine (Lidoderm) 1 ea TD DAILY [facility] Last Admin: 11/28/17 08:30 Dose: 1 ea Lisinopril (Zestril) 20 mg PEG DAILY [facility] Last Admin: 11/28/17 08:29 Dose: 20 mg Metformin HCl (Glucophage) 500 mg PEG BIDWM [facility] Last Admin: 11/28/17 08:33 Dose: 500 mg Sitagliptin Phosphate (Januvia) 50 mg PO DAILY [facility] Last Admin: 11/28/17 08:29 Dose: 50 mg Venlafaxine HCl (Effexor Xr) 37.5 mg PO DAILY [facility] Last Admin: 11/28/17 08:29 Dose: 37.5 mg Physical Exam - Additional Findings Additional findings: Physical exam; Awake .alert,unable to speak Neck; supple, no adenopathy Chest; clear, no rales or rhonchi Heart, rsr,no murmur Abd; soft,no mass,no h/smegaly Results - Vital Signs Recent Vital Signs: Last Vital Signs Temp 98.1 F 11/28/17 09:34 Pulse 78 11/28/17 09:34 Resp 20 11/28/17 09:34 BP 144/78 11/28/17 09:34 Pulse Ox 99 11/28/17 09:34 - Labs Result Diagrams: 11/28/17 05:20 11/27/17 05:15 Labs: Laboratory Results - last 24 hr 11/27/17 11/27/17 11/27/17 11:10 11:10 11:10 WBC RBC Hgb Hct MCV MCH MCHC RDW Plt Count MPV Neut % (Auto) Lymph % (Auto) Hickman % (Auto) Eos % (Auto) Baso % (Auto) Neut # (Auto) Lymph # (Auto) Hickman # (Auto) Eos # (Auto) Baso # (Auto) Retic Count 2.9 H D Hemoglobinopathy Red Blood Count Hemoglobinopathy Hct Hemoglobinopathy Hgb Hemoglobinopathy MCV Hemoglobinopathy MCH Hemoglobinopathy RDW Haptoglobin POC Glucose (mg/dL) Iron 33 L TIBC 340 % Saturation 10 L Ferritin 50.1 Lactate Dehydrogenase 351 Vitamin B12 373 Folate 17.4 Blood Type Blood Type Confirm Antibody Screen Crossmatch BBK History Checked 11/27/17 11/27/17 11/27/17 11:10 17:15 17:15 WBC RBC Hgb Hct MCV MCH MCHC RDW Plt Count MPV Neut % (Auto) Lymph % (Auto) Hickman % (Auto) Eos % (Auto) Baso % (Auto) Neut # (Auto) Lymph # (Auto) Hickman # (Auto) Eos # (Auto) Baso # (Auto) Retic Count Hemoglobinopathy Red Blood Count 2.22 L Hemoglobinopathy Hct 20.8 L Hemoglobinopathy Hgb 6.8 L Hemoglobinopathy MCV 93.7 Hemoglobinopathy MCH 30.8 Hemoglobinopathy RDW 13.7 Haptoglobin 291.5 H POC Glucose (mg/dL) Iron TIBC % Saturation Ferritin Lactate Dehydrogenase Vitamin B12 Folate Blood Type O POSITIVE Blood Type Confirm Antibody Screen Negative Crossmatch See Detail BBK History Checked No verified bt 11/27/17 11/27/1711/28/18 17:44 18:43 05:20 WBC 9.6 RBC 2.72 L Hgb 8.9 L Hct 25.5 L MCV 93.6 MCH 32.6 H MCHC 34.8 RDW 13.9 Plt Count 356 MPV 7.6 Neut % (Auto) 75.2 H Lymph % (Auto) 9.1 L Hickman % (Auto) 9.5 Eos % (Auto) 5.3 H Baso % (Auto) 0.9 Neut # (Auto) 7.2 H Lymph # (Auto) 0.9 L Hickman # (Auto) 0.9 H Eos # (Auto) 0.5 Baso # (Auto) 0.1 Retic Count Hemoglobinopathy Red Blood Count Hemoglobinopathy Hct Hemoglobinopathy Hgb Hemoglobinopathy MCV Hemoglobinopathy MCH Hemoglobinopathy RDW Haptoglobin POC Glucose (mg/dL) 149 H Iron TIBC % Saturation Ferritin Lactate Dehydrogenase Vitamin B12 Folate Blood Type Blood Type Confirm O POSITIVE Antibody Screen Crossmatch BBK History Checked Assessment & Plan - Assessment and Plan (Free Text) Assessment: Impression; Anemia possibly chronic,and off and on because of aspirin+plavix mild iron deficiency and mild B12 deficiency Plan: Plan: I had transfused her 1 unit of blood of blood so she could get PT. Also with procrit it may take 2-3 weeks before we see a response. She should continue to be on the po iron, and I have ordered 3 doses of B12. - Date & Time Date: 11/28/17 Time: 11:28
--- NOTE | 2017-11-28 12:10 | CP.PCM.PN ---
Subjective - Date & Time of Evaluation Date of Evaluation: 11/28/17 Time of Evaluation: 12:10 - Subjective Subjective: Patient seen and examined this morning. No acute overnight events. Pt's H&H 8.9/25.5 after 1 unit of PRBC transfusion. Patient is non verbal but understand the conversation and nods to questions. Participating in PT. Objective - Vital Signs/Intake and Output Vital Signs (last 24 hours): Temp Pulse Resp BP Pulse Ox 98.1 F 78 20 144/78 99 11/28/17 09:34 11/28/17 09:34 11/28/17 09:34 11/28/17 09:34 11/28/17 09:34 Intake and Output: 11/28/17 11/28/17 06:59 18:59 Intake Total 1820 Balance 1820 - Medications Medications: Current Medications Acetaminophen (Tylenol 325mg Tab) 650 mg PO Q6 PRN PRN Reason: Pain scale 1-10. Last Admin: 11/24/17 16:07 Dose: 650 mg Albuterol Sulfate (Albuterol 0.083% Inhal Gabriella (2.5 Mg/3 Ml) Ud) 2.5 mg INH RQ6 [facility] Last Admin: 11/28/17 08:14 Dose: 2.5 mg Amlodipine Besylate (Norvasc) 5 mg PEG DAILY [facility] Last Admin: 11/28/17 08:35 Dose: 5 mg Aspirin (Aspirin Chewable) 81 mg PEG DAILY [facility] Last Admin: 11/28/17 08:30 Dose: 81 mg Atorvastatin Calcium (Lipitor) 20 mg PEG HS [facility] Last Admin: 11/27/17 21:06 Dose: 20 mg Clopidogrel Bisulfate (Plavix) 75 mg PEG DAILY [facility] Last Admin: 11/28/17 08:30 Dose: 75 mg Dimethicone (Proshield Plus Skin Protectant) 1 applic TOP 0600,1800 [facility] Last Admin: 11/28/17 07:06 Dose: 1 applic Diphenoxylate HCl/Atropine (Lomotil 0.025-2.5 Mg Tablet) 1 tab PEG QID PRN PRN Reason: Diarrhea Last Admin: 11/26/17 23:31 Dose: 1 tab Epoetin Peterson (Procrit) 20,000 unit SC MWF [facility] Last Admin: 11/28/17 00:58 Dose: 20,000 unit Famotidine (Pepcid) 40 mg PEG HS [facility] Last Admin: 11/27/17 21:07 Dose: 40 mg Ferrous Sulfate (Feosol Liq) 300 mg PEG BID [facility] Last Admin: 11/28/17 08:30 Dose: 300 mg Hydralazine HCl (Apresoline) 25 mg PEG Q8 [facility] Last Admin: 11/28/17 07:07 Dose: 25 mg Labetalol HCl (Trandate) 100 mg PEG Q8 [facility] Last Admin: 11/28/17 07:07 Dose: 100 mg Lidocaine (Lidoderm) 1 ea TD DAILY [facility] Last Admin: 11/28/17 08:30 Dose: 1 ea Lisinopril (Zestril) 20 mg PEG DAILY [facility] Last Admin: 11/28/17 08:29 Dose: 20 mg Metformin HCl (Glucophage) 500 mg PEG BIDWM [facility] Last Admin: 11/28/17 08:33 Dose: 500 mg Sitagliptin Phosphate (Januvia) 50 mg PO DAILY [facility] Last Admin: 11/28/17 08:29 Dose: 50 mg Venlafaxine HCl (Effexor Xr) 37.5 mg PO DAILY [facility] Last Admin: 11/28/17 08:29 Dose: 37.5 mg - Labs Labs: 11/28/17 05:20 11/27/17 05:15 - Additional Findings Additional findings: - Constitutional Appears: Non-toxic, No Acute Distress - Head Exam Head Exam: ATRAUMATIC - Eye Exam Eye Exam: Normal appearance - ENT Exam ENT Exam: Mucous Membranes Moist - Respiratory Exam Respiratory Exam: Clear to Auscultation Bilateral, NORMAL BREATHING PATTERN. absent: Rhonchi, Wheezes - Cardiovascular Exam Cardiovascular Exam: REGULAR RHYTHM, +S1, +S2 - GI/Abdominal Exam GI & Abdominal Exam: Soft, Normal Bowel Sounds. absent: Tenderness - Neurological Exam Neurological Exam: Alert, Awake - Skin Skin Exam: Normal Color, Warm Assessment and Plan - Assessment and Plan (Free Text) Assessment: Assessment: 66 y/o female admitted to rehab after an acute CVA involving the left p osterolateral basal ganglia. Recovering well in rehab. Has anemia of unknown origin s/p 1 unit of prbc yesterday. plan Hematology/oncology consult appreciated. Continue with PT/OT c/w meds as ordered neuro following c/w aspirin and plavix as per neuro Patient seen and examined with Dr. Ran Flores, pgy-2
[2017-11-28 13:54] LABS: BASOPHIL 1 % (0-2); EOSINOPHIL 3 % (0-7); LYMPHOCYTE 11 % (20-50); MONOCYTE 5 % (0-10); NEUTROPHIL 80 % (42-75); NUCLEATED RED BLOOD CELL 1 % (0-0); PLATELET ESTIMATE NORMAL (NORMAL); TOTAL CELLS COUNTED 100
[2017-11-28 13:55] LABS: HYPOCHROMIC SLIGHT; POLYCHROMIC SLIGHT
[2017-11-29] MEDS: Albuterol 0.083% Inhal Sol (2.5 mg/3 mL) UD INH SCH ×4 (01:00→19:24)
[2017-11-29 04:44] LABS: HEMOGLOBIN A 96.8 Percent (>96.0); HEMOGLOBIN A2 2.2 Percent (1.8-3.5)
[2017-11-29] MEDS: Proshield Plus GEL TOP SCH ×2 (06:04→17:38)
--- NOTE | 2017-11-29 08:14 | CP.PCM.PN ---
Subjective - Date & Time of Evaluation Date of Evaluation: 11/29/17 Time of Evaluation: 08:12 - Subjective Subjective: Pt is doing well as far as her cbc is concerned. Her hgb went up to 8.9gms post transfusion and she is on po iron and procrit. Will ck CBC twice weekly Objective - Vital Signs/Intake and Output Vital Signs (last 24 hours): Temp Pulse Resp BP Pulse Ox 98.1 F 71 20 149/62 97 11/28/17 21:00 11/29/17 06:05 11/28/17 21:00 11/29/17 06:05 11/28/17 21:00 Intake and Output: 11/29/17 11/29/17 06:59 18:59 Intake Total 1100 Balance 1100 - Medications Medications: Current Medications Acetaminophen (Tylenol 325mg Tab) 650 mg PO Q6 PRN PRN Reason: Pain scale 1-10. Last Admin: 11/24/17 16:07 Dose: 650 mg Albuterol Sulfate (Albuterol 0.083% Inhal Gabriella (2.5 Mg/3 Ml) Ud) 2.5 mg INH RQ6 [facility] Last Admin: 11/29/17 07:19 Dose: 2.5 mg Amlodipine Besylate (Norvasc) 5 mg PEG DAILY [facility] Last Admin: 11/28/17 08:35 Dose: 5 mg Aspirin (Aspirin Chewable) 81 mg PEG DAILY [facility] Last Admin: 11/28/17 08:30 Dose: 81 mg Atorvastatin Calcium (Lipitor) 20 mg PEG HS [facility] Last Admin: 11/28/17 22:31 Dose: 20 mg Clopidogrel Bisulfate (Plavix) 75 mg PEG DAILY [facility] Last Admin: 11/28/17 08:30 Dose: 75 mg Dimethicone (Proshield Plus Skin Protectant) 1 applic TOP 0600,1800 [facility] Last Admin: 11/29/17 06:04 Dose: 1 applic Diphenoxylate HCl/Atropine (Lomotil 0.025-2.5 Mg Tablet) 1 tab PEG QID PRN PRN Reason: Diarrhea Last Admin: 11/26/17 23:31 Dose: 1 tab Epoetin Peterson (Procrit) 20,000 unit SC MWF [facility] Last Admin: 11/28/17 00:58 Dose: 20,000 unit Famotidine (Pepcid) 40 mg PEG HS [facility] Last Admin: 11/28/17 22:31 Dose: 40 mg Ferrous Sulfate (Feosol Liq) 300 mg PEG BID [facility] Last Admin: 11/28/17 17:15 Dose: 300 mg Hydralazine HCl (Apresoline) 25 mg PEG Q8 [facility] Last Admin: 11/29/17 06:05 Dose: 25 mg Labetalol HCl (Trandate) 100 mg PEG Q8 [facility] Last Admin: 11/29/17 06:05 Dose: 100 mg Lidocaine (Lidoderm) 1 ea TD DAILY [facility] Last Admin: 11/28/17 08:30 Dose: 1 ea Lisinopril (Zestril) 20 mg PEG DAILY [facility] Last Admin: 11/28/17 08:29 Dose: 20 mg Metformin HCl (Glucophage) 500 mg PEG BIDWM [facility] Last Admin: 11/28/17 17:15 Dose: 500 mg Sitagliptin Phosphate (Januvia) 50 mg PO DAILY [facility] Last Admin: 11/28/17 08:29 Dose: 50 mg Venlafaxine HCl (Effexor Xr) 37.5 mg PO DAILY [facility] Last Admin: 11/28/17 08:29 Dose: 37.5 mg - Labs Labs: 11/28/17 05:20 11/27/17 05:15
[2017-11-29] MEDS: Ferrous Sulfate 300 mg/5 mL Liq UD PEG SCH ×2 (09:03→17:38)
[2017-11-29] MEDS: Lidocaine 5% Patch TD SCH (09:03)
[2017-11-29] MEDS: Venlafaxine 37.5 mg ER Cap PO SCH (09:03)
--- NOTE | 2017-11-29 12:39 | CP.PCM.PN ---
Subjective - Date & Time of Evaluation Date of Evaluation: 11/29/17 Time of Evaluation: 11:45 - Subjective Subjective: Patient seen and examined this morning with Dr. Wood. No acute overnight events. Patient is non verbal but understand the conversation and nods to questions. Patient is motivated and participates in PT. No other complaints. Objective - Vital Signs/Intake and Output Vital Signs (last 24 hours): Temp Pulse Resp BP Pulse Ox 97.9 F 69 18 169/72 H 98 11/29/17 09:00 11/29/17 09:05 11/29/17 09:00 11/29/17 09:05 11/29/17 09:00 Intake and Output: 11/29/17 11/29/17 06:59 18:59 Intake Total 1100 Balance 1100 - Medications Medications: Current Medications Acetaminophen (Tylenol 325mg Tab) 650 mg PO Q6 PRN PRN Reason: Pain scale 1-10. Last Admin: 11/24/17 16:07 Dose: 650 mg Albuterol Sulfate (Albuterol 0.083% Inhal Gabriella (2.5 Mg/3 Ml) Ud) 2.5 mg INH RQ6 [facility] Last Admin: 11/29/17 07:19 Dose: 2.5 mg Amlodipine Besylate (Norvasc) 5 mg PEG DAILY [facility] Last Admin: 11/29/17 09:05 Dose: 5 mg Aspirin (Aspirin Chewable) 81 mg PEG DAILY [facility] Last Admin: 11/29/17 09:02 Dose: 81 mg Atorvastatin Calcium (Lipitor) 20 mg PEG HS [facility] Last Admin: 11/28/17 22:31 Dose: 20 mg Clopidogrel Bisulfate (Plavix) 75 mg PEG DAILY [facility] Last Admin: 11/29/17 09:05 Dose: 75 mg Dimethicone (Proshield Plus Skin Protectant) 1 applic TOP 0600,1800 [facility] Last Admin: 11/29/17 06:04 Dose: 1 applic Diphenoxylate HCl/Atropine (Lomotil 0.025-2.5 Mg Tablet) 1 tab PEG QID PRN PRN Reason: Diarrhea Last Admin: 11/26/17 23:31 Dose: 1 tab Epoetin Peterson (Procrit) 20,000 unit SC MWF [facility] Last Admin: 11/28/17 00:58 Dose: 20,000 unit Famotidine (Pepcid) 40 mg PEG HS [facility] Last Admin: 10/04/18 22:31 Dose: 40 mg Ferrous Sulfate (Feosol Liq) 300 mg PEG BID [facility] Last Admin: 11/29/17 09:03 Dose: 300 mg Hydralazine HCl (Apresoline) 25 mg PEG Q8 [facility] Last Admin: 11/29/17 06:05 Dose: 25 mg Labetalol HCl (Trandate) 100 mg PEG Q8 [facility] Last Admin: 11/29/17 06:05 Dose: 100 mg Lidocaine (Lidoderm) 1 ea TD DAILY [facility] Last Admin: 11/29/17 09:03 Dose: 1 ea Lisinopril (Zestril) 20 mg PEG DAILY [facility] Last Admin: 11/29/17 09:05 Dose: 20 mg Metformin HCl (Glucophage) 500 mg PEG BIDWM [facility] Last Admin: 11/29/17 09:03 Dose: 500 mg Sitagliptin Phosphate (Januvia) 50 mg PO DAILY [facility] Last Admin: 11/29/17 09:03 Dose: 50 mg Venlafaxine HCl (Effexor Xr) 37.5 mg PO DAILY [facility] Last Admin: 11/29/17 09:03 Dose: 37.5 mg - Labs Labs: 11/28/17 05:20 11/27/17 05:15 - Additional Findings Additional findings: - Constitutional Appears: Non-toxic, No Acute Distress - Head Exam Head Exam: ATRAUMATIC - Eye Exam Eye Exam: Normal appearance - ENT Exam ENT Exam: Mucous Membranes Moist - Respiratory Exam Respiratory Exam: Clear to Auscultation Bilateral, NORMAL BREATHING PATTERN. absent: Rhonchi, Wheezes - Cardiovascular Exam Cardiovascular Exam: REGULAR RHYTHM, +S1, +S2 - GI/Abdominal Exam GI & Abdominal Exam: Soft, Normal Bowel Sounds. 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 Recovering well in rehab. Has anemia of unknown origin s/p 1 unit of prbc. plan Hematology/oncology consult appreciated. Continue with PT/OT c/w meds as ordered neuro following c/w aspirin and plavix as per neuro FIT is positive, F/U on FOBT, if FOBT is positive, consider GI consult Patient seen and examined with Dr. Israel Flores, [id number]
--- NOTE | 2017-11-29 17:43 | CP.PCM.PN ---
Subjective - Date & Time of Evaluation Date of Evaluation: 11/29/17 Time of Evaluation: 17:42 - Subjective Subjective: Patient seen in the room doing ok ate breakfast and lunch around 50% but didn't have the desire to try dinner + guiac will have GI consult. ALISTAIR until 12/04/17 continue current care Objective - Vital Signs/Intake and Output Vital Signs (last 24 hours): Temp Pulse Resp BP Pulse Ox 97.9 F 70 18 140/59 L 98 11/29/17 09:00 11/29/17 13:22 11/29/17 09:00 11/29/17 13:22 11/29/17 09:00 Intake and Output: 11/29/17 11/29/17 06:59 18:59 Intake Total 1100 Balance 1100 - Medications Medications: Current Medications Acetaminophen (Tylenol 325mg Tab) 650 mg PO Q6 PRN PRN Reason: Pain scale 1-10. Last Admin: 11/24/17 16:07 Dose: 650 mg Albuterol Sulfate (Albuterol 0.083% Inhal Gabriella (2.5 Mg/3 Ml) Ud) 2.5 mg INH RQ6 [facility] Last Admin: 11/29/17 07:19 Dose: 2.5 mg Amlodipine Besylate (Norvasc) 5 mg PEG DAILY [facility] Last Admin: 11/29/17 09:05 Dose: 5 mg Aspirin (Aspirin Chewable) 81 mg PEG DAILY [facility] Last Admin: 11/29/17 09:02 Dose: 81 mg Atorvastatin Calcium (Lipitor) 20 mg PEG HS [facility] Last Admin: 11/28/17 22:31 Dose: 20 mg Clopidogrel Bisulfate (Plavix) 75 mg PEG DAILY [facility] Last Admin: 11/29/17 09:05 Dose: 75 mg Dimethicone (Proshield Plus Skin Protectant) 1 applic TOP 0600,1800 [facility] Last Admin: 11/29/17 17:38 Dose: 1 applic Diphenoxylate HCl/Atropine (Lomotil 0.025-2.5 Mg Tablet) 1 tab PEG QID PRN PRN Reason: Diarrhea Last Admin: 11/26/17 23:31 Dose: 1 tab Epoetin Peterson (Procrit) 20,000 unit SC MWF [facility] Last Admin: 11/28/17 00:58 Dose: 20,000 unit Famotidine (Pepcid) 40 mg PEG HS [facility] Last Admin: 11/28/17 22:31 Dose: 40 mg Ferrous Sulfate (Feosol Liq) 300 mg PEG BID [facility] Last Admin: 11/29/17 17:38 Dose: 300 mg Hydralazine HCl (Apresoline) 25 mg PEG Q8 [facility] Last Admin: 11/29/17 13:22 Dose: 25 mg Labetalol HCl (Trandate) 100 mg PEG Q8 [facility] Last Admin: 11/29/17 13:23 Dose: 100 mg Lidocaine (Lidoderm) 1 ea TD DAILY [facility] Last Admin: 11/29/17 09:03 Dose: 1 ea Lisinopril (Zestril) 20 mg PEG DAILY [facility] Last Admin: 11/29/17 09:05 Dose: 20 mg Metformin HCl (Glucophage) 500 mg PEG BIDWM [facility] Last Admin: 11/29/17 17:39 Dose: 500 mg Sitagliptin Phosphate (Januvia) 50 mg PO DAILY [facility] Last Admin: 11/29/17 09:03 Dose: 50 mg Venlafaxine HCl (Effexor Xr) 37.5 mg PO DAILY [facility] Last Admin: 11/29/17 09:03 Dose: 37.5 mg - Labs Labs: 11/28/17 05:20 11/27/17 05:15
[2017-11-29] MEDS: Epoetin Alfa 20000 UNIT/ML Inj SC SCH (21:35)
[2017-11-30] MEDS: Albuterol 0.083% Inhal Sol (2.5 mg/3 mL) UD INH SCH ×4 (01:40→19:08)
[2017-11-30] MEDS: Proshield Plus GEL TOP SCH ×2 (05:55→17:35)
[2017-11-30] MEDS: Lidocaine 5% Patch TD SCH (08:20)
[2017-11-30] MEDS: Ferrous Sulfate 300 mg/5 mL Liq UD PEG SCH ×2 (08:21→17:34)
[2017-11-30] MEDS: Venlafaxine 37.5 mg ER Cap PO SCH (08:22)
[2017-11-30 08:30] LABS: HEMOGLOBIN 8.6 g/dL (12.0-16.0); MEAN CELL VOLUME 94.8 fl (81.0-99.0); MEAN CORPUSCULAR HEMOGLOBIN 31.8 pg (27.0-31.0); MEAN CORPUSCULAR HGB CONC 33.5 g/dL (33.0-37.0); RBC 2.7 Mil/uL (3.80-5.20); RED CELL DISTRIBUTION WIDTH 14.3 % (11.5-14.5); WHITE BLOOD COUNT 9.9 K/uL (4.8-10.8)
[2017-11-30 08:52] LABS: CALCIUM 9.2 mg/dL (8.4-10.2)
--- NOTE | 2017-11-30 09:56 | CP.PCM.PN ---
Subjective - Date & Time of Evaluation Date of Evaluation: 11/30/17 Time of Evaluation: 09:55 - Subjective Subjective: Pt has no new symptoms. # stool specimens were sent and 2 were positive for blood,the stool globulin was also positive. A GI evaluation has been called. Will repeat cbc on saturday Objective - Vital Signs/Intake and Output Vital Signs (last 24 hours): Temp Pulse Resp BP Pulse Ox 97.7 F 67 18 134/57 L 97 11/30/17 08:07 11/30/17 08:23 11/30/17 08:07 11/30/17 08:23 11/30/17 08:07 Intake and Output: 11/30/17 11/30/17 06:59 18:59 Intake Total 1100 Balance 1100 - Medications Medications: Current Medications Acetaminophen (Tylenol 325mg Tab) 650 mg PO Q6 PRN PRN Reason: Pain scale 1-10. Last Admin: 11/24/17 16:07 Dose: 650 mg Albuterol Sulfate (Albuterol 0.083% Inhal Gabriella (2.5 Mg/3 Ml) Ud) 2.5 mg INH RQ6 [facility] Last Admin: 11/30/17 07:51 Dose: 2.5 mg Amlodipine Besylate (Norvasc) 5 mg PEG DAILY [facility] Last Admin: 11/30/17 08:20 Dose: 5 mg Aspirin (Aspirin Chewable) 81 mg PEG DAILY [facility] Last Admin: 11/30/17 08:21 Dose: 81 mg Atorvastatin Calcium (Lipitor) 20 mg PEG HS [facility] Last Admin: 11/29/17 21:01 Dose: 20 mg Clopidogrel Bisulfate (Plavix) 75 mg PEG DAILY [facility] Last Admin: 11/30/17 08:21 Dose: 75 mg Dimethicone (Proshield Plus Skin Protectant) 1 applic TOP 0600,1800 [facility] Last Admin: 11/30/17 05:55 Dose: 1 applic Diphenoxylate HCl/Atropine (Lomotil 0.025-2.5 Mg Tablet) 1 tab PEG QID PRN PRN Reason: Diarrhea Last Admin: 11/26/17 23:31 Dose: 1 tab Epoetin Peterson (Procrit) 20,000 unit SC MWF [facility] Last Admin: 11/29/17 21:35 Dose: 20,000 unit Famotidine (Pepcid) 40 mg PEG HS [facility] Last Admin: 11/29/17 21:01 Dose: 40 mg Ferrous Sulfate (Feosol Liq) 300 mg PEG BID [facility] Last Admin: 11/30/17 08:21 Dose: 300 mg Hydralazine HCl (Apresoline) 25 mg PEG Q8 [facility] Last Admin: 11/30/17 05:54 Dose: 25 mg Labetalol HCl (Trandate) 100 mg PEG Q8 [facility] Last Admin: 11/30/17 05:54 Dose: 100 mg Lidocaine (Lidoderm) 1 ea TD DAILY [facility] Last Admin: 11/30/17 08:20 Dose: 1 ea Lisinopril (Zestril) 20 mg PEG DAILY [facility] Last Admin: 11/30/17 08:23 Dose: 20 mg Metformin HCl (Glucophage) 500 mg PEG BIDWM [facility] Last Admin: 11/30/17 08:21 Dose: 500 mg Sitagliptin Phosphate (Januvia) 50 mg PO DAILY [facility] Last Admin: 11/30/17 08:22 Dose: 50 mg Venlafaxine HCl (Effexor Xr) 37.5 mg PO DAILY [facility] Last Admin: 11/30/17 08:22 Dose: 37.5 mg - Labs Labs: 11/30/17 07:00 11/30/17 07:00
[2017-11-30 10:08] LABS: BASO # 0.1 K/uL (0.0-0.2); BASO % 0.9 % (0.0-2.0); EOS # 0.4 K/uL (0.0-0.7); EOS % 4.5 % (0.0-4.0); HEMOGLOBIN 8.7 g/dL (12.0-16.0); LYMPH # 0.9 K/uL (1.0-4.3); LYMPH % 9.2 % (20.0-40.0); MEAN CELL VOLUME 94.1 fl (81.0-99.0); MEAN CORPUSCULAR HEMOGLOBIN 32.6 pg (27.0-31.0); MEAN CORPUSCULAR HGB CONC 34.6 g/dL (33.0-37.0); MEAN PLATELET VOLUME 7.4 fl (7.2-11.7); MONO # 0.9 K/uL (0.0-0.8); MONO % 8.7 % (0.0-10.0); NEUT # 7.6 K/uL (1.8-7.0); NEUT % 76.7 % (50.0-75.0); NRBC % 0.2 % (0.0-0.0); RBC 2.66 Mil/uL (3.80-5.20); WHITE BLOOD COUNT 9.9 K/uL (4.8-10.8)
--- NOTE | 2017-11-30 11:35 | CP.PCM.CON ---
History of Present Illness - History of Present Illness History of Present Illness: GI consult requested by primary team- This is a 66-year-old woman with a past medical history of ischemic stroke about 3 years ago, with some slight left sided residual weakness, who presented to the ED 3 weeks ago with acute onset of right side weakness resulting in a fall, and an NIHSS of 5. Non-contrast CT scan of the head showed chronic bilateral lacunar infarcts, but no acute bleed or evidence of new infarct. She was given IV tPA for left basal ganglia infarct. She is currently on dual anti platelet. She progressed to have more significant aphasia and right side weakness. She was transferred to inpatient acute rehab and Gi was consulted for drop in Hb was 9.4 to 7 gm/dl. She has a PEG tube with clear gastric contents that was placed last month after the stroke. She has black stool and FOBT positive x 2 which was done on ASA and iron Review of Systems - Review of Systems Review of Systems: 12 point ROS unremarkable except that documented in the chart Past Patient History - Past Medical History & Family History Past Medical History?: Yes - Past Social History Smoking Status: Never Smoked Alcohol: None Drugs: Denies Home Situation {Lives}: Alone - CARDIAC Hx Hypercholesterolemia: Yes Hx Hypertension: Yes - PULMONARY Hx Respiratory Disorders: No - NEUROLOGICAL HX Cerebrovascular Accident: Yes - HEENT Hx HEENT Problems: No Hx Difficulty Chewing: Yes (loose dentures) - RENAL Hx Chronic Kidney Disease: No - ENDOCRINE/METABOLIC Hx Diabetes Mellitus Type 2: Yes - HEMATOLOGICAL/ONCOLOGICAL Hx AIDS: No Hx Human Immunodeficiency Virus (HIV): No - INTEGUMENTARY Hx Dermatological Problems: No - MUSCULOSKELETAL/RHEUMATOLOGICAL Hx Falls: Yes - GASTROINTESTINAL Hx Gastrointestinal Disorders: No - GENITOURINARY/GYNECOLOGICAL Hx Genitourinary Disorders: No - PSYCHIATRIC Hx Substance Use: No - SURGICAL HISTORY Hx Surgeries: No - ANESTHESIA Hx Anesthesia: No Meds Allergies/Adverse Reactions: Allergies Allergy/AdvReac Type Severity Reaction Status Date / Time No Known Allergies Allergy Verified 10/25/17 11:35 - Medications Medications: Current Medications Acetaminophen (Tylenol 325mg Tab) 650 mg PO Q6 PRN PRN Reason: Pain scale 1-10. Last Admin: 11/24/17 16:07 Dose: 650 mg Albuterol Sulfate (Albuterol 0.083% Inhal Gabriella (2.5 Mg/3 Ml) Ud) 2.5 mg INH RQ6 [facility] Last Admin: 11/30/17 07:51 Dose: 2.5 mg Amlodipine Besylate (Norvasc) 5 mg PEG DAILY [facility] Last Admin: 11/30/17 08:20 Dose: 5 mg Aspirin (Aspirin Chewable) 81 mg PEG DAILY [facility] Last Admin: 11/30/17 08:21 Dose: 81 mg Atorvastatin Calcium (Lipitor) 20 mg PEG HS [facility] Last Admin: 11/29/17 21:01 Dose: 20 mg Clopidogrel Bisulfate (Plavix) 75 mg PEG DAILY [facility] Last Admin: 11/30/17 08:21 Dose: 75 mg Dimethicone (Proshield Plus Skin Protectant) 1 applic TOP 0600,1800 [facility] Last Admin: 11/30/17 05:55 Dose: 1 applic Diphenoxylate HCl/Atropine (Lomotil 0.025-2.5 Mg Tablet) 1 tab PEG QID PRN PRN Reason: Diarrhea Last Admin: 11/26/17 23:31 Dose: 1 tab Epoetin Peterson (Procrit) 20,000 unit SC MWF [facility] Last Admin: 11/29/17 21:35 Dose: 20,000 unit Famotidine (Pepcid) 40 mg PEG HS [facility] Last Admin: 11/29/17 21:01 Dose: 40 mg Ferrous Sulfate (Feosol Liq) 300 mg PEG BID [facility] Last Admin: 11/30/17 08:21 Dose: 300 mg Hydralazine HCl (Apresoline) 25 mg PEG Q8 [facility] Last Admin: 11/30/17 05:54 Dose: 25 mg Labetalol HCl (Trandate) 100 mg PEG Q8 [facility] Last Admin: 11/30/17 05:54 Dose: 100 mg Lidocaine (Lidoderm) 1 ea TD DAILY [facility] Last Admin: 11/30/17 08:20 Dose: 1 ea Lisinopril (Zestril) 20 mg PEG DAILY [facility] Last Admin: 11/30/17 08:23 Dose: 20 mg Metformin HCl (Glucophage) 500 mg PEG BIDWM [facility] Last Admin: 11/30/17 08:21 Dose: 500 mg Sitagliptin Phosphate (Januvia) 50 mg PO DAILY [facility] Last Admin: 11/30/17 08:22 Dose: 50 mg Venlafaxine HCl (Effexor Xr) 37.5 mg PO DAILY [facility] Last Admin: 11/30/17 08:22 Dose: 37.5 mg Physical Exam - Constitutional Appears: Well, Non-toxic, No Acute Distress - Head Exam Head Exam: ATRAUMATIC, NORMAL INSPECTION, NORMOCEPHALIC - Neck Exam Neck exam: Positive for: Normal Inspection - Respiratory Exam Respiratory Exam: Clear to Auscultation Bilateral, NORMAL BREATHING PATTERN - Cardiovascular Exam Cardiovascular Exam: REGULAR RHYTHM, RRR, +S1, +S2 - GI/Abdominal Exam GI & Abdominal Exam: Normal Bowel Sounds, Soft Additional comments: Peg tube in place. No induration or erythema around it. No blood in gastric tube - only stomach contents on aspiration - Extremities Exam Extremities exam: Positive for: normal inspection, pedal edema, pedal pulses present - Skin Skin Exam: Dry, Pallor Results - Vital Signs Recent Vital Signs: Last Vital Signs Temp 97.7 F 11/30/17 08:07 Pulse 67 11/30/17 08:23 Resp 18 11/30/17 08:07 BP 134/57 L 11/30/17 08:23 Pulse Ox 97 11/30/17 08:07 - Labs Result Diagrams: 11/30/17 08:35 11/30/17 07:00 Labs: Laboratory Results - last 24 hr 11/28/17 11/29/17 11/30/17 07:25 17:19 05:20 WBC RBC Hgb Hct MCV MCH MCHC RDW Plt Count MPV Neut % (Auto) Lymph % (Auto) Page % (Auto) Eos % (Auto) Baso % (Auto) Neut # (Auto) Lymph # (Auto) Page # (Auto) Eos # (Auto) Baso # (Auto) Sodium Potassium Chloride Carbon Dioxide Anion Gap BUN Creatinine Est GFR ( Amer) Est GFR (Non-Af Amer) POC Glucose (mg/dL) 119 H 192 H Random Glucose Calcium Stool Occult Blood Positive H 11/30/17 11/30/17 11/30/17 07:00 07:00 08:35 WBC 9.9 9.9 RBC 2.70 L 2.66 L Hgb 8.6 L 8.7 L Hct 25.5 L 25.0 L MCV 94.8 94.1 MCH 31.8 H 32.6 H MCHC 33.5 34.6 RDW 14.3 14.0 Plt Count 389 391 MPV Cancelled 7.4 Neut % (Auto) Cancelled 76.7 H Lymph % (Auto) Cancelled 9.2 L Page % (Auto) Cancelled 8.7 Eos % (Auto) Cancelled 4.5 H Baso % (Auto) Cancelled 0.9 Neut # (Auto) Cancelled 7.6 H Lymph # (Auto) Cancelled 0.9 L Page # (Auto) Cancelled 0.9 H Eos # (Auto) Cancelled 0.4 Baso # (Auto) Cancelled 0.1 Sodium 130 L Potassium 5.0 Chloride 97 L Carbon Dioxide 25 Anion Gap 13 BUN 33 H Creatinine 1.2 Est GFR ( Amer) 54 Est GFR (Non-Af Amer) 45 POC Glucose (mg/dL) Random Glucose 147 H Calcium 9.2 Stool Occult Blood Assessment & Plan - Assessment and Plan (Free Text) Assessment: This is a 66 yr old F with new onset ischemic stroke of basal ganglia with motor deficits on dual antiplatelet after thrombolysis. She had PEG placed endoscopically 3 weeks ago through which she is getting feeds. No blood in gastric aspiration. Stool is black as patient is on iron pills. Stool occult was sent while patient was on ASA and iron which needs to be held for truly positive results. Stool occult can also be positive due to lower Gi bleeding with diverticular bleed or hemorrhoids. She has non bloody stools. The team was concerned for a GI bleeding but I doubt that is the reason for her drop in Hb. She had EGd 3 weeks ago for PEG that did not show any mucosal defects or ulcers. Recommend continuing current management and colonoscopy for chronic anemia once acute issues have resolved and patient is able to take the prep. Plan: - Trend cbc and transfuse as needed - No overt GI bleeding - Continue dual anti platelet - Recommend PPI through PEG for GI ulcer prevention on KARLA - Hemolysis labs - Outpatient colonoscopy once acute issues have resolved - Continue supportive care - PEG tube precautions - Aspiration precautions - Thank you for letting us participate in the care of your patient - Discussed with nursing staff and Dr Tong - DVT prophylaxis
--- NOTE | 2017-11-30 12:11 | CP.PCM.PN ---
Subjective - Date & Time of Evaluation Date of Evaluation: 11/30/17 Time of Evaluation: 11:00 - Subjective Subjective: Patient seen and examined this morning. No acute overnight events. Patient was seen by GI. Patient is motivated and participates in PT. No other complaints. Objective - Vital Signs/Intake and Output Vital Signs (last 24 hours): Temp Pulse Resp BP Pulse Ox 97.7 F 67 18 134/57 L 97 11/30/17 08:07 11/30/17 08:23 11/30/17 08:07 11/30/17 08:23 11/30/17 08:07 Intake and Output: 11/30/17 11/30/17 06:59 18:59 Intake Total 1100 Balance 1100 - Medications Medications: Current Medications Acetaminophen (Tylenol 325mg Tab) 650 mg PO Q6 PRN PRN Reason: Pain scale 1-10. Last Admin: 11/24/17 16:07 Dose: 650 mg Albuterol Sulfate (Albuterol 0.083% Inhal Gabriella (2.5 Mg/3 Ml) Ud) 2.5 mg INH RQ6 [facility] Last Admin: 11/30/17 07:51 Dose: 2.5 mg Amlodipine Besylate (Norvasc) 5 mg PEG DAILY [facility] Last Admin: 11/30/17 08:20 Dose: 5 mg Aspirin (Aspirin Chewable) 81 mg PEG DAILY [facility] Last Admin: 11/30/17 08:21 Dose: 81 mg Atorvastatin Calcium (Lipitor) 20 mg PEG HS [facility] Last Admin: 11/29/17 21:01 Dose: 20 mg Clopidogrel Bisulfate (Plavix) 75 mg PEG DAILY [facility] Last Admin: 11/30/17 08:21 Dose: 75 mg Dimethicone (Proshield Plus Skin Protectant) 1 applic TOP 0600,1800 [facility] Last Admin: 11/30/17 05:55 Dose: 1 applic Diphenoxylate HCl/Atropine (Lomotil 0.025-2.5 Mg Tablet) 1 tab PEG QID PRN PRN Reason: Diarrhea Last Admin: 11/26/17 23:31 Dose: 1 tab Epoetin Peterson (Procrit) 20,000 unit SC MWF [facility] Last Admin: 11/29/17 21:35 Dose: 20,000 unit Famotidine (Pepcid) 40 mg PEG HS [facility] Last Admin: 11/29/17 21:01 Dose: 40 mg Ferrous Sulfate (Feosol Liq) 300 mg PEG BID [facility] Last Admin: 11/30/17 08:21 Dose: 300 mg Hydralazine HCl (Apresoline) 25 mg PEG Q8 [facility] Last Admin: 11/30/17 05:54 Dose: 25 mg Labetalol HCl (Trandate) 100 mg PEG Q8 [facility] Last Admin: 11/30/17 05:54 Dose: 100 mg Lidocaine (Lidoderm) 1 ea TD DAILY [facility] Last Admin: 11/30/17 08:20 Dose: 1 ea Lisinopril (Zestril) 20 mg PEG DAILY [facility] Last Admin: 11/30/17 08:23 Dose: 20 mg Metformin HCl (Glucophage) 500 mg PEG BIDWM [facility] Last Admin: 11/30/17 08:21 Dose: 500 mg Sitagliptin Phosphate (Januvia) 50 mg PO DAILY [facility] Last Admin: 11/30/17 08:22 Dose: 50 mg Venlafaxine HCl (Effexor Xr) 37.5 mg PO DAILY [facility] Last Admin: 11/30/17 08:22 Dose: 37.5 mg - Labs Labs: 11/30/17 08:35 11/30/17 07:00 - Additional Findings Additional findings: - Constitutional Appears: Non-toxic, No Acute Distress - Head Exam Head Exam: ATRAUMATIC - Eye Exam Eye Exam: Normal appearance - Respiratory Exam Respiratory Exam: Clear to Auscultation Bilateral, NORMAL BREATHING PATTERN. absent: Rhonchi, Wheezes - Cardiovascular Exam Cardiovascular Exam: REGULAR RHYTHM, +S1, +S2 - GI/Abdominal Exam GI & Abdominal Exam: Soft, Normal Bowel Sounds. 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 Recovering well in rehab. Has anemia of unknown origin s/p 1 unit of prbc. plan Hematology/oncology consult appreciated. Continue with PT/OT c/w meds as ordered neuro following c/w aspirin and plavix as per neuro GI consult appreciated, follow recommendations
[2017-12-01] MEDS: Atropine-Diphenoxylate 0.025-2.5 mg Tab PEG PRN (00:55)
[2017-12-01] MEDS: Albuterol 0.083% Inhal Sol (2.5 mg/3 mL) UD INH SCH ×4 (01:49→19:07)
[2017-12-01] MEDS: Proshield Plus GEL TOP SCH ×2 (05:51→17:44)
[2017-12-01] MEDS: Venlafaxine 37.5 mg ER Cap PO SCH (09:04)
[2017-12-01] MEDS: Lidocaine 5% Patch TD SCH (09:05)
[2017-12-01] MEDS: Ferrous Sulfate 300 mg/5 mL Liq UD PEG SCH ×2 (09:05→17:43)
--- NOTE | 2017-12-01 15:13 | CP.PCM.PN ---
Subjective - Date & Time of Evaluation Date of Evaluation: 12/01/17 Time of Evaluation: 15:12 - Subjective Subjective: Mrs. Givens was seen and examined today at bedside. She had no new complaints. She continues to complain of pain at the PEG site. Objective - Vital Signs/Intake and Output Vital Signs (last 24 hours): Temp Pulse Resp BP Pulse Ox 97.5 F L 69 18 122/64 99 12/01/17 09:50 12/01/17 14:39 12/01/17 09:50 12/01/17 14:39 12/01/17 09:50 Intake and Output: 12/01/17 12/01/17 06:59 18:59 Intake Total 1070 Balance 1070 - Medications Medications: Current Medications Acetaminophen (Tylenol 325mg Tab) 650 mg PO Q6 PRN PRN Reason: Pain scale 1-10. Last Admin: 11/24/17 16:07 Dose: 650 mg Albuterol Sulfate (Albuterol 0.083% Inhal Gabriella (2.5 Mg/3 Ml) Ud) 2.5 mg INH RQ6 [facility] Last Admin: 12/01/17 13:34 Dose: 2.5 mg Amlodipine Besylate (Norvasc) 5 mg PEG DAILY [facility] Last Admin: 12/01/17 09:04 Dose: 5 mg Aspirin (Aspirin Chewable) 81 mg PEG DAILY [facility] Last Admin: 12/01/17 09:04 Dose: 81 mg Atorvastatin Calcium (Lipitor) 20 mg PEG HS [facility] Last Admin: 11/30/17 22:16 Dose: 20 mg Clopidogrel Bisulfate (Plavix) 75 mg PEG DAILY [facility] Last Admin: 12/01/17 09:04 Dose: 75 mg Dimethicone (Proshield Plus Skin Protectant) 1 applic TOP 0600,1800 [facility] Last Admin: 12/01/17 05:51 Dose: 1 applic Diphenoxylate HCl/Atropine (Lomotil 0.025-2.5 Mg Tablet) 1 tab PEG QID PRN PRN Reason: Diarrhea Last Admin: 12/01/17 00:55 Dose: 1 tab Epoetin Peterson (Procrit) 20,000 unit SC MWF [facility] Last Admin: 11/29/17 21:35 Dose: 20,000 unit Famotidine (Pepcid) 40 mg PEG HS [facility] Last Admin: 11/30/17 22:16 Dose: 40 mg Ferrous Sulfate (Feosol Liq) 300 mg PEG BID [facility] Last Admin: 12/01/17 09:05 Dose: 300 mg Hydralazine HCl (Apresoline) 25 mg PEG Q8 [facility] Last Admin: 12/01/17 14:39 Dose: 25 mg Labetalol HCl (Trandate) 100 mg PEG Q8 [facility] Last Admin: 12/01/17 14:40 Dose: 100 mg Lidocaine (Lidoderm) 1 ea TD DAILY [facility] Last Admin: 12/01/17 09:05 Dose: 1 ea Lisinopril (Zestril) 20 mg PEG DAILY [facility] Last Admin: 12/01/17 09:03 Dose: 20 mg Metformin HCl (Glucophage) 500 mg PEG BIDWM [facility] Last Admin: 12/01/17 08:04 Dose: 500 mg Sitagliptin Phosphate (Januvia) 50 mg PO DAILY [facility] Last Admin: 12/01/17 09:04 Dose: 50 mg Venlafaxine HCl (Effexor Xr) 37.5 mg PO DAILY [facility] Last Admin: 12/01/17 09:04 Dose: 37.5 mg - Labs Labs: 11/30/17 08:35 11/30/17 07:00 - Constitutional Appears: Well - Head Exam Head Exam: ATRAUMATIC, NORMAL INSPECTION, NORMOCEPHALIC - Eye Exam Eye Exam: EOMI, Normal appearance, PERRL - ENT Exam ENT Exam: Mucous Membranes Moist, Normal Exam - Neck Exam Neck Exam: Full ROM, Normal Inspection. absent: Lymphadenopathy - Respiratory Exam Respiratory Exam: Clear to Ausculation Bilateral, NORMAL BREATHING PATTERN - Cardiovascular Exam Cardiovascular Exam: REGULAR RHYTHM, +S1, +S2. absent: Murmur - Neurological Exam Neurological Exam: Awake, CN II-XII Intact Neuro motor strength exam: Left Upper Extremity: 4, Right Upper Extremity: 0, Left Lower Extremity: 4, Right Lower Extremity: 0 Additional comments: Severe productive aphasia. She has some comprehension intact. Assessment and Plan (1) CVA (cerebral vascular accident) Assessment & Plan: Continue current management and PT/OT plan. Neurology will follow. Status: Acute
--- NOTE | 2017-12-01 15:55 | CP.PCM.PN ---
Subjective - Date & Time of Evaluation Date of Evaluation: 12/01/17 Time of Evaluation: 11:00 - Subjective Subjective: Patient seen and examined this morning. No acute overnight events. Patient is motivated and participates in PT. No other complaints. Objective - Vital Signs/Intake and Output Vital Signs (last 24 hours): Temp Pulse Resp BP Pulse Ox 97.5 F L 69 18 122/64 99 12/01/17 09:50 12/01/17 14:39 12/01/17 09:50 12/01/17 14:39 12/01/17 09:50 Intake and Output: 12/01/17 12/01/17 06:59 18:59 Intake Total 1070 Balance 1070 - Medications Medications: Current Medications Acetaminophen (Tylenol 325mg Tab) 650 mg PO Q6 PRN PRN Reason: Pain scale 1-10. Last Admin: 11/24/17 16:07 Dose: 650 mg Albuterol Sulfate (Albuterol 0.083% Inhal Gabriella (2.5 Mg/3 Ml) Ud) 2.5 mg INH RQ6 [facility] OF [facility] Last Admin: 12/01/17 13:34 Dose: 2.5 mg Amlodipine Besylate (Norvasc) 5 mg PEG DAILY [facility] Last Admin: 12/01/17 09:04 Dose: 5 mg Aspirin (Aspirin Chewable) 81 mg PEG DAILY [facility] Last Admin: 12/01/17 09:04 Dose: 81 mg Atorvastatin Calcium (Lipitor) 20 mg PEG HS [facility] Last Admin: 11/30/17 22:16 Dose: 20 mg Clopidogrel Bisulfate (Plavix) 75 mg PEG DAILY [facility] Last Admin: 12/01/17 09:04 Dose: 75 mg Dimethicone (Proshield Plus Skin Protectant) 1 applic TOP 0600,1800 [facility] Last Admin: 12/01/17 05:51 Dose: 1 applic Diphenoxylate HCl/Atropine (Lomotil 0.025-2.5 Mg Tablet) 1 tab PEG QID PRN PRN Reason: Diarrhea Last Admin: 12/01/17 00:55 Dose: 1 tab Epoetin Peterson (Procrit) 20,000 unit SC MWF [facility] Last Admin: 11/29/17 21:35 Dose: 20,000 unit Famotidine (Pepcid) 40 mg PEG HS [facility] Last Admin: 11/30/17 22:16 Dose: 40 mg Ferrous Sulfate (Feosol Liq) 300 mg PEG BID [facility] Last Admin: 12/01/17 09:05 Dose: 300 mg Hydralazine HCl (Apresoline) 25 mg PEG Q8 [facility] Last Admin: 12/01/17 14:39 Dose: 25 mg Labetalol HCl (Trandate) 100 mg PEG Q8 [facility] Last Admin: 12/01/17 14:40 Dose: 100 mg Lidocaine (Lidoderm) 1 ea TD DAILY [facility] Last Admin: 12/01/17 09:05 Dose: 1 ea Lisinopril (Zestril) 20 mg PEG DAILY [facility] Last Admin: 12/01/17 09:03 Dose: 20 mg Metformin HCl (Glucophage) 500 mg PEG BIDWM [facility] Last Admin: 12/01/17 08:04 Dose: 500 mg Sitagliptin Phosphate (Januvia) 50 mg PO DAILY [facility] Last Admin: 12/01/17 09:04 Dose: 50 mg Venlafaxine HCl (Effexor Xr) 37.5 mg PO DAILY [facility] Last Admin: 12/01/17 09:04 Dose: 37.5 mg - Labs Labs: 11/30/17 08:35 11/30/17 07:00 - Additional Findings Additional findings: - Constitutional Appears: Non-toxic, No Acute Distress - Head Exam Head Exam: ATRAUMATIC - Eye Exam Eye Exam: Normal appearance - Respiratory Exam Respiratory Exam: Clear to Auscultation Bilateral, NORMAL BREATHING PATTERN. absent: Rhonchi, Wheezes - Cardiovascular Exam Cardiovascular Exam: REGULAR RHYTHM, +S1, +S2 - GI/Abdominal Exam GI & Abdominal Exam: Soft, Normal Bowel Sounds. absent: Tenderness - Neurological Exam Neurological Exam: Alert, Awake - Skin Skin Exam: Normal Color, Warm Assessment and Plan - Assessment and Plan (Free Text) Assessment: 66 y/o female admitted to rehab after an acute CVA involving the left posterol ateral basal ganglia. Recovering well in rehab. Has anemia of unknown origin s/p 1 unit of prbc. plan Hematology/oncology consult appreciated. Continue with PT/OT c/w meds as ordered neuro following c/w aspirin and plavix as per neuro GI consult appreciated, follow recommendations labs in AM
[2017-12-02] MEDS: Albuterol 0.083% Inhal Sol (2.5 mg/3 mL) UD INH SCH ×4 (01:56→19:13)
[2017-12-02] MEDS: Proshield Plus GEL TOP SCH ×2 (06:08→17:46)
[2017-12-02 06:37] LABS: BASO # 0.1 K/uL (0.0-0.2); BASO % 0.6 % (0.0-2.0); EOS # 0.4 K/uL (0.0-0.7); EOS % 4.5 % (0.0-4.0); HEMOGLOBIN 9.4 g/dL (12.0-16.0); LYMPH # 0.6 K/uL (1.0-4.3); LYMPH % 7.3 % (20.0-40.0); MEAN CELL VOLUME 96.5 fl (81.0-99.0); MEAN CORPUSCULAR HEMOGLOBIN 32.2 pg (27.0-31.0); MEAN CORPUSCULAR HGB CONC 33.3 g/dL (33.0-37.0); MONO # 0.9 K/uL (0.0-0.8); MONO % 10.1 % (0.0-10.0); NEUT # 6.6 K/uL (1.8-7.0); NEUT % 77.5 % (50.0-75.0); NRBC % 0.2 % (0.0-0.0); PLATELET COUNT 407 K/uL (130-400); RBC 2.93 Mil/uL (3.80-5.20); RED CELL DISTRIBUTION WIDTH 14.8 % (11.5-14.5); WHITE BLOOD COUNT 8.5 K/uL (4.8-10.8)
[2017-12-02 07:38] LABS: CALCIUM 9.3 mg/dL (8.4-10.2)
[2017-12-02] MEDS: Ferrous Sulfate 300 mg/5 mL Liq UD PEG SCH ×2 (08:55→17:39)
[2017-12-02] MEDS: Lidocaine 5% Patch TD SCH (08:56)
[2017-12-02] MEDS: Venlafaxine 37.5 mg ER Cap PO SCH (08:56)
[2017-12-02] MEDS: Epoetin Alfa 20000 UNIT/ML Inj SC SCH (08:58)
--- NOTE | 2017-12-02 09:26 | CP.PCM.PN ---
Subjective - Date & Time of Evaluation Date of Evaluation: 12/02/17 Time of Evaluation: 09:24 - Subjective Subjective: Pt's Hgb has finally gone uo to 9.4gms. She seems better able to do her PT. Will continue to give her procrit Objective - Vital Signs/Intake and Output Vital Signs (last 24 hours): Temp Pulse Resp BP Pulse Ox 98.4 F 65 20 131/65 99 12/01/17 21:20 12/02/17 08:55 12/01/17 21:20 12/02/17 08:55 12/01/17 21:20 Intake and Output: 12/02/17 12/02/17 06:59 18:59 Intake Total 1070 Balance 1070 - Medications Medications: Current Medications Acetaminophen (Tylenol 325mg Tab) 650 mg PO Q6 PRN PRN Reason: Pain scale 1-10. Last Admin: 11/24/17 16:07 Dose: 650 mg Albuterol Sulfate (Albuterol 0.083% Inhal Gabriella (2.5 Mg/3 Ml) Ud) 2.5 mg INH RQ6 [facility] Last Admin: 12/02/17 07:26 Dose: 2.5 mg Amlodipine Besylate (Norvasc) 5 mg PEG DAILY [facility] Last Admin: 12/02/17 08:55 Dose: 5 mg Aspirin (Aspirin Chewable) 81 mg PEG DAILY [facility] Last Admin: 12/02/17 08:56 Dose: 81 mg Atorvastatin Calcium (Lipitor) 20 mg PEG HS [facility] Last Admin: 12/01/17 21:07 Dose: 20 mg Clopidogrel Bisulfate (Plavix) 75 mg PEG DAILY [facility] Last Admin: 12/02/17 08:56 Dose: 75 mg Dimethicone (Proshield Plus Skin Protectant) 1 applic TOP 0600,1800 [facility] Last Admin: 12/02/17 06:08 Dose: 1 applic Diphenoxylate HCl/Atropine (Lomotil 0.025-2.5 Mg Tablet) 1 tab PEG QID PRN PRN Reason: Diarrhea Last Admin: 12/01/17 00:55 Dose: 1 tab Epoetin Peterson (Procrit) 20,000 unit SC MWF [facility] Last Admin: 12/02/17 08:58 Dose: 20,000 unit Famotidine (Pepcid) 40 mg PEG HS [facility] Last Admin: 12/01/17 21:07 Dose: 40 mg Ferrous Sulfate (Feosol Liq) 300 mg PEG BID [facility] Last Admin: 12/02/17 08:55 Dose: 300 mg Hydralazine HCl (Apresoline) 25 mg PEG Q8 [facility] Last Admin: 12/02/17 05:35 Dose: 25 mg Labetalol HCl (Trandate) 100 mg PEG Q8 [facility] Last Admin: 12/02/17 05:35 Dose: 100 mg Lidocaine (Lidoderm) 1 ea TD DAILY [facility] Last Admin: 12/02/17 08:56 Dose: 1 ea Lisinopril (Zestril) 20 mg PEG DAILY [facility] Last Admin: 12/02/17 08:54 Dose: 20 mg Metformin HCl (Glucophage) 500 mg PEG BIDWM [facility] Last Admin: 12/02/17 08:54 Dose: 500 mg Sitagliptin Phosphate (Januvia) 50 mg PO DAILY [facility] Last Admin: 12/02/17 08:54 Dose: 50 mg Venlafaxine HCl (Effexor Xr) 37.5 mg PO DAILY [facility] Last Admin: 12/02/17 08:56 Dose: 37.5 mg - Labs Labs: 12/02/17 05:25 12/02/17 07:31
[2017-12-02 11:12] LABS: LYMPHOCYTE 9 % (20-50); MONOCYTE 8 % (0-10); NEUTROPHIL 83 % (42-75); PLATELET ESTIMATE SLIGHTLY INCREASED (NORMAL); TOTAL CELLS COUNTED 100
[2017-12-02 11:13] LABS: HYPOCHROMIC SLIGHT
[2017-12-02 11:14] LABS: LARGE PLATELETS PRESENT
--- NOTE | 2017-12-02 12:26 | CP.PCM.PN ---
Subjective - Date & Time of Evaluation Date of Evaluation: 12/02/17 Time of Evaluation: 11:00 - Subjective Subjective: Patient seen and examined this morning. Tolerating PO well. No acute overnight events. Seen by hematology in AM. Patient is motivated and participates in PT. No other complaints. Objective - Vital Signs/Intake and Output Vital Signs (last 24 hours): Temp Pulse Resp BP Pulse Ox 97.5 F L 65 18 131/65 97 12/02/17 09:36 12/02/17 09:36 12/02/17 09:36 12/02/17 09:36 12/02/17 09:36 Intake and Output: 12/02/17 12/02/17 06:59 18:59 Intake Total 1070 Balance 1070 - Medications Medications: Current Medications Acetaminophen (Tylenol 325mg Tab) 650 mg PO Q6 PRN PRN Reason: Pain scale 1-10. Last Admin: 11/24/17 16:07 Dose: 650 mg Albuterol Sulfate (Albuterol 0.083% Inhal Gabriella (2.5 Mg/3 Ml) Ud) 2.5 mg INH RQ6 [facility] Last Admin: 12/02/17 07:26 Dose: 2.5 mg Amlodipine Besylate (Norvasc) 5 mg PEG DAILY [facility] Last Admin: 12/02/17 08:55 Dose: 5 mg Aspirin (Aspirin Chewable) 81 mg PEG DAILY [facility] Last Admin: 12/02/17 08:56 Dose: 81 mg Atorvastatin Calcium (Lipitor) 20 mg PEG HS [facility] Last Admin: 12/01/17 21:07 Dose: 20 mg Clopidogrel Bisulfate (Plavix) 75 mg PEG DAILY [facility] Last Admin: 12/02/17 08:56 Dose: 75 mg Dimethicone (Proshield Plus Skin Protectant) 1 applic TOP 0600,1800 [facility] Last Admin: 12/02/17 06:08 Dose: 1 applic Diphenoxylate HCl/Atropine (Lomotil 0.025-2.5 Mg Tablet) 1 tab PEG QID PRN PRN Reason: Diarrhea Last Admin: 12/01/17 00:55 Dose: 1 tab Epoetin Peterson (Procrit) 20,000 unit SC MWF [facility] Last Admin: 12/02/17 08:58 Dose: 20,000 unit Famotidine (Pepcid) 40 mg PEG HS [facility] Last Admin: 12/01/17 21:07 Dose: 40 mg Ferrous Sulfate (Feosol Liq) 300 mg PEG BID [facility] Last Admin: 12/02/17 08:55 Dose: 300 mg Hydralazine HCl (Apresoline) 25 mg PEG Q8 [facility] Last Admin: 12/02/17 05:35 Dose: 25 mg Labetalol HCl (Trandate) 100 mg PEG Q8 [facility] Last Admin: 12/02/17 05:35 Dose: 100 mg Lidocaine (Lidoderm) 1 ea TD DAILY [facility] Last Admin: 12/02/17 08:56 Dose: 1 ea Lisinopril (Zestril) 20 mg PEG DAILY [facility] Last Admin: 12/02/17 08:54 Dose: 20 mg Metformin HCl (Glucophage) 500 mg PEG BIDWM [facility] Last Admin: 12/02/17 08:54 Dose: 500 mg Sitagliptin Phosphate (Januvia) 50 mg PO DAILY [facility] Last Admin: 12/02/17 08:54 Dose: 50 mg Venlafaxine HCl (Effexor Xr) 37.5 mg PO DAILY [facility] Last Admin: 12/02/17 08:56 Dose: 37.5 mg - Labs Labs: 12/02/17 05:25 12/02/17 07:31 - Additional Findings Additional findings: - Constitutional Appears: Non-toxic, No Acute Distress - Head Exam Head Exam: ATRAUMATIC - Eye Exam Eye Exam: Normal appearance - Respiratory Exam Respiratory Exam: Clear to Auscultation Bilateral, NORMAL BREATHING PATTERN. absent: Rhonchi, Wheezes - Cardiovascular Exam Cardiovascular Exam: REGULAR RHYTHM, +S1, +S2 - GI/Abdominal Exam GI & Abdominal Exam: Soft, Normal Bowel Sounds. 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 Recovering well in rehab. Has anemia of unknown origin s/p 1 unit of prbc. plan Hematology/oncology following Continue with PT/OT c/w meds as ordered neuro following c/w aspirin and plavix as per neuro GI consult appreciated, follow recommendations
[2017-12-03] MEDS: Albuterol 0.083% Inhal Sol (2.5 mg/3 mL) UD INH SCH ×4 (01:02→19:39)
[2017-12-03] MEDS: Proshield Plus GEL TOP SCH ×2 (06:45→17:08)
[2017-12-03] MEDS: Venlafaxine 37.5 mg ER Cap PO SCH ×2 (08:05→13:26)
[2017-12-03] MEDS: Ferrous Sulfate 300 mg/5 mL Liq UD PEG SCH ×2 (08:06→17:08)
[2017-12-03] MEDS: Lidocaine 5% Patch TD SCH (08:06)
--- NOTE | 2017-12-03 10:27 | CP.PCM.PN ---
Subjective - Date & Time of Evaluation Date of Evaluation: 12/03/17 Time of Evaluation: 08:45 - Subjective Subjective: Patient seen and examined this AM with Dr. Wood. No acute overnight events. Patient is motivated and participates in PT. Tolerating PO. No other complaints. Objective - Vital Signs/Intake and Output Vital Signs (last 24 hours): Temp Pulse Resp BP Pulse Ox 97.9 F 66 18 136/60 98 12/03/17 09:00 12/03/17 09:00 12/03/17 09:00 12/03/17 09:00 12/03/17 08:02 Intake and Output: 12/03/17 12/03/17 06:59 18:59 Intake Total 1070 Balance 1070 - Medications Medications: Current Medications Acetaminophen (Tylenol 325mg Tab) 650 mg PO Q6 PRN PRN Reason: Pain scale 1-10. Last Admin: 11/24/17 16:07 Dose: 650 mg Albuterol Sulfate (Albuterol 0.083% Inhal Gabriella (2.5 Mg/3 Ml) Ud) 2.5 mg INH RQ6 [facility] Last Admin: 12/03/17 07:28 Dose: 2.5 mg Amlodipine Besylate (Norvasc) 5 mg PEG DAILY [facility] Last Admin: 12/03/17 08:07 Dose: 5 mg Aspirin (Aspirin Chewable) 81 mg PEG DAILY [facility] Last Admin: 12/03/17 08:03 Dose: 81 mg Atorvastatin Calcium (Lipitor) 20 mg PEG HS [facility] Last Admin: 12/02/17 21:33 Dose: 20 mg Clopidogrel Bisulfate (Plavix) 75 mg PEG DAILY [facility] Last Admin: 12/03/17 08:09 Dose: 75 mg Dimethicone (Proshield Plus Skin Protectant) 1 applic TOP 0600,1800 [facility] Last Admin: 12/03/17 06:45 Dose: 1 applic Diphenoxylate HCl/Atropine (Lomotil 0.025-2.5 Mg Tablet) 1 tab PEG QID PRN PRN Reason: Diarrhea Last Admin: 12/01/17 00:55 Dose: 1 tab Epoetin Peterson (Procrit) 20,000 unit SC MWF [facility] Last Admin: 12/02/17 08:58 Dose: 20,000 unit Famotidine (Pepcid) 40 mg PEG HS [facility] Last Admin: 12/02/17 21:34 Dose: 40 mg Ferrous Sulfate (Feosol Liq) 300 mg PEG BID [facility] Last Admin: 12/03/17 08:06 Dose: 300 mg Hydralazine HCl (Apresoline) 25 mg PEG Q8 [facility] Last Admin: 12/03/17 06:44 Dose: 25 mg Labetalol HCl (Trandate) 100 mg PEG Q8 [facility] Last Admin: 12/03/17 06:45 Dose: 100 mg Lidocaine (Lidoderm) 1 ea TD DAILY [facility] Last Admin: 12/03/17 08:06 Dose: 1 ea Lisinopril (Zestril) 20 mg PEG DAILY [facility] Last Admin: 12/03/17 08:08 Dose: 20 mg Metformin HCl (Glucophage) 500 mg PEG BIDWM [facility] Last Admin: 12/03/17 08:03 Dose: 500 mg Sitagliptin Phosphate (Januvia) 50 mg PO DAILY [facility] Last Admin: 12/03/17 08:07 Dose: 50 mg Venlafaxine HCl (Effexor Xr) 37.5 mg PO DAILY [facility] Last Admin: 12/02/17 08:56 Dose: 37.5 mg - Labs Labs: 12/02/17 05:25 12/02/17 07:31 - Additional Findings Additional findings: - Constitutional Appears: Non-toxic, No Acute Distress - Head Exam Head Exam: ATRAUMATIC - Eye Exam Eye Exam: Normal appearance - Respiratory Exam Respiratory Exam: Clear to Auscultation Bilateral, NORMAL BREATHING PATTERN. absent: Rhonchi, Wheezes - Cardiovascular Exam Cardiovascular Exam: REGULAR RHYTHM, +S1, +S2 - GI/Abdominal Exam GI & Abdominal Exam: Soft, Normal Bowel Sounds. 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 Recovering well in rehab. Has anemia of unknown or igin s/p 1 unit of prbc. plan Hematology/oncology following Continue with PT/OT c/w meds as ordered neuro following c/w aspirin and plavix as per neuro GI consult appreciated, follow recommendations AM labs d/w Dr. Israel Flores, [id number]
[2017-12-03 10:40] LABS: HEMOGLOBIN 9.1 g/dL (12.0-16.0); MEAN CELL VOLUME 95.1 fl (81.0-99.0); MEAN CORPUSCULAR HEMOGLOBIN 32.5 pg (27.0-31.0); MEAN CORPUSCULAR HGB CONC 34.2 g/dL (33.0-37.0); RBC 2.8 Mil/uL (3.80-5.20); RED CELL DISTRIBUTION WIDTH 15.2 % (11.5-14.5); WHITE BLOOD COUNT 8.8 K/uL (4.8-10.8)
--- NOTE | 2017-12-03 13:14 | PSY.TMCNF ---
Nursing - Vital Signs Vital Signs (Last 8 hours): Vital Signs 12/03/17 12/03/17 12/03/17 06:44 08:02 08:07 Temperature 97.9 F Pulse Rate 71 66 66 Respiratory 18 Rate Blood Pressure 145/66 136/60 136/60 O2 Sat by Pulse 98 Oximetry 12/03/17 12/03/17 08:08 09:00 Temperature 97.9 F Pulse Rate 66 66 Respiratory 18 Rate Blood Pressure 136/60 136/60 O2 Sat by Pulse Oximetry Pain: 0 - Precautions: Precautions: Fall Prevention, Aspiration - Medications/Other Issues Comment: -on Procrit 20,000 units MWF for anemia. -Aphasic. -Peg tube - Consults Comment: Dr. Cage - Neurology. Dr. Serjio Varma - Hematology. Dr. Michelle - Physiatry. Dr. Morgan - Podiatry - Skin Incision Line Treatment: (+) MASD ON PERINEAL AREA, LEFT BUTTOCK EXCORIATED. - Wound Upper Medial Thigh Wound Type: Moisture Associated Skin Damage Wound Stage: STAGE II Wound Shape: Irregular Wound Bed Greatest Portion: Red (Granulation) Wound Bed Lesser Portion: Red (Granulation) Periwound: Reddened Wound General Appearance: Open to air, Reddened Wound Dressing Status: Open to air Left Buttock Wound Type: Moisture Associated Skin Damage Wound Stage: STAGE II Wound Shape: Irregular Tunneling: No Undermining: No Wound Bed Greatest Portion: Red (Granulation) Wound Bed Lesser Portion: Pale [place] Periwound: Excoriated Wound Drainage Amount: None Wound General Appearance: Open to air, Clean/Dry Wound Dressing Status: Open to air Dressing Changed: No Wound Primary Dressing Type: Open to air - Toileting Toileting: Dependent - Bladder Management Bladder Pattern: Normal, Incontinent Voiding Method: Bedpan, Diaper Bladder Management: Maximal Assistance - Bowel Management Bowel Pattern: Normal, Incontinent Bowel Management: Dependent - Transfers Transfers: Maximal Assistance - ADL's ADL's: Maximal Assistance - Pain Management Comments: On Tylenol but hasn't been complaining of pain - Patient/Family Teaching Comments: Aspiration precuations; Medication; Pressure ulcer prevention - Goals/Time Frame Comments: Until discharge or next team conference. - Provider Provider: Mayi Etienne RN Physical Therapy - Bed Mobility Bed Mobility: Maximum Assistance - Transfers Wheelchair to Mat: Maximum Assistance Sit to Stand: Moderate Assistance, Maximum Assistance - Ambulation Level of Assistance: Maximum Assistance, Dependent Distance (ft.): 3 Orthoses: RUE GivMohr sling. RLE dorsiflexor assist MEDINA Wrap Comment: L sided wallbar - Stair Negotiation Stairs: Level of Assistance: Not Tested - Standing Balance Static Stand: Maximal Assistance Dynamic Stand: Unable to assess/perform - Pain Pain (assessed during therapy session): 0 Comment: none reported today - Insight/Carryover Insight/Carryover: Fair - Patient/Family Education Comment: -rehab/OT future goals, plan of care. -self ROM/clasped method--further training needed. -bed/w/c positioning/RUE positioning. -E-stim to RUE to increase strength/motor control. -endurance, strength, balance, ROM activities. -w/c management/propulsion using LUE to push/LLE to steer - Assessment/Plan Assessment: Pt is a 66 year old female with dx: acute CVA. with RUE weakness. *Precautions: aspiration precautions, fall precautions, cardiac, *old L sided weakness from old CVA(3 years ago). Pt limited by the following: -impaired head/trunk control. -overstretch weakness, +shortening of L neck muscles/anterior. -impaired LUE strength from old CVA--residual weakness. - impaired RUE/RLE motor control--no active ROM noted. -impaired endurance/activity tolerance and overall strength. -impaired safety awareness--which impact on function/safety in self care, functional transfers/mobility. Pt will continue skilled Occupational Therapy to address above impairments to maxmize function/safety awareness.Pt continues to be motivated to engage on therapy tasks. Pt demonstrates increased R elbow flexion/extension, R shoulder elevation along with improved head/trunk control with verbal/tactile cues. Pt needs intermittent rest breaks with above tasks. Pt with functional cognitive functions thus able to attend follow commands and carryover for therapeutic tasks--within physical limitations. Pt needs extensive comprehensive rehab beacuse of extent/severity of physical impairments related to CVA & comorbidities. Pt continues to fully engage in therapeutic tasks with frequent rest breaks. *Pt will certianly need H[facility]GER after acute rehab stay to improve balance/strength, head/trunk control, improve RUE strength/ROM as needed to maxmize overall function. *Goal: Min assist and verbal cues for adls, transfers/mobility with in 6 weeks - Goals Timeframe: 1 week Goals: -UPPER BODY DRESSING: Moderate assist and verbal cues with kiley-techniques--dressing RUE firts. -LOWER BODY DRESSING: max assist & verbal cues long seated in bed with assistiive device prn. -HAED/TRUNK CONTROL:Pt demonstrate fair haed/trunk control as needed to complete grooming/upper dressing tasks with modertae assist and verbal cues. -STATIC SITTING: unsupported with minimal assist and verbal cues with LUE support as needed for adls/transfers/mobility. -SUPINE<->SIT: moderate assist and verbal cues with use of bedrails. -ROLL to R side; Moderate assist and verbal cues with use of bedrails, ROLL to L Side: Min assist and verbal cues with use of bedrails. -RUE strength: Increase RUE strength to 2/5 throughout + for use as stabilizer during adls. functional transfers. -TRANFERS:<->bed, commode, w/c towards L side with moderate assist and verbal cues. -GROOMING: Min assist and verbal cues seated - Provider License Number: [id number] Occupational Therapy - Arousal/Attention/Orientation Patient Orientation: Person, Place - ADL/IADL Self Feeding: Maximum Assistance Grooming: Moderate Assistance Bathing-Upper Extremity: Maximum Assistance Bathing-Lower Extremity: Maximum Assistance Dressing-Upper Extremity: Maximum Assistance Dressing-Lower Extremity: Maximum Assistance - Sitting Balance Static Sitting: Contact Guard Assist Dynamic Sitting: Minimal Assistance, Moderate Assistance Comment: seated unsupported - Transfers Wheelchair to Bed Transfers: Moderate Assistance, Maximum Assistance Toilet Transfers: Maximum Assistance - Wheelchair Management Level of Assistance: Verbal Cues, Set-up Help, Minimal Assistance, Moderate Assistance Distance (ft.): 25 - Upper Extremity Status Right Upper Extremity Comment: PROM is WFLS, but impaired overall strength/motor control. elbow flexion/extension 2-/5 Left Upper Extremity Comment: AROM in LUE WFLS except L shoulder flex/abd--1/2 range - Pain Pain (assessed during therapy session): 0 Comment: none reported today - Insight/Carryover Insight/Carryover: Fair - Patient/Family Education Comment: -rehab/OT future goals, plan of care. -self ROM/clasped method--further training needed. -bed/w/c positioning/RUE positioning. -E-stim to RUE to increase strength/motor control. -endurance, strength, balance, ROM activities. -w/c management/propulsion using LUE to push/LLE to steer - Assessment/Plan Assessment: Pt is a 66 year old female with dx: acute CVA. with RUE weakness. *Precautions: aspiration precautions, fall precautions, cardiac, *old L sided weakness from old CVA(3 years ago). Pt limited by the following: -impaired head/trunk control. -overstretch weakness, +shortening of L neck muscles/anterior. -impaired LUE strength from old CVA--residual weakness. - impaired RUE/RLE motor control--no active ROM noted. -impaired endurance/activity tolerance and overall strength. -impaired safety awareness--which impact on function/safety in self care, functional transfers/mo bility. Pt will continue skilled Occupational Therapy to address above impairments to maxmize function/safety awareness.Pt continues to be motivated to engage on therapy tasks. Pt demonstrates increased R elbow flexion/extension, R shoulder elevation along with improved head/trunk control with verbal/tactile cues. Pt needs intermittent rest breaks with above tasks. Pt with functional cognitive functions thus able to attend follow commands and carryover for therapeutic tasks--within physical limitations. Pt needs extensive comprehensive rehab beacuse of extent/severity of physical impairments related to CVA & comorbidities. Pt continues to fully engage in therapeutic tasks with frequent rest breaks. *Pt will certianly need HOLGER after acute rehab stay to improve balance/strength, head/trunk control, improve RUE strength/ROM as needed to maxmize overall function. *Goal: Min assist and verbal cues for adls, transfers/mobility with in 6 weeks - Goals Timeframe: 1 week Goals: -UPPER BODY DRESSING: Moderate assist and verbal cues with kiley-techniques--dressing RUE firts. -LOWER BODY DRESSING: max assist & verbal cues long seated in bed with assistiive device prn. -HAED/TRUNK CONTROL:Pt demonstrate fair haed/trunk control as needed to complete grooming/upper dressing tasks with modertae assist and verbal cues. -STATIC SITTING: unsupported with minimal assist and verbal cues with LUE support as needed for adls/transfers/mobility. -SUPINE<->SIT: moderate assist and verbal cues with use of bedrails. -ROLL to R side; Moderate assist and verbal cues with use of bedrails, ROLL to L Side: Min assist and verbal cues with use of bedrails. -RUE strength: Increase RUE strength to 2/5 throughout + for use as stabilizer during adls. functional transfers. -TRANFERS:<->bed, commode, w/c towards L side with moderate assist and verbal cues. -GROOMING: Min assist and verbal cues seated - Provider Therapist: Lea Valera OTR/L License Number: [id number] Speech Therapy - Consult Information Patient on Program: Yes Medical Diagnosis: CVA Treatment Diagnosis: -mod-severe oral dysphagia, mild pharyngeal dysphagia. - severe dysarthria/apraxia of speech - Assessment Speech/Articulation Impairment: Severe Dysphagia/Swallowing Impairment: Severe Comment: mod-severe - Plan Assessment: Pt is a 66 year old female with dx: acute CVA. with RUE weakness. *Precautions: aspiration precautions, fall precautions, cardiac, *old L sided weakness from old CVA(3 years ago). Pt limited by the following: -impaired head/trunk control. -overstretch weakness, +shortening of L neck muscles/anterior. -impaired LUE strength from old CVA--residual weakness. - impaired RUE/RLE motor control--no active ROM noted. -impaired endurance/activity tolerance and overall strength. -impaired safety awareness--which impact on function/safety in self care, functional transfers/mobility. Pt will continue skilled Occupational Therapy to address above impairments to maxmize function/safety awareness.Pt continues to be motivated to engage on therapy tasks. Pt demonstrates increased R elbow flexion/extension, R shoulder elevation along with improved head/trunk control with verbal/tactile cues. Pt needs intermittent rest breaks with above tasks. Pt with functional cognitive functions thus able to attend follow commands and carryover for therapeutic tasks--within physical limitations. Pt needs extensive comprehensive rehab beacuse of extent/severity of physical impairments related to CVA & comorbidities. Pt continues to fully engage in therapeutic tasks with frequent rest breaks. *Pt will certianly need HOLGER after acute rehab stay to improve balance/strength, head/trunk control, improve RUE strength/ROM as needed to maxmize overall function. *Goal: Min assist and verbal cues for adls, transfers/mobility with in 6 weeks Plan: Continue Dysphagia Therapy, Continue Speech/Language Therapy - Provider Therapist: Latha Medina License Number: [id number] Recreational Therapy - Participation Participation: Participates in Individual and/or Group Sessions - Attendance Attendance: 3-5 times per week - Activities Leisure Activities: Cards and Games - Socialization Level of Socialization: Requires 1:1 guidance to respond, Minimal initiation of interaction to request basic needs, Minimal or no response, Socialization severely limited - Diversional Time Diversional Time: television, cards, dominoes - Assessment Assessment/Plan: Pt is a 66 year old female with dx: acute CVA. with RUE weakness. *Precautions: aspiration precautions, fall precautions, cardiac, *old L sided weakness from old CVA(3 years ago). Pt limited by the following: -imp aired head/trunk control. -overstretch weakness, +shortening of L neck muscles/anterior. -impaired LUE strength from old CVA--residual weakness. - impaired RUE/RLE motor control--no active ROM noted. -impaired endurance/activity tolerance and overall strength. -impaired safety awareness--which impact on function/safety in self care, functional transfers/mobility. Pt will continue skilled Occupational Therapy to address above impairments to maxmize function/safety awareness.Pt continues to be motivated to engage on therapy tasks. Pt demonstrates increased R elbow flexion/extension, R shoulder elevation along with improved head/trunk control with verbal/tactile cues. Pt needs intermittent rest breaks with above tasks. Pt with functional cognitive functions thus able to attend follow commands and carryover for therapeutic tasks--within physical limitations. Pt needs extensive comprehensive rehab beacuse of extent/severity of physical impairments related to CVA & comorbidities. Pt continues to fully engage in therapeutic tasks with frequent rest breaks. *Pt will certianly need HOLGER after acute rehab stay to improve balance/strength, head/trunk control, improve RUE strength/ROM as needed to maxmize overall function. *Goal: Min assist and verbal cues for adls, transfers/mobility with in 6 weeks - Provider Therapist: Brittany Griffith, HYDRAULIC STRAINER OPERATOR #[id number] Nutrition - Current Diet Current Diet/ Supplement/ Feedings: pureed honey thick liquids moderate consistent CHO pleasure feed by teaspoon Jevity 1.2 @ 70 mL/hr [id number] with 150 mL free water every 8 hours - Appetite Percent Meal Consumed: Less than 25% - Comments Comments: Aspiration precuations; Medication; Pressure ulcer prevention - Assessment/Goals/Time Frame Assessment/Goals/Time Frame: -on Procrit 20,000 units MWF for anemia. -Aphasic. -Peg tube - Provider Provider: Marilyn Casillas RD Case Management - Psychosocial Assessment Support Systems: Supportive friends : Ghazala/Luis (friends)- [phone]. Christiano Juarez (aunt)- [phone] who lives in [place] Psychological Interventions/Needs: Patient is alert with expressive aphasia, patient is able to nod "yes" and "no" appropriately.Prior to admission Patient was living alone in an apartment building with elevator access [employer]ENDING ROUTE SERVICER. Per patient's friend Ghazala, patient was completely independent VENDING ROUTE SERVICER although she had some premorbid L sided weakness from previous CVA. Patient was using SPC occasionally for community negotiation. Discharge Concerns: Limited Support at home, +PEG feeding, max A for all functional mobility Patient/Family Meeting: CM and Rehab team met with patient at [facility] and discusssed progress,goal attainment and discharge plan/authorization from [employer]. Intervention/Goal/Outcome:: 1. Discharge planning: CM spoke with landlord/lamp developer, place of employment, and friends/family. Patient with very limited support at home, unsafe for discharge home, and with outstanding rent payments dating back several months. CM discussed discharge options at length with patient explained the limited options currently available as patient is significantly impaired from CVA. Patient in agreement with [facility] at [facility] into LTC- CM inquired about giving consent to accessing bank accounts for Medicaid application- patient nodded in agreement. CM to initiate referral process, complete EARC-PAS and auth from [employer]. 2. Tentative discharge date: 11/29. 3. continued emotional support - Discharge Plan Discharge Plan: Subacute care, [facility] care - Provider Provider: ULYSSES Manriquez, SEWAGE PLANT OPERATOR License Number: [id number] Rehabilitation Plan - Treatment Plan Treatment Plan: Physical Therapy, Occupational Therapy, Speech, Dietary, Patient/Family Education - Discharge Plan Discharge to: Subacute
--- NOTE | 2017-12-03 13:26 | CP.PCM.PN ---
Subjective - Date & Time of Evaluation Date of Evaluation: 12/03/17 Time of Evaluation: 13:22 - Subjective Subjective: Patient seen in the room NAD getting a nebulizer treatment pending d/c to HOLGER but Dr Varma wants an increase to Hgb I have started Oxandrin to increase appetite, strength and endurance Objective - Vital Signs/Intake and Output Vital Signs (last 24 hours): Temp Pulse Resp BP Pulse Ox 97.9 F 66 18 136/60 98 12/03/17 09:00 12/03/17 09:00 12/03/17 09:00 12/03/17 09:00 12/03/17 08:02 Intake and Output: 12/03/17 12/03/17 06:59 18:59 Intake Total 1070 Balance 1070 - Medications Medications: Current Medications Acetaminophen (Tylenol 325mg Tab) 650 mg PO Q6 PRN PRN Reason: Pain scale 1-10. Last Admin: 11/24/17 16:07 Dose: 650 mg Albuterol Sulfate (Albuterol 0.083% Inhal Gabriella (2.5 Mg/3 Ml) Ud) 2.5 mg INH RQ6 [facility] Last Admin: 12/03/17 13:19 Dose: 2.5 mg Amlodipine Besylate (Norvasc) 5 mg PEG DAILY [facility] Last Admin: 12/03/17 08:07 Dose: 5 mg Aspirin (Aspirin Chewable) 81 mg PEG DAILY [facility] Last Admin: 12/03/17 08:03 Dose: 81 mg Atorvastatin Calcium (Lipitor) 20 mg PEG HS [facility] Last Admin: 12/02/17 21:33 Dose: 20 mg Clopidogrel Bisulfate (Plavix) 75 mg PEG DAILY [facility] Last Admin: 12/03/17 08:09 Dose: 75 mg Dimethicone (Proshield Plus Skin Protectant) 1 applic TOP 0600,1800 [facility] Last Admin: 12/03/17 06:45 Dose: 1 applic Diphenoxylate HCl/Atropine (Lomotil 0.025-2.5 Mg Tablet) 1 tab PEG QID PRN PRN Reason: Diarrhea Last Admin: 12/01/17 00:55 Dose: 1 tab Epoetin Peterson (Procrit) 20,000 unit SC MWF [facility] Last Admin: 12/02/17 08:58 Dose: 20,000 unit Famotidine (Pepcid) 40 mg PEG HS [facility] Last Admin: 12/02/17 21:34 Dose: 40 mg Ferrous Sulfate (Feosol Liq) 300 mg PEG BID [facility] Last Admin: 12/03/17 08:06 Dose: 300 mg Hydralazine HCl (Apresoline) 25 mg PEG Q8 [facility] Last Admin: 12/03/17 06:44 Dose: 25 mg Labetalol HCl (Trandate) 100 mg PEG Q8 [facility] Last Admin: 12/03/17 06:45 Dose: 100 mg Lidocaine (Lidoderm) 1 ea TD DAILY [facility] Last Admin: 12/03/17 08:06 Dose: 1 ea Lisinopril (Zestril) 20 mg PEG DAILY [facility] Last Admin: 12/03/17 08:08 Dose: 20 mg Metformin HCl (Glucophage) 500 mg PEG BIDWM [facility] Last Admin: 12/03/17 08:03 Dose: 500 mg Oxandrolone (Oxandrin) 10 mg PO DAILY [facility] Sitagliptin Phosphate (Januvia) 50 mg PO DAILY [facility] Last Admin: 12/03/17 08:07 Dose: 50 mg Venlafaxine HCl (Effexor Xr) 37.5 mg PO DAILY [facility] Last Admin: 12/02/17 08:56 Dose: 37.5 mg - Labs Labs: 12/03/17 10:31 12/02/17 07:31
--- NOTE | 2017-12-03 16:00 | CP.PCM.PN ---
Subjective - Date & Time of Evaluation Date of Evaluation: 12/03/17 Time of Evaluation: 15:53 - Subjective Subjective: Mrs. Givens was seen and examined today as she sat in her chair. She had no new complaints. There were no recent acute events reported. Objective - Vital Signs/Intake and Output Vital Signs (last 24 hours): Temp Pulse Resp BP Pulse Ox 97.9 F 69 18 134/54 L 98 12/03/17 09:00 12/03/17 13:26 12/03/17 09:00 12/03/17 13:26 12/03/17 08:02 Intake and Output: 12/03/17 12/03/17 06:59 18:59 Intake Total 1070 Balance 1070 - Medications Medications: Current Medications Acetaminophen (Tylenol 325mg Tab) 650 mg PO Q6 PRN PRN Reason: Pain scale 1-10. Last Admin: 11/24/17 16:07 Dose: 650 mg Albuterol Sulfate (Albuterol 0.083% Inhal Gabriella (2.5 Mg/3 Ml) Ud) 2.5 mg INH RQ6 [facility] Last Admin: 12/03/17 13:19 Dose: 2.5 mg Amlodipine Besylate (Norvasc) 5 mg PEG DAILY [facility] Last Admin: 12/03/17 08:07 Dose: 5 mg Aspirin (Aspirin Chewable) 81 mg PEG DAILY [facility] Last Admin: 12/03/17 08:03 Dose: 81 mg Atorvastatin Calcium (Lipitor) 20 mg PEG HS [facility] Last Admin: 12/02/17 21:33 Dose: 20 mg Clopidogrel Bisulfate (Plavix) 75 mg PEG DAILY [facility] Last Admin: 12/03/17 08:09 Dose: 75 mg Dimethicone (Proshield Plus Skin Protectant) 1 applic TOP 0600,1800 [facility] Last Admin: 12/03/17 06:45 Dose: 1 applic Diphenoxylate HCl/Atropine (Lomotil 0.025-2.5 Mg Tablet) 1 tab PEG QID PRN PRN Reason: Diarrhea Last Admin: 12/01/17 00:55 Dose: 1 tab Epoetin Peterson (Procrit) 20,000 unit SC MWF [facility] Last Admin: 12/02/17 08:58 Dose: 20,000 unit Famotidine (Pepcid) 40 mg PEG HS [facility] Last Admin: 12/02/17 21:34 Dose: 40 mg Ferrous Sulfate (Feosol Liq) 300 mg PEG BID [facility] Last Admin: 12/03/17 08:06 Dose: 300 mg Hydralazine HCl (Apresoline) 25 mg PEG Q8 [facility] Last Admin: 12/03/17 13:26 Dose: 25 mg Labetalol HCl (Trandate) 100 mg PEG Q8 [facility] Last Admin: 12/03/17 06:45 Dose: 100 mg Lidocaine (Lidoderm) 1 ea TD DAILY [facility] Last Admin: 12/03/17 08:06 Dose: 1 ea Lisinopril (Zestril) 20 mg PEG DAILY [facility] Last Admin: 12/03/17 08:08 Dose: 20 mg Metformin HCl (Glucophage) 500 mg PEG BIDWM [facility] Last Admin: 12/03/17 08:03 Dose: 500 mg Oxandrolone (Oxandrin) 10 mg PO DAILY [facility] Sitagliptin Phosphate (Januvia) 50 mg PO DAILY [facility] Last Admin: 12/03/17 08:07 Dose: 50 mg Venlafaxine HCl (Effexor Xr) 37.5 mg PO DAILY [facility] Last Admin: 12/03/17 13:26 Dose: 37.5 mg - Labs Labs: 12/03/17 10:31 12/02/17 07:31 - Constitutional Appears: Well - Eye Exam Eye Exam: EOMI, Normal appearance, PERRL - ENT Exam ENT Exam: Mucous Membranes Moist, Normal Exam - Respiratory Exam Respiratory Exam: Clear to Ausculation Bilateral, NORMAL BREATHING PATTERN - Cardiovascular Exam Cardiovascular Exam: REGULAR RHYTHM, +S1, +S2. absent: Murmur - Neurological Exam Additional comments: Neurologically unchanged compared with previous examination. Assessment and Plan (1) CVA (cerebral vascular accident) Assessment & Plan: Continue current management plan along with PT/OT recommendations. Status: Acute
[2017-12-04] MEDS: Albuterol 0.083% Inhal Sol (2.5 mg/3 mL) UD INH SCH ×4 (01:45→19:47)
[2017-12-04] MEDS: Proshield Plus GEL TOP SCH ×2 (05:49→17:23)
[2017-12-04] MEDS: Venlafaxine 37.5 mg ER Cap PO SCH (08:21)
[2017-12-04] MEDS: Ferrous Sulfate 300 mg/5 mL Liq UD PEG SCH ×2 (08:22→17:23)
[2017-12-04] MEDS: Lidocaine 5% Patch TD SCH (08:23)
[2017-12-04] MEDS: Epoetin Alfa 20000 UNIT/ML Inj SC SCH (08:28)
--- NOTE | 2017-12-04 11:33 | CP.PCM.PN ---
Subjective - Date & Time of Evaluation Date of Evaluation: 12/04/17 Time of Evaluation: 07:40 - Subjective Subjective: Patient seen and examined this AM with . No acute overnight events. Patient is motivated and participates in PT. No other complaints. Objective - Vital Signs/Intake and Output Vital Signs (last 24 hours): Temp Pulse Resp BP Pulse Ox 97.7 F 65 19 143/65 97 12/04/17 08:28 12/04/17 08:28 12/04/17 08:28 12/04/17 08:28 12/04/17 08:28 Intake and Output: 12/04/17 12/04/17 06:59 18:59 Intake Total 850 Balance 850 - Medications Medications: Current Medications Acetaminophen (Tylenol 325mg Tab) 650 mg PO Q6 PRN PRN Reason: Pain scale 1-10. Last Admin: 11/24/17 16:07 Dose: 650 mg Albuterol Sulfate (Albuterol 0.083% Inhal Gabriella (2.5 Mg/3 Ml) Ud) 2.5 mg INH RQ6 [facility] Last Admin: 12/04/17 07:18 Dose: 2.5 mg Amlodipine Besylate (Norvasc) 5 mg PEG DAILY [facility] Last Admin: 12/04/17 08:21 Dose: 5 mg Aspirin (Aspirin Chewable) 81 mg PEG DAILY [facility] Last Admin: 12/04/17 08:21 Dose: 81 mg Atorvastatin Calcium (Lipitor) 20 mg PEG HS [facility] Last Admin: 12/03/17 21:25 Dose: 20 mg Clopidogrel Bisulfate (Plavix) 75 mg PEG DAILY [facility] Last Admin: 12/04/17 08:28 Dose: 75 mg Dimethicone (Proshield Plus Skin Protectant) 1 applic TOP 0600,1800 [facility] Last Admin: 12/04/17 05:49 Dose: 1 applic Diphenoxylate HCl/Atropine (Lomotil 0.025-2.5 Mg Tablet) 1 tab PEG QID PRN PRN Reason: Diarrhea Last Admin: 12/01/17 00:55 Dose: 1 tab Epoetin Peterson (Procrit) 20,000 unit SC MWF [facility] Last Admin: 12/04/17 08:28 Dose: 20,000 unit Famotidine (Pepcid) 40 mg PEG HS [facility] Last Admin: 12/03/17 21:26 Dose: 40 mg Ferrous Sulfate (Feosol Liq) 300 mg PEG BID [facility] Last Admin: 12/04/17 08:22 Dose: 300 mg Hydralazine HCl (Apresoline) 25 mg PEG Q8 [facility] Last Admin: 12/04/17 05:49 Dose: 25 mg Labetalol HCl (Trandate) 100 mg PEG Q8 [facility] Last Admin: 12/04/17 05:50 Dose: 100 mg Lidocaine (Lidoderm) 1 ea TD DAILY [facility] Last Admin: 12/04/17 08:23 Dose: 1 ea Lisinopril (Zestril) 20 mg PEG DAILY [facility] Last Admin: 12/04/17 08:23 Dose: 20 mg Metformin HCl (Glucophage) 500 mg PEG BIDWM [facility] Last Admin: 12/04/17 08:22 Dose: 500 mg Oxandrolone (Oxandrin) 10 mg PO DAILY [facility] Last Admin: 12/04/17 08:28 Dose: 10 mg Sitagliptin Phosphate (Januvia) 50 mg PO DAILY [facility] Last Admin: 12/04/17 08:22 Dose: 50 mg Venlafaxine HCl (Effexor Xr) 37.5 mg PO DAILY [facility] Last Admin: 12/04/17 08:21 Dose: 37.5 mg - Labs Labs: 12/03/17 10:31 12/02/17 07:31 - Additional Findings Additional findings: - Constitutional Appears: Non-toxic, No Acute Distress - Head Exam Head Exam: ATRAUMATIC - Eye Exam Eye Exam: Normal appearance - Respiratory Exam Respiratory Exam: Clear to Auscultation Bilateral, NORMAL BREATHING PATTERN. absent: Rhonchi, Wheezes - Cardiovascular Exam Cardiovascular Exam: REGULAR RHYTHM, +S1, +S2 - GI/Abdominal Exam GI & Abdominal Exam: Soft, Normal Bowel Sounds. 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 Recovering well in rehab. Has anemia of unknown origin s/p 1 unit of prbc. H&H yesterday .03/22.6 plan Hematology/oncology following Continue with PT/OT c/w meds as ordered neuro following c/w aspirin and plavix as per neuro GI consult appreciated Possible discharge to [facility] today. rest of the plan as ordered Patient seen, examined and plan d/w Dr. Ran Flores, pgy-2
[2017-12-05] MEDS: Albuterol 0.083% Inhal Sol (2.5 mg/3 mL) UD INH SCH ×4 (01:01→19:29)
[2017-12-05] MEDS: Proshield Plus GEL TOP SCH ×2 (06:38→17:02)
[2017-12-05] MEDS: Lidocaine 5% Patch TD SCH (08:26)
[2017-12-05] MEDS: Ferrous Sulfate 300 mg/5 mL Liq UD PEG SCH ×2 (08:28→16:27)
[2017-12-05] MEDS: Venlafaxine 37.5 mg ER Cap PO SCH (08:29)
--- NOTE | 2017-12-05 12:04 | CP.PCM.PN ---
Subjective - Date & Time of Evaluation Date of Evaluation: 12/05/17 Time of Evaluation: 10:35 - Subjective Subjective: Patient seen and examined with . No acute overnight events. Patient is motivated and participates in PT. Awaiting [facility] placement. No other complaints Objective - Vital Signs/Intake and Output Vital Signs (last 24 hours): Temp Pulse Resp BP Pulse Ox 97.3 F L 77 20 129/69 97 12/05/17 10:00 12/05/17 10:00 12/05/17 10:00 12/05/17 10:00 12/05/17 10:00 Intake and Output: 12/05/17 12/05/17 06:59 18:59 Intake Total 1000 Balance 1000 - Medications Medications: Current Medications Acetaminophen (Tylenol 325mg Tab) 650 mg PO Q6 PRN PRN Reason: Pain scale 1-10. Last Admin: 11/24/17 16:07 Dose: 650 mg Albuterol Sulfate (Albuterol 0.083% Inhal Gabriella (2.5 Mg/3 Ml) Ud) 2.5 mg INH RQ6 [facility] Last Admin: 12/05/17 07:29 Dose: 2.5 mg Amlodipine Besylate (Norvasc) 5 mg PEG DAILY [facility] Last Admin: 12/05/17 08:26 Dose: 5 mg Aspirin (Aspirin Chewable) 81 mg PEG DAILY [facility] Last Admin: 12/05/17 08:25 Dose: 81 mg Atorvastatin Calcium (Lipitor) 20 mg PEG HS [facility] Last Admin: 12/04/17 21:07 Dose: 20 mg Clopidogrel Bisulfate (Plavix) 75 mg PEG DAILY [facility] Last Admin: 12/05/17 08:25 Dose: 75 mg Dimethicone (Proshield Plus Skin Protectant) 1 applic TOP 0600,1800 [facility] Last Admin: 12/05/17 06:38 Dose: 1 applic Diphenoxylate HCl/Atropine (Lomotil 0.025-2.5 Mg Tablet) 1 tab PEG QID PRN PRN Reason: Diarrhea Last Admin: 12/01/17 00:55 Dose: 1 tab Epoetin Peterson (Procrit) 20,000 unit SC MWF [facility] Last Admin: 12/04/17 08:28 Dose: 20,000 unit Famotidine (Pepcid) 40 mg PEG HS [facility] Last Admin: 10/10/18 21:07 Dose: 40 mg Ferrous Sulfate (Feosol Liq) 300 mg PEG BID [facility] Last Admin: 12/05/17 08:28 Dose: 300 mg Hydralazine HCl (Apresoline) 25 mg PEG Q8 [facility] Last Admin: 12/05/17 05:31 Dose: 25 mg Labetalol HCl (Trandate) 100 mg PEG Q8 [facility] Last Admin: 12/05/17 05:31 Dose: 100 mg Lidocaine (Lidoderm) 1 ea TD DAILY [facility] Last Admin: 12/05/17 08:26 Dose: 1 ea Lisinopril (Zestril) 20 mg PEG DAILY [facility] Last Admin: 12/05/17 08:28 Dose: 20 mg Metformin HCl (Glucophage) 500 mg PEG BIDWM [facility] Last Admin: 12/05/17 08:25 Dose: 500 mg Oxandrolone (Oxandrin) 10 mg PO DAILY [facility] Last Admin: 12/05/17 08:31 Dose: 10 mg Sitagliptin Phosphate (Januvia) 50 mg PO DAILY [facility] Last Admin: 12/05/17 08:26 Dose: 50 mg Venlafaxine HCl (Effexor Xr) 37.5 mg PO DAILY [facility] Last Admin: 12/05/17 08:29 Dose: 37.5 mg - Labs Labs: 12/03/17 10:31 12/02/17 07:31 - Additional Findings Additional findings: - Constitutional Appears: Non-toxic, No Acute Distress - Head Exam Head Exam: ATRAUMATIC - Eye Exam Eye Exam: Normal appearance - Respiratory Exam Respiratory Exam: Clear to Auscultation Bilateral, NORMAL BREATHING PATTERN. absent: Rhonchi, Wheezes - Cardiovascular Exam Cardiovascular Exam: REGULAR RHYTHM, +S1, +S2 - GI/Abdominal Exam GI & Abdominal Exam: Soft, Normal Bowel Sounds. 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 Recovering well in rehab. Has anemia of unknown origin s/p 1 unit of prbc. H&H on 12/03/17 is 9.1/26.6 plan Hematology/oncology following Continue with PT/OT c/w meds as ordered neuro following c/w aspirin and plavix as per neuro GI consult appreciated Possible discharge to [facility] today. rest of the plan as ordered Patient seen, examined and plan d/w Dr. Ran Flores, pgy-2
[2017-12-06] MEDS: Albuterol 0.083% Inhal Sol (2.5 mg/3 mL) UD INH SCH ×3 (01:42→13:05)
[2017-12-06] MEDS: Proshield Plus GEL TOP SCH (05:57)
[2017-12-06 07:44] VITALS: RESP 18; TEMP 98.1; O2SAT 96
--- NOTE | 2017-12-06 08:34 | CP.PCM.PN ---
Subjective - Date & Time of Evaluation Date of Evaluation: 12/06/17 Time of Evaluation: 08:32 - Subjective Subjective: Pt is bring transferred to a care home rehab today.She should continue the procrit or aranesp until the hgb reaches 11gms. Objective - Vital Signs/Intake and Output Vital Signs (last 24 hours): Temp Pulse Resp BP Pulse Ox 98.1 F 69 18 143/61 96 12/06/17 07:43 12/06/17 07:43 12/06/17 07:43 12/06/17 07:43 12/06/17 07:43 Intake and Output: 12/06/17 12/06/17 06:59 18:59 Intake Total 1000 Balance 1000 - Medications Medications: Current Medications Acetaminophen (Tylenol 325mg Tab) 650 mg PO Q6 PRN PRN Reason: Pain scale 1-10. Last Admin: 11/24/17 16:07 Dose: 650 mg Albuterol Sulfate (Albuterol 0.083% Inhal Gabriella (2.5 Mg/3 Ml) Ud) 2.5 mg INH RQ6 [facility] Last Admin: 12/06/17 07:20 Dose: 2.5 mg Amlodipine Besylate (Norvasc) 5 mg PEG DAILY [facility] Last Admin: 12/05/17 08:26 Dose: 5 mg Aspirin (Aspirin Chewable) 81 mg PEG DAILY [facility] Last Admin: 12/05/17 08:25 Dose: 81 mg Atorvastatin Calcium (Lipitor) 20 mg PEG HS [facility] Last Admin: 12/05/17 21:28 Dose: 20 mg Clopidogrel Bisulfate (Plavix) 75 mg PEG DAILY [facility] Last Admin: 12/05/17 08:25 Dose: 75 mg Dimethicone (Proshield Plus Skin Protectant) 1 applic TOP 0600,1800 [facility] Last Admin: 12/06/17 05:57 Dose: 1 applic Diphenoxylate HCl/Atropine (Lomotil 0.025-2.5 Mg Tablet) 1 tab PEG QID PRN PRN Reason: Diarrhea Last Admin: 12/01/17 00:55 Dose: 1 tab Epoetin Peterson (Procrit) 20,000 unit SC MWF [facility] Last Admin: 12/04/17 08:28 Dose: 20,000 unit Famotidine (Pepcid) 40 mg PEG HS [facility] Last Admin: 10/11/18 21:28 Dose: 40 mg Ferrous Sulfate (Feosol Liq) 300 mg PEG BID [facility] Last Admin: 12/05/17 16:27 Dose: 300 mg Hydralazine HCl (Apresoline) 25 mg PEG Q8 [facility] Last Admin: 12/06/17 05:57 Dose: 25 mg Labetalol HCl (Trandate) 100 mg PEG Q8 [facility] Last Admin: 12/06/17 05:58 Dose: 100 mg Lidocaine (Lidoderm) 1 ea TD DAILY [facility] Last Admin: 12/05/17 08:26 Dose: 1 ea Lisinopril (Zestril) 20 mg PEG DAILY [facility] Last Admin: 12/05/17 08:28 Dose: 20 mg Metformin HCl (Glucophage) 500 mg PEG BIDWM [facility] Last Admin: 12/05/17 16:28 Dose: 500 mg Oxandrolone (Oxandrin) 10 mg PO DAILY [facility] Last Admin: 12/05/17 08:31 Dose: 10 mg Sitagliptin Phosphate (Januvia) 50 mg PO DAILY [facility] Last Admin: 12/05/17 08:26 Dose: 50 mg Venlafaxine HCl (Effexor Xr) 37.5 mg PO DAILY [facility] Last Admin: 12/05/17 08:29 Dose: 37.5 mg - Labs Labs: 12/03/17 10:31 12/02/17 07:31
[2017-12-06] MEDS: Ferrous Sulfate 300 mg/5 mL Liq UD PEG SCH (08:49)
[2017-12-06] MEDS: Venlafaxine 37.5 mg ER Cap PO SCH (08:49)
[2017-12-06] MEDS: Lidocaine 5% Patch TD SCH (08:51)
[2017-12-06] MEDS: Epoetin Alfa 20000 UNIT/ML Inj SC SCH (08:53)
--- NOTE | 2017-12-06 09:12 | CP.PCM.PN ---
Subjective - Date & Time of Evaluation Date of Evaluation: 12/06/17 Time of Evaluation: 09:11 - Subjective Subjective: Pt's hgb in 9.1gms.She is Objective - Vital Signs/Intake and Output Vital Signs (last 24 hours): Temp Pulse Resp BP Pulse Ox 98.1 F 69 18 143/61 96 12/06/17 07:43 12/06/17 08:50 12/06/17 07:43 12/06/17 08:50 12/06/17 07:43 Intake and Output: 12/06/17 12/06/17 06:59 18:59 Intake Total 1000 Balance 1000 - Medications Medications: Current Medications Acetaminophen (Tylenol 325mg Tab) 650 mg PO Q6 PRN PRN Reason: Pain scale 1-10. Last Admin: 11/24/17 16:07 Dose: 650 mg Albuterol Sulfate (Albuterol 0.083% Inhal Gabriella (2.5 Mg/3 Ml) Ud) 2.5 mg INH RQ6 [facility] Last Admin: 12/06/17 07:20 Dose: 2.5 mg Amlodipine Besylate (Norvasc) 5 mg PEG DAILY [facility] Last Admin: 12/06/17 08:50 Dose: 5 mg Aspirin (Aspirin Chewable) 81 mg PEG DAILY [facility] Last Admin: 12/06/17 08:49 Dose: 81 mg Atorvastatin Calcium (Lipitor) 20 mg PEG HS [facility] Last Admin: 12/05/17 21:28 Dose: 20 mg Clopidogrel Bisulfate (Plavix) 75 mg PEG DAILY [facility] Last Admin: 12/06/17 08:50 Dose: 75 mg Dimethicone (Proshield Plus Skin Protectant) 1 applic TOP 0600,1800 [facility] Last Admin: 12/06/17 05:57 Dose: 1 applic Diphenoxylate HCl/Atropine (Lomotil 0.025-2.5 Mg Tablet) 1 tab PEG QID PRN PRN Reason: Diarrhea Last Admin: 12/01/17 00:55 Dose: 1 tab Epoetin Peterson (Procrit) 20,000 unit SC MWF [facility] Last Admin: 12/06/17 08:53 Dose: 20,000 unit Famotidine (Pepcid) 40 mg PEG HS [facility] Last Admin: 12/05/17 21:28 Dose: 40 mg Ferrous Sulfate (Feosol Liq) 300 mg PEG BID [facility] Last Admin: 12/06/17 08:49 Dose: 300 mg Hydralazine HCl (Apresoline) 25 mg PEG Q8 [facility] Last Admin: 12/06/17 05:57 Dose: 25 mg Labetalol HCl (Trandate) 100 mg PEG Q8 [facility] Last Admin: 12/06/17 05:58 Dose: 100 mg Lidocaine (Lidoderm) 1 ea TD DAILY [facility] Last Admin: 12/06/17 08:51 Dose: 1 ea Metformin HCl (Glucophage) 500 mg PEG BIDWM [facility] Last Admin: 12/06/17 08:49 Dose: 500 mg Oxandrolone (Oxandrin) 10 mg PO DAILY [facility] Last Admin: 12/06/17 08:53 Dose: 10 mg Sitagliptin Phosphate (Januvia) 50 mg PO DAILY [facility] Last Admin: 12/06/17 08:50 Dose: 50 mg Venlafaxine HCl (Effexor Xr) 37.5 mg PO DAILY [facility] Last Admin: 12/06/17 08:49 Dose: 37.5 mg - Labs Labs: 12/03/17 10:31 12/02/17 07:31
--- NOTE | 2017-12-06 11:13 | CP.PCM.DIS ---
Provider - Provider Date of Admission: 11/05/17 14:07 Attending physician: Kristopher Tong MD Time Spent in preparation of Discharge (in minutes): 35 Diagnosis - Discharge Diagnosis (1) CVA (cerebral vascular accident) Status: Acute Priority: High (2) Hemiplegia affecting dominant side Status: Acute (3) Diabetes mellitus type 2 in nonobese Status: Chronic (4) Hyperlipidemia Status: Chronic (5) Hypertension Status: Chronic Hospital Course - Lab Results Lab Results: Most Recent Lab Values WBC 8.8 K/uL (4.8-10.8) 12/03/17 10:31 RBC 2.80 Mil/uL (3.80-5.20) L 12/03/17 10:31 Hgb 9.1 g/dL (12.0-16.0) L 12/03/17 10:31 Hct 26.6 % (34.0-47.0) L 12/03/17 10:31 MCV 95.1 fl (81.0-99.0) 12/03/17 10:31 MCH 32.5 pg (27.0-31.0) H 12/03/17 10:31 MCHC 34.2 g/dL (33.0-37.0) 12/03/17 10:31 RDW 15.2 % (11.5-14.5) H 12/03/17 10:31 Plt Count 411 K/uL (130-400) H 12/03/17 10:31 MPV 7.0 fl (7.2-11.7) L 12/02/17 05:25 Neut % (Auto) 77.5 % (50.0-75.0) H 12/02/17 05:25 Lymph % (Auto) 7.3 % (20.0-40.0) L 12/02/17 05:25 [place] % (Auto) 10.1 % (0.0-10.0) H 12/02/17 05:25 Eos % (Auto) 4.5 % (0.0-4.0) H 12/02/17 05:25 Baso % (Auto) 0.6 % (0.0-2.0) 12/02/17 05:25 Neut # (Auto) 6.6 K/uL (1.8-7.0) 12/02/17 05:25 Lymph # (Auto) 0.6 K/uL (1.0-4.3) L 12/02/17 05:25 [place] # (Auto) 0.9 K/uL (0.0-0.8) H 12/02/17 05:25 Eos # (Auto) 0.4 K/uL (0.0-0.7) 12/02/17 05:25 Baso # (Auto) 0.1 K/uL (0.0-0.2) 12/02/17 05:25 Neutrophils % (Manual) 83 % (42-75) H 12/02/17 05:25 Band Neutrophils % 1 % (0-2) 11/13/17 14:39 Lymphocytes % (Manual) 9 % (20-50) L 12/02/17 05:25 Monocytes % (Manual) 8 % (0-10) 12/02/17 05:25 Eosinophils % (Manual) 3 % (0-7) 11/28/17 05:20 Basophils % (Manual) 1 % (0-2) 11/28/17 05:20 Nucleated RBC % 1 % (0-0) H 11/28/17 05:20 Platelet Estimate Slightly increased (NORMAL) H 12/02/17 05:25 Large Platelets Present 12/02/17 05:25 Polychromasia Slight 11/28/17 05:20 Hypochromasia (manual) Slight 12/02/17 05:25 Poikilocytosis (manual Slight 11/13/17 14:39 Anisocytosis (manual) Slight 11/13/17 14:39 Ovalocytes Slight 11/13/17 14:39 Retic Count 2.9 % (0.5-1.5) H D 11/27/17 11:10 Hemoglobin A 96.8 Percent (>96.0) 11/27/17 17:15 Hemoglobin A2 2.2 Percent (1.8-3.5) 11/27/17 17:15 Hemoglobin C 0.0 Percent (0.0-0.0) 11/27/17 17:15 Hemoglobin F () <1.0 Percent (<2.0) 11/27/17 17:15 Hemoglobin S 0.0 Percent (0.0-0.0) 11/27/17 17:15 Variant Hemoglobin 0.0 Percent (0.0-0.0) 11/27/17 17:15 Hemoglobinopathy Red Blood Count 2.22 Mill/mcL (3.80-5.10) L 11/27/17 17:15 Hemoglobinopathy Hct 20.8 % (35.0-45.0) L 11/27/17 17:15 Hemoglobinopathy Hgb 6.8 g/dL (11.7-15.5) L 11/27/17 17:15 Hemoglobinopathy MCV 93.7 fL (80.0-100.0) 11/27/17 17:15 Hemoglobinopathy MCH 30.8 pg (27.0-33.0) 11/27/17 17:15 Hemoglobinopathy RDW 13.7 % (11.0-15.0) 11/27/17 17:15 Hemoglobinopathy Interp See note 11/27/17 17:15 Haptoglobin 291.5 mg/dL (30.0-200.0) H 11/27/17 11:10 Sodium 132 mmol/l (132-148) 12/02/17 07:31 Potassium 4.9 MMOL/L (3.6-5.0) 12/02/17 07:31 Chloride 97 mmol/L (98-107) L 12/02/17 07:31 Carbon Dioxide 25 mmol/L (22-30) 12/02/17 07:31 Anion Gap 15 (10-20) 12/02/17 07:31 BUN 30 mg/dl (7-17) H 12/02/17 07:31 Creatinine 1.1 mg/dl (0.7-1.2) 12/02/17 07:31 Est GFR ( Amer) 60 12/02/17 07:31 Est GFR (Non-Af Amer) 49 12/02/17 07:31 POC Glucose (mg/dL) 162 mg/dL (65-110) H 12/06/17 05:22 Random Glucose 177 mg/dL (65-105) H 12/02/17 07:31 Calcium 9.3 mg/dL (8.4-10.2) 12/02/17 07:31 Iron 33 ug/dL (37-170) L 11/27/17 11:10 TIBC 340 ug/dL (250-450) 11/27/17 11:10 % Saturation 10 % (20-55) L 11/27/17 11:10 Ferritin 50.1 ng/Ml (11.1-264.0) 11/27/17 11:10 Total Bilirubin 0.2 mg/dl (0.2-1.3) 11/27/17 05:15 AST 45 U/L (14-36) H D 11/27/17 05:15 ALT 35 U/L (9-52) 11/27/17 05:15 Alkaline Phosphatase 83 U/L (38-126) 11/27/17 05:15 Lactate Dehydrogenase 351 U/L (313-618) 11/27/17 11:10 Total Protein 6.8 G/DL (6.3-8.2) 11/27/17 05:15 Albumin 3.2 g/dL (3.5-5.0) L 11/27/17 05:15 Globulin 3.6 gm/dL (2.2-3.9) 11/27/17 05:15 Albumin/Globulin Ratio 0.9 (1.0-2.1) L 11/27/17 05:15 Vitamin B12 373 pg/mL (239-931) 11/27/17 11:10 Folate 17.4 ng/mL 11/27/17 11:10 TSH 3rd Generation 4.63 mIU/ML (0.46-4.68) 11/06/17 05:15 Stool Occult Blood Positive (NEGATIVE) H 11/29/17 08:29 Stool Globin Immunochem Detected (Not Detected) H 11/27/17 14:07 Blood Type O POSITIVE 11/27/17 17:15 Blood Type Confirm O POSITIVE 11/27/17 18:43 Antibody Screen Negative 11/27/17 17:15 Crossmatch See Detail 11/27/17 17:15 BBK History Checked No verified bt 11/27/17 17:15 - Hospital Course Hospital Course: 66 year old female admitted to rehab on 11/06/17 after an 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 She had previous CVA with mild left hemiparesis about 3 years ago. 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 Patient was treated with aspirin, Plavix and Lipitor. Patient was traferred to inpatient acute rehab on 11/06/17. Patient unable to talk but comprehends every when spoken to and nods to questions. Patient was motivated and participated in rehab treatment. Neurology, GI and hem/onc were involved during inpatient rehab. Dr. Varma recommends to continue Procrit or arnesp until Hb reaches 11 gram. Patient is hemodynamically stable to discharge to senior living. Discharge Exam - Head Exam Head Exam: ATRAUMATIC, NORMAL INSPECTION, NORMOCEPHALIC - Eye Exam Eye Exam: Normal appearance - ENT Exam ENT Exam: Mucous Membranes Moist - Respiratory Exam Respiratory Exam: Clear to PA & Lateral, NORMAL BREATHING PATTERN. absent: Wheezes, Respiratory Distress - Cardiovascular Exam Cardiovascular Exam: REGULAR RHYTHM, +S1, +S2 - GI/Abdominal Exam GI & Abdominal Exam: Normal Bowel Sounds, Soft. absent: Tenderness - Neurological Exam Neurological exam: Alert - Psychiatric Exam Psychiatric exam: Normal Affect - Skin Skin Exam: Normal Color, Warm Discharge Plan - Follow Up Plan Condition: GOOD Disposition: HOME/ ROUTINE
[2017-12-06 13:00] VITALS: BP 176/67; PULSE 78
== END 2017-12-06 13:15 | DRG 56 ==
PROVIDERS: ADMIT Family Medicine; ATTEND Family Medicine
PROC: F07M6FZ Therapeutic Exercise Treatment of Musculoskeletal System - Whole Body using Assistive, Adaptive, Supportive or Protective Equipment (ICD-10-PCS; 2017-11-05)
PROC: F07Z9FZ Gait Training/Functional Ambulation Treatment using Assistive, Adaptive, Supportive or Protective Equipment (ICD-10-PCS; 2017-11-05)
PROC: F08Z4FZ Home Management Treatment using Assistive, Adaptive, Supportive or Protective Equipment (ICD-10-PCS; 2017-11-05)
PROC: 3E0G76Z Introduction of Nutritional Substance into Upper GI, Via Natural or Artificial Opening (ICD-10-PCS; 2017-11-07)
PROC: F06Z6ZZ Communicative/Cognitive Integration Skills Treatment (ICD-10-PCS; principal; 2017-11-08)
PROC: 0HBRXZZ Excision of Toe Nail, External Approach (ICD-10-PCS; 2017-11-20)
PROC: 3E0F7GC Introduction of Other Therapeutic Substance into Respiratory Tract, Via Natural or Artificial Opening (ICD-10-PCS; 2017-11-29)
DX: I69.351 Hemiplegia and hemiparesis following cerebral infarction affecting right dominant side (principal); K57.91 Diverticulosis of intestine, part unspecified, without perforation or abscess with bleeding; I69.354 Hemiplegia and hemiparesis following cerebral infarction affecting left non-dominant side; I69.391 Dysphagia following cerebral infarction; I69.320 Aphasia following cerebral infarction; Z91.14 Patient's other noncompliance with medication regimen; Z93.1 Gastrostomy status; D50.9 Iron deficiency anemia, unspecified; E11.65 Type 2 diabetes mellitus with hyperglycemia; E53.8 Deficiency of other specified B group vitamins; E78.00 Pure hypercholesterolemia, unspecified; E78.5 Hyperlipidemia, unspecified; I10 Essential (primary) hypertension; Q66.89 Other specified congenital deformities of feet